=== PATIENT | male | born 1940 | race Caucasian/White ===

== ENCOUNTER → 2023-07-14 09:54 | Outpatient (REF) | payer MEDICARE, SELFPAY | LOC: REG 09:54 | PROVIDERS: ATTENDING PHYSICIAN Internal Medicine | DX: Z04.3 Encounter for examination and observation following other accident (principal); W19.XXXA Unspecified fall, initial encounter; J90 Pleural effusion, not elsewhere classified; J98.11 Atelectasis | CPT/HCPCS: 71046; 71110 ==

== ENCOUNTER → 2023-09-15 13:52 | Outpatient (REF) | payer MEDICARE, SELFPAY ==
[2023-09-15 14:35] LABS: % Basophils 0.6 % (0-2); % Eosinophils 2.9 % (0-6); % Immature Granulocytes 0.2 % (0-0.5); % Lymphocytes 12.2 % (20.5-51.1); % Monocytes 10.5 % (1.7-9.3); % Neutrophils 73.6 % (42.2-75.2); Absolute Eosinophils 0.2 10^3/uL (0-0.7); Absolute Lymphocytes 0.6 10^3/uL (1.2-3.4); Absolute Monocytes 0.6 10^3/uL (0.1-0.6); Absolute Neutrophils 3.9 10^3/uL (1.4-6.5); Hematocrit 24.4 % (39.0-52.0); Hemoglobin 7.9 g/dL (13.0-18.0); Mean Corp Hgb Conc. 32.4 g/dL (33.0-37.0); Mean Corpuscular Volume 89.7 fL (80.0-94.0); Mean Platelet Volume 11.6 fL (7.4-10.4); Nucleated Red Blood Cells % 0 % (-); Platelet Count 223 10^3/uL (130-400); Red Blood Cell Count 2.72 10^6/uL (4.70-6.10); Red Cell Dist. Width 16.2 % (11.5-14.5); White Blood Cell Count 5.2 10^3/uL (4.8-10.8)
[2023-09-15 15:06] LABS: Albumin 3.9 g/dl (3.5-5.0); Blood Urea Nitrogen 44 mg/dl (9-20); Calcium 8.9 mg/dl (8.4-10.2); Carbon Dioxide 23 mmol/L (22-30); Chloride 111 mmol/L (98-107); Glucose 100 mg/dl (70-99); Iron 65 ug/dl (49-181); Phosphorus 4.5 mg/dl (2.5-4.5); Potassium 4.9 mmol/L (3.5-5.1); Sodium 141 mmol/L (135-145); eGFR 37.35
[2023-09-15 15:10] LABS: Urine Protein 8 mg/dl (0-12)
[2023-09-15 15:15] LABS: Percent Saturation 16 % (20-50); Total Iron Binding Capacity 391 ug/dl (261-462)
[2023-09-15 15:48] LABS: Ferritin 10.6 ng/ml (17.9-464.0)
[2023-09-15 16:20] LABS: Folate 10.8 ng/ml (2.76-20); Vitamin B12 352 pg/ml (239-931)
[2023-09-18 11:11] LABS: Intact PTH 61.7 pg/ml (13.6-85.8)
[2023-09-19 20:55] LABS: Albumin 3.58 g/dL (3.75-5.01); Alpha 1 Globulin 0.33 g/dL (0.19-0.46); Alpha 2 Globulin 0.81 g/dL (0.48-1.05); SPEP IFE Reflex Not Done; Total Protein-Electrophoresis 6.5 g/dL (6.3-8.2)
== END ==
LOC: REG 13:52
PROVIDERS: ATTENDING PHYSICIAN Internal Medicine; FAMILY PHYSICIAN Internal Medicine
DX: N18.32 Chronic kidney disease, stage 3b (principal); D64.9 Anemia, unspecified
CPT/HCPCS: 36415; 80069; 82570; 82607; 82728; 82746; 83540; 83550; 83970; 84155; 84156; 84165; 85025

== ENCOUNTER → 2023-09-20 12:57 | Outpatient (REF) | payer MEDICARE, SELFPAY ==
[2023-09-23 16:41] LABS: 24 Hour Urine Total Volume 1600 mL; Ur Free Lambda Excretion/day 1.34 mg/d; Urine Collection Length 24 hr; Urine Free Kappa Excretion/Day 9.38 mg/d; Urine Free Kappa Light Chains 5.86 mg/L (0.00-32.90); Urine Free Lambda Light Chains 0.84 mg/L (0.00-3.79)
== END ==
LOC: REG 12:57
PROVIDERS: ATTENDING PHYSICIAN Internal Medicine; FAMILY PHYSICIAN Internal Medicine
DX: N18.32 Chronic kidney disease, stage 3b (principal)
CPT/HCPCS: 83521; 84156; 86335

== ENCOUNTER 2023-09-27 14:26 | Inpatient (IN) | payer MEDICARE, SELFPAY ==
[2023-09-27] VITALS (14 sets, daily range): BP systolic 110–130; BP diastolic 46–55
--- NOTE | 2023-09-27 11:53 | ED.GENMED ---
History of Present Illness
General
Chief Complaint: Abnormal Lab Value
Source: patient
Exam Limitations: none
Time Seen by Provider: 09/27/23 11:41
Travel History
Have you had any contact with someone who has COVID-19?: No
Do you have any symptoms of coronavirus? Fever > 100 degrees, chills, cough, shortness of breath, sore throat, loss of taste or smell, muscle aches, or headache?: No
History of Present Illness
History of Present Illness:
83-year-old male on Xarelto presents after seeing the mobile service rv technician today for low hemoglobin. He had blood work drawn last week and was told he had a hemoglobin of 7.9. He is short of breath with exertion. He denies chest or abdominal pain. He
denies any dark or tarry stools. He denies any new leg swelling. No weight gain. No other complaints
Past History
Past History
ED Past Medical History: HTN, Hypercholesterolemia, Valvular disease (Aortic stenosis, aortic insufficiency) and Other (Pulmonary embolism, prostate cancer)
ED Past Surgical History: Cardiac (Ablation) and Urological (Prostatectomy, cardiac ablations)
Social History
Tobacco: Former smoker
Alcohol: Occasional
Personal: (Atrial fibrillation, prostatectomy for prostate cancer and )
Living: with family
Employment: Retired
Family History
Family History: Negative Diabetes, Hypertension or CAD
Phy Exam
Physical Exam
Physical Exam:
General: Well-appearing male no acute respiratory distress
. HEENT: Normocephalic atraumatic
Heart: Regular rate and rhythm no murmurs
Course
Orders/Labs/Results
Orders:
Orders
09/27/23 11:56
Type+Screen Urgent
Complete Blood Count/With Diff Urgent
Comprehensive Metabolic Panel Urgent
NT-proBNP Urgent
09/27/23 12:45
CR Chest - 2 Views Urgent
Comment:
Reason For Exam: anemia, elevated bnp
09/27/23 13:12
Blood Bank Products [* Blood Bank Products] Urgent
Blood Bank Products: *Packed RBC Leuko(PRBC's)
Quantity: 2
Transfuse Today: Yes
Reason: Anemia
Abnormal Lab Results
09/27/23
11:56
RBC 2.27 L 10^6/uL
(4.70-6.10)
Hgb 6.6 L* g/dL
(13.0-18.0)
Hct 20.8 L* %
(39.0-52.0)
MCHC 31.7 L g/dL
(33.0-37.0)
RDW 16.2 H %
(11.5-14.5)
MPV 11.5 H fL
(7.4-10.4)
Absolute Lymphs (auto) 0.5 L 10^3/uL
(1.2-3.4)
Neutrophils % 80.8 H %
(42.2-75.2)
Lymphocytes % 8.6 L %
(20.5-51.1)
Chloride 109 H mmol/L
(98-107)
BUN 52 H mg/dl
(9-20)
Creatinine 2.1 H mg/dL
(0.7-1.3)
Crossmatch IS Only See Detail
09/27/23 11:56
09/27/23 11:56
Vital Signs
Initial and Last Documented VS:
Initial Vital Signs
Temp Pulse Resp BP Pulse Ox
98.2 F 82 16 110/50 98
09/27/23 11:21 09/27/23 11:21 09/27/23 11:21 09/27/23 11:21 09/27/23 11:21
Last Documented Vital Signs
Temp Pulse Resp BP Pulse Ox
98.2 F 82 16 110/50 98
09/27/23 11:21 09/27/23 11:21 09/27/23 11:21 09/27/23 11:21 09/27/23 11:21
*Critical Care Note
Total Time (30-74mins, 75-104mins- exclusive of procedures): Not Applicable
Update Note
Update Note:
Rectal exam shows brown color quickly heme positive stool. Hemoglobin 6.6 hematocrit 20.8. Vital signs are stable. Ordered 2 units of packed red blood cells will admit to hospital for symptomatic anemia and anticoagulated patient in the setting
of aortic stenosis
ED Attending Note
-
Portions of this chart may have been created with voice recognition software.� Occasional wrong word or��sound alike� substitutions may have occurred due to the inherent limitations of voice recognition software.
Discharge Plan
Departure
Patient Disposition: Admit
Date of Disposition: 09/27/23
Time of Disposition: 13:30
Admit to: Telemetry
Presentation/result/management discussed w/ accepting MD/DO: Hospitalist
Discharge Problem:
Symptomatic anemia
Prescriptions:
No Action
simvastatin 20 MG tablet
20 mg PO HS
Citrucel 500 MG tablet
500 mg PO DAILY
furosemide 80 MG tablet
80 mg PO DAILY
Sleep Aid (doxylamine) 25 MG tablet
25 mg PO HS
amlodipine 10 MG tablet
10 mg PO DAILY Qty: 30 3RF
irbesartan 150 MG tablet
150 mg PO DAILY Qty: 30 3RF
carvedilol 3.125 MG tablet
6.25 mg PO BID
ascorbic acid (vitamin C) [Vitamin C] 1,000 mg Tablet
1,000 mg PO DAILY
calcium carbonate-vitamin D3 [Calcium 600 + D(3)] 600 mg-10 mcg (400 unit) Tablet
1 tab PO DAILY
Xarelto 15 mg Tablet
15 mg PO QPM
Motrin
2 tab PO DAILYPRN PRN (Reason: mild pain)
Referrals:
Daniel Forrest MD [Family Provider] -
Interventions
Interventions:
*Risk Screen - Suicide Last Done: 09/27/23 12:05
*General Assessment Last Done: 09/27/23 12:05
*Neglect/Abuse Screening Last Done: 09/27/23 12:05
*ED COVID-19 Vaccine History Last Done: 09/27/23 11:21
[2023-09-27 12:23] LABS: % Basophils 0.5 % (0-2); % Eosinophils 1.2 % (0-6); % Immature Granulocytes 0.3 % (0-0.5); % Lymphocytes 8.6 % (20.5-51.1); % Monocytes 8.6 % (1.7-9.3); % Neutrophils 80.8 % (42.2-75.2); Absolute Eosinophils 0.1 10^3/uL (0-0.7); Absolute Lymphocytes 0.5 10^3/uL (1.2-3.4); Absolute Monocytes 0.5 10^3/uL (0.1-0.6); Absolute Neutrophils 4.8 10^3/uL (1.4-6.5); Mean Corp Hgb Conc. 31.7 g/dL (33.0-37.0); Mean Corpuscular Hgb 29.1 pg (27.0-31.0); Mean Corpuscular Volume 91.6 fL (80.0-94.0); Mean Platelet Volume 11.5 fL (7.4-10.4); Nucleated Red Blood Cells % 0 % (-); Platelet Count 247 10^3/uL (130-400); Red Blood Cell Count 2.27 10^6/uL (4.70-6.10); Red Cell Dist. Width 16.2 % (11.5-14.5); White Blood Cell Count 5.9 10^3/uL (4.8-10.8)
[2023-09-27 12:24] LABS: ALT (SGPT) 19 U/L (0-50); AST (SGOT) 23 U/L (17-59); Alkaline Phosphatase 79 U/L (38-126); Blood Urea Nitrogen 52 mg/dl (9-20); Calcium 8.9 mg/dl (8.4-10.2); Carbon Dioxide 24 mmol/L (22-30); Chloride 109 mmol/L (98-107); Glucose 90 mg/dl (70-99); Potassium 4.7 mmol/L (3.5-5.1); Sodium 141 mmol/L (135-145); Total Bilirubin 0.6 mg/dl (0.2-1.3); Total Protein 6.4 g/dl (6.3-8.2); eGFR 31.04
[2023-09-27 12:32] LABS: Hematocrit 20.8 % (39.0-52.0); Hemoglobin 6.6 g/dL (13.0-18.0)
[2023-09-27 12:33] LABS: NT-proBNP 3320 pg/ml
--- NOTE | 2023-09-27 13:34 | CON.GI ---
Addendum entered and electronically signed by Kimmy Wild MD 09/27/23 16:20:
I saw and examined the patient.
The FORKLIFT TECHNICIAN or PA's note was reviewed and I agree with the note.
Comment: 83-year-old male with history of atrial fibrillation on Xarelto, history of aortic stenosis, PE, prostrate cancer, presenting with shortness of breath and outpatient labs showing hemoglobin of 6.6. He reports that he was noted to have
anemia in the last few years but more so recently, was on oral iron previously but it was giving him black stool and had to stop, he was supposed to get IV iron infusion in the next couple of days but was sent to the ER with a most recent
hemoglobin. Denies any abdominal pain, nausea, vomiting, heartburn, trouble swallowing, constipation, diarrhea, blood in the stool or black stool. No unintentional weight loss. He does take Motrin as needed but not on a regular daily basis. Last
colonoscopy [address] 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
Rectal exam in the ER with heme positive stool.
-Iron deficiency anemia with heme positive stool
Rule out esophagitis, ulcer disease, gastritis versus other
Xarelto is on hold at this time
Will do upper endoscopy tomorrow to evaluate followed by colonoscopy the day after
Received 2 units of packed red blood cells in the hospital
Monitor H&H and transfuse as needed
Will follow
Original Note:
Consultation
-
Date/Time Consultation Requested: 09/27/23 1330
Date/Time Consultation Performed: 09/27/23 1345
Requesting Provider: Cas Roberts PA-C
Performing Provider: ERNIE Khoury, Kimmy Wild MD
Reason for Consultation: anemia
Medical History
Chief Complaint / HPI
Chief Complaint: shortness of breath
History of Present Illness:
Pt is an 83yo with afib on Xarelto, prior ablation, pacer, first degree AV block, , bicuspid AV, PE, prostate CA, colon polyps with resection of adenoma at IC valve by Dr. Page 2004, fall in June 2023 presents today with shortness of
breath after seen by plant operations worker and noted hbg 6.6. last hbg 7.9 on 09/15/23 and 9.3 on 01/20/23. Rectal in ER brown heme + stool. Pt admits to discussing need for iron infusion but no prior transfusion in past. Pt also recalls difficulty with vagal
episode with procedure in past.
Pt admits to fatigue and shortness of breath but denies dysphagia, GERD, nausea, vomiting, abdominal pain, diarrhea, constipation, visible blood or black in stools.
last scopes:
05/2015 EGD-min[facility]ale duodenal polyps, gastric polyps, nodularity in greater curvature, HH, irreg zline bx neg
09/2013- colonoscopy minissale- 3 mm polyp IC valve, diverticulosis, non bleeding hemorrhoid, absent prostate bx bx neg
Past Medical History
Past Medical History: Arrhythmias (afib on xarelto, AV block), Cancer (prostate CA), HTN, Hypercholesterolemia, Valvular Disease (, aortic insufficiency, bicuspid AV) and Other (PE, fall in June 2023)
Past Surgical History: Cardiac (pacer, ablation) and Orthopedic (knee surgery)
Social History
Tobacco: Former Smoker (quit 1983)
Alcohol: Other (prior social ETOH quit in June)
Drug: None
Personal:
Living: With Family
Employment: Retired
Family History
Family History: Other (no family hx colon CA or polyps)
Allergies / Home Medications
Allergy/AdvReac Type Severity Reaction Status Date / Time
lisinopril [Lisinopril] Allergy Intermediate cough Verified 09/27/23 11:22
sotalol [Sotalol] Allergy Intermediate bradycardia Verified 09/27/23 11:22
candesartan [Candesartan] Allergy Unknown PT UNAWARE Verified 09/27/23 11:22
of allergy
Medication Instructions Recorded
simvastatin 20 mg tablet 20 mg PO HS 09/27/09
methylcellulose (laxative) 500 mg 500 mg PO DAILY 08/30/15
tablet (Citrucel)
doxylamine succinate 25 mg tablet 25 mg PO HS 06/08/17
(Sleep Aid (doxylamine))
furosemide 80 mg tablet 80 mg PO DAILY 06/08/17
amlodipine 10 mg tablet 10 mg PO DAILY ##30 06/11/17
irbesartan 150 mg tablet 150 mg PO DAILY ##30 06/11/17
carvedilol 3.125 mg tablet 6.25 mg PO BID 09/22/17
Motrin 2 tab PO DAILYPRN PRN mild pain 09/27/23
ascorbic acid (vitamin C) 1,000 mg 1,000 mg PO DAILY 09/27/23
tablet (Vitamin C)
calcium carbonate 600 mg-vitamin 1 tab PO DAILY 09/27/23
D3 10 mcg (400 unit) tablet
(Calcium 600 + D(3))
rivaroxaban 15 mg tablet (Xarelto) 15 mg PO QPM 09/27/23
Review of Systems
-
History Source: Patient
Constitutional: Reports Weight Loss (10 lbs after fall now improving)
EENT: Reports No Symptoms
Respiratory: Reports Trouble Breathing (with exertion)
Cardiac: Reports No Symptoms
Abdomen/GI: Reports No Symptoms
: Reports No Symptoms
Musculoskeletal: Reports No Symptoms
Skin: Reports No Symptoms
Neurological: Reports Weakness
Endocrine: Reports No Symptoms
Hematologic/Lymphatic: Reports No Symptoms
Vital Signs
Temp Pulse Resp BP Pulse Ox
98.2 F 82 16 110/50 98
09/27/23 11:21 09/27/23 11:21 09/27/23 11:21 09/27/23 11:21 09/27/23 11:21
Physical Exam
Exam
General: Well Developed, Well Nourished, No Apparent Distress and Other (pale appearing)
HEENT: Normocephalic and Anicteric
Respiratory: Clear
Cardiac: Regular Rhythm (with pacer)
GI: Soft, Non Tender and Non Distended
Musculoskeletal: No Clubbing and No Cyanosis
Skin: Warm and Dry
Neuro: Awake, Alert and AO x 3
Psych: Calm
Results
WBC 5.9 10^3/uL (4.8-10.8) 09/27/23 11:56
Hgb 6.6 g/dL (13.0-18.0) L* 09/27/23 11:56
Hct 20.8 % (39.0-52.0) L* 09/27/23 11:56
MCV 91.6 fL (80.0-94.0) 09/27/23 11:56
Plt Count 247 10^3/uL (130-400) 09/27/23 11:56
Absolute Neuts (auto) 4.8 10^3/uL (1.4-6.5) 09/27/23 11:56
Sodium 141 mmol/L (135-145) 09/27/23 11:56
Potassium 4.7 mmol/L (3.5-5.1) 09/27/23 11:56
Chloride 109 mmol/L (98-107) H 09/27/23 11:56
Carbon Dioxide 24 mmol/L (22-30) 09/27/23 11:56
BUN 52 mg/dl (9-20) H 09/27/23 11:56
Creatinine 2.1 mg/dL (0.7-1.3) H 09/27/23 11:56
Calcium 8.9 mg/dl (8.4-10.2) 09/27/23 11:56
Total Bilirubin 0.6 mg/dl (0.2-1.3) 09/27/23 11:56
AST 23 U/L (17-59) 09/27/23 11:56
ALT 19 U/L (0-50) 09/27/23 11:56
Alkaline Phosphatase 79 U/L (38-126) 09/27/23 11:56
Diagnostic Image Results:
08/2023 renal US
IMPRESSION: No focal abnormality of the bladder with no postvoid bladder residual.
Simple cyst arising from the lower pole the right kidney. No evidence of pelvicalyceal dilation bilaterally.
Suggestion of mild bilateral diffuse renal parenchymal thinning.
�
05/2015 EGD-minissale duodenal polyps, gastric polyps, nodularity in greater curvature, HH, irreg zline bx neg
09/2013- colonoscopy minissale- 3 mm polyp IC valve, diverticulosis, non bleeding hemorrhoid, absent prostate bx bx neg
Assessment / Plan
-
Pt is an 83yo with afib on Xarelto, prior ablation, pacer, first degree AV block, , bicuspid AV, PE, prostate CA, colon polyps with resection of adenoma at IC valve by Dr. Page 2004, fall in June 2023 presents today with shortness of
breath after seen by plant operations worker and noted hbg 6.6. last hbg 7.9 on 09/15/23 and 9.3 on 01/20/23. Rectal in ER brown heme + stool. Pt admits to discussing need for iron infusion but no prior transfusion in past. Occasional NSAID use. 05/2015
EGD-minissale duodenal polyps, gastric polyps, nodularity in greater curvature, HH, irreg zline bx neg 09/2013- colonoscopy minissale- 3 mm polyp IC valve, diverticulosis, non bleeding hemorrhoid, absent prostate bx bx neg
-heme + anemia with recent low iron levels
-afib on Xarelto with prior ablation
-fall 06/2023
-hx vagal episode with piror colonoscopy in past.
other medical problems:
-pacer
-first degree AV block
-
-PE
-prostate CA
-colon polyps with hx resection of adenoma IC valve 2004
PLAN:
etiology of anemia related to PUD with occasional NSAID use, ectasia anywhere in GI tract with hx , colon polyp, mass vs other
agree with transfusion
last Xarelto 2/11 PM
ok for clear diet
reviewed option with transfusion and monitor hbg, less invasive testing with UGI/virtual colon with limitation with AVM's etc, vs EGD/colon(IP vs OP testing)
pt considering options
pt review hx vagal episode in past with procedure
will review with Dr. Wild for testing
will follow
-
-
Thank you for consultation and allowing me to participate in the patient's care. Please call the hog confinement system manager GI physician during the after hours with any questions or concerns.
--- NOTE | 2023-09-27 13:38 | HPS.HSE ---
Addendum entered and electronically signed by Ochoa Duran MD 09/27/23 15:30:
I saw and examined the patient.
The TELETYPE MECHANIC or PA's note was reviewed and I agree with the note.
Comment: 83 y/o M hx of HTN, HLD, on Xarelto, hx of PE, prostate Cancer presents to ER with symptomatic anemia with SOB and Hb of 6.6. He was sent in by Nephrology. Last Hb 7.9 late 10 days prior and 9.3 in January. in ER, heme+ stools. No prior hx
of GI bleed and was planned for IV Iron infusions but no prior hx of blood transfusions. No other complaints.
Physical Exam
General:�Well Developed, Well Nourished and No Apparent Distress
HEENT:�NormoCephalic, Moist mucous membranes and Atraumatic
Respiratory:�Clear
Cardiac:�S1/S2 and Regular Rhythm; No Murmur or Rub
GI:�Soft, Non Tender, Non Distended and Normal Bowel Sounds; No Organomegaly
Rectal:�Deferred by Provider
Musculoskeletal:�No Clubbing, No Cyanosis and Other (Bilateral lower extremities pitting edema)
Skin:�No Rash
Neuro:�AO x 3 and Nonfocal/grossly intact
Psych:�Calm
Assessment:
acute symptomatic blood loss anemia
- check anemia indices
- type/screen - 2 units today; IV Lasix in between units
- hold Xarelto
- clears (no reds)
- PPI drip
- GI consulted
hx of
- follow BP closely
Essential HTN
- hold ARB/CCB
HLD - statin
hx of parox Afib
- hold Xarelto
hx of PE
hx of prostate Cancer
DVT ppx: SCDs
Code: Full
Original Note:
Family Physician
-
Family Physician: Cas Frorest
Chief Complaint
-
low hemoglbin
History of Present Illness
83-year-old male with past medical history of hypertension, hyperlipidemia, aortic stenosis, pulmonary embolism, prostate cancer, A-fib on Xarelto presents after seeing the rn endocrinology today for low hemoglobin.� He had blood work drawn last week
and was told he had a hemoglobin of 7.9.� Patient is scheduled for iron infusion on Wednesday. He was asked to follow-up with [facility]. He had blood work done last week again and was noted to have low hemoglobin.He was asked by nephrology to
come to the ER. Patient denied any black, dark or bloody stools. Denied any hematemesis, denied any abdominal pain. Patient denied any headache, dizziness, syncopal episode. Patient denied fever, chills, chest pain. Patient stated short of
breath with exertion for 1 week. Patient has chronic bilateral lower extremity edema. noted worsening of edema for past 1 week. Denied dysuria hematuria.
heme positive in ER. hgb 6.6. 2 units ordered in ER. admitting for further management.
Medical History
Past Medical History
Past Medical History: Reports Other
Additional Past Medical History:
Hypertension
Hyperlipidemia
Aortic insufficiency
Pulmonary embolism
Prostate cancer
A-fib
Past Surgical History: Reports Other
Additional Past Surgical History:
Multiple cardiac ablation
Prostatectomy
Social History
Tobacco: Former Smoker
Alcohol: Former
Drug: None
Family History
Family History: Not pertinent
Allergies / Home Medications
Allergies reflects when Allergies were last updated in [facility].
Home Medications with original date entered in [facility]
Allergy/Medication List:
Allergies
Allergy/AdvReac Type Severity Reaction Status Date / Time
lisinopril [Lisinopril] Allergy Intermediate cough Verified 09/27/23 11:22
sotalol [Sotalol] Allergy Intermediate bradycardia Verified 09/27/23 11:22
candesartan [Candesartan] Allergy Unknown PT UNAWARE Verified 09/27/23 11:22
of allergy
Home Medications
simvastatin 20 mg tablet 20 mg PO HS 09/27/09
methylcellulose (laxative) 500 mg tablet (Citrucel) 500 mg PO DAILY 08/30/15
doxylamine succinate 25 mg tablet (Sleep Aid (doxylamine)) 25 mg PO HS 06/08/17
furosemide 80 mg tablet 80 mg PO DAILY 06/08/17
carvedilol 3.125 mg tablet 6.25 mg PO BID 09/22/17
Motrin 2 tab PO DAILYPRN PRN mild pain 09/27/23
amlodipine 10 mg tablet 10 mg PO DAILY Blood Pressure 09/27/23
ascorbic acid (vitamin C) 1,000 mg tablet (Vitamin C) 1,000 mg PO DAILY 09/27/23
calcium carbonate 600 mg-vitamin D3 10 mcg (400 unit) tablet (Calcium 600 + D(3)) 1 tab PO DAILY 09/27/23
irbesartan 150 mg tablet 150 mg PO DAILY Blood Pressure 09/27/23
rivaroxaban 15 mg tablet (Xarelto) 15 mg PO QPM 09/27/23
Review of Systems
-
Constitutional: Reports No Symptoms
EENT: Reports No Symptoms
Respiratory: Reports Trouble Breathing
Cardiac: Reports No Symptoms
Abdomen/GI: Reports No Symptoms
: Reports No Symptoms
Musculoskeletal: Reports Edema (Bilateral lower extremity edema)
Skin: Reports No Symptoms
Neurological: Reports No Symptoms
Endocrine: Reports No Symptoms
Hematologic/Lymphatic: Reports No Symptoms
Psych: Reports No Symptoms
Physical Exam
Vital Signs
Vital Signs
Temp Pulse Resp BP Pulse Ox
98.2 F 82 16 110/50 98
09/27/23 11:21 09/27/23 11:21 09/27/23 11:21 09/27/23 11:21 09/27/23 11:21
Physical Exam
General: Well Developed, Well Nourished and No Apparent Distress
HEENT: NormoCephalic, Moist mucous membranes and Atraumatic
Respiratory: Clear
Cardiac: S1/S2 and Regular Rhythm; No Murmur or Rub
GI: Soft, Non Tender, Non Distended and Normal Bowel Sounds; No Organomegaly
Rectal: Deferred by Provider
Musculoskeletal: No Clubbing, No Cyanosis and Other (Bilateral lower extremities pitting edema)
Skin: No Rash
Neuro: AO x 3 and Nonfocal/grossly intact
Psych: Calm
Laboratory Results
-
09/27/23 11:56
09/27/23 11:56
Laboratory Results
Total Bilirubin 0.6 mg/dl (0.2-1.3) 09/27/23 11:56
AST 23 U/L (17-59) 09/27/23 11:56
ALT 19 U/L (0-50) 09/27/23 11:56
Alkaline Phosphatase 79 U/L (38-126) 09/27/23 11:56
Data Reviewed
-
Lab Data: Labs Reviewed by me
Impression/Plan
-
#acute blood loss anemia
-hgb 6.6
-brown heme positive stool
-Protonix
-2 units or PRBC in ER
-NPO after MN
-clear liquid diet
-trend hgb
=GI consult
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
-cr 2.1
-trend bmp
#hxt of Nonobstructive coronary artery disease mitral regurg/Mild to moderate mitral regurgitation and mild mitral stenosis
#hxt of Moderate aortic insufficiency and moderate aortic stenosis
-BNP 3320, CHEST X RAY with Mild pulmonary vascular congestion. Mild cardiac enlargement.Tiny bilateral pleural effusions.
-hold oral Lasix due to BENITO
-Lasix iv in between transfusion
#History of bilateral PE in 2012.
-hold Xarelto
#Chronic bilateral lower extremity edema.
# Persistent atrial fibrillation
-obtain EKG
-multiple cardiac ablation in the past
-CTm
-Coreg continued with hold parameter
#essential htn
-BP stable
-hold Norvasc and irbesartan due ot soft BP
#HLD
-statin continued
#DVT prophylaxis
-scd
#CODE Status
-full code
[2023-09-27] MEDS: PROTONIX IV 80 MG IV (13:47)
[2023-09-27] MEDS: PROTONIX 100 IV (13:47)
[2023-09-27 14:52] LABS: Iron 47 ug/dl (49-181)
[2023-09-27 15:01] LABS: Percent Saturation 11 % (20-50); Total Iron Binding Capacity 421 ug/dl (261-462)
[2023-09-27 15:28] LABS: Ferritin 7.9 ng/ml (17.9-464.0)
[2023-09-27 16:00] LABS: Vitamin B12 348 pg/ml (239-931)
[2023-09-27] MEDS: LASIX 40 MG IV (16:12)
--- NOTE | 2023-09-27 16:54 | PTCARENOTE ---
patient admitted from ED for anemia. 1st unit of PRBC is infusing. the order to give 2 PRBC units with IV Lasix 40 mg in between. H&H scheduled for 6pm. patient is asymptomatic. denies dizziness, lightheadedness, VSS. denies pain. NPO with exception
of sips of clera up until 4 hrs prior EGD tomorrow. assessment as documented. cont to monitor
[2023-09-27 20:42] LABS: Hematocrit 23.8 % (39.0-52.0); Hemoglobin 7.9 g/dL (13.0-18.0)
[2023-09-27] MEDS: COREG PO (21:02)
[2023-09-27] MEDS: LIPITOR 10 MG PO (21:03)
[2023-09-28] VITALS (7 sets, daily range): BP systolic 16–150; BP diastolic 45–57
[2023-09-28] MEDS: PROTONIX 100 IV ×2 (00:08→09:03)
[2023-09-28 00:45] LABS: Hematocrit 23.3 % (39.0-52.0); Hemoglobin 7.8 g/dL (13.0-18.0)
[2023-09-28 06:21] LABS: INR 1.44; PT 17.4 Sec (11.4-14.6)
[2023-09-28 06:22] LABS: Hemoglobin 7.8 g/dL (13.0-18.0); Mean Corp Hgb Conc. 32.5 g/dL (33.0-37.0); Mean Corpuscular Hgb 29.3 pg (27.0-31.0); Mean Corpuscular Volume 90.2 fL (80.0-94.0); Mean Platelet Volume 11.5 fL (7.4-10.4); Platelet Count 208 10^3/uL (130-400); Red Blood Cell Count 2.66 10^6/uL (4.70-6.10); Red Cell Dist. Width 15.5 % (11.5-14.5); White Blood Cell Count 6.2 10^3/uL (4.8-10.8)
[2023-09-28 06:42] LABS: Blood Urea Nitrogen 43 mg/dl (9-20); Calcium 8.3 mg/dl (8.4-10.2); Carbon Dioxide 24 mmol/L (22-30); Chloride 110 mmol/L (98-107); Estimated Creatinine Clearance 32 ml/min; Glucose 79 mg/dl (70-99); Sodium 141 mmol/L (135-145)
[2023-09-28] MEDS: COREG PO ×2 (08:48→21:36)
[2023-09-28] MEDS: FERRLECIT 110 MG IV (13:45)
--- NOTE | 2023-09-28 15:29 | W.PN.HOSP.TC ---
Today's Communication/Plan
-
colonoscopy tomorrow
Assessment / Plan
Assessment / Plan
Assessment:
acute symptomatic blood loss anemia
- s/p 2 units and Hb is 7.8
- anemia workup shows iron deficiency; IV iron course started
- hold Xarelto
- clears (no reds)
- PPI BID
- GI following
- EGD 09/28 negative
- Colonoscopy: planned tomorrow
hx of
- follow BP closely
Essential HTN
- hold ARB/CCB
HLD - statin
hx of parox Afib
- hold Xarelto
hx of PE
hx of prostate Cancer
DVT ppx: SCDs
Code: Full
Anticipated Discharge: 24 - 48 hours
Subjective/Interval History
-
Date of Service: September 28, 2023
late entry seen prior to EGD and denied any new complaints
Objective Data
-
Labs:
Laboratory Results
09/28/23
05:15
WBC 6.2
Hgb 7.8 L
Hct 24.0 L
Plt Count 208
PT 17.4 H
INR 1.44
Sodium 141
Potassium 4.0
Chloride 110 H
Carbon Dioxide 24
BUN 43 H
Creatinine 1.9 H
Glucose 79
Calcium 8.3 L
Vital Signs:
Vital Signs
Temp Pulse Resp BP Pulse Ox
97.8 F 60 16 119/46 98
09/28/23 12:10 09/28/23 12:10 09/28/23 12:10 09/28/23 12:10 09/28/23 12:10
I&O
09/27/23 09/28/23 09/29/23
06:59 06:59 06:59
Intake Total 1340 / 1340
Output Total 1200 / 1200
Balance 140 / 140
Physical Exam
-
General: No Apparent Distress
HEENT: Normocephalic and Atraumatic
Respiratory: Negative Wheezes or Rales
Cardiac: Regular Rhythm and S1/S2
GI: Soft and Nontender
Genito-urinary: No Costovertebral Tender
Neuro: AO x 3
Psych: Calm
Data Reviewed
-
Total Time Spent with Patient (in minutes): 43
Labs: Labs Reviewed by me
--- NOTE | 2023-09-28 15:31 | CM ---
Alert awake oriented patient who lives with his Carmen who lives in a 2 story home with 4 step to enter and 13 steps to bed and bathroom. He is independent in driving and in all activities of daily living.He was offered Vn he declined need.For
colonoscopy tomorrow.
No VN hx / No SNF history
Ph[facility]
PCP DR Marco Churchill
PLAN Home Declined VN
[2023-09-28] MEDS: NULYTELY SOLUTION 4 LITERS PO (17:31)
[2023-09-28] MEDS: PROTONIX IV 40 MG IV (21:36)
[2023-09-28] MEDS: LIPITOR 10 MG PO (21:36)
[2023-09-28] MEDS: NSS (PRESERVATIVE FREE) 10 ML IV (21:36)
[2023-09-28] MEDS: TYLENOL 650 MG PO (22:29)
[2023-09-29 03:40] VITALS: BP 121/51
[2023-09-29 06:24] LABS: Hematocrit 25.4 % (39.0-52.0); Hemoglobin 8.2 g/dL (13.0-18.0); Mean Corp Hgb Conc. 32.3 g/dL (33.0-37.0); Mean Corpuscular Hgb 29.4 pg (27.0-31.0); Mean Platelet Volume 11.8 fL (7.4-10.4); Platelet Count 203 10^3/uL (130-400); Red Blood Cell Count 2.79 10^6/uL (4.70-6.10); Red Cell Dist. Width 15.3 % (11.5-14.5); White Blood Cell Count 7.5 10^3/uL (4.8-10.8)
--- NOTE | 2023-09-29 06:24 | PTCARENOTE ---
Pt finished 4L Polyethylene Glycol in preparation to colonoscopy this morning. Pt still having brown stool with flecks of formed pieces. Will pass on to dayshift RN.
[2023-09-29 06:44] LABS: Blood Urea Nitrogen 34 mg/dl (9-20); Calcium 8.4 mg/dl (8.4-10.2); Carbon Dioxide 24 mmol/L (22-30); Chloride 109 mmol/L (98-107); Estimated Creatinine Clearance 34 ml/min; Glucose 98 mg/dl (70-99); Potassium 4.1 mmol/L (3.5-5.1); Sodium 138 mmol/L (135-145); eGFR 37.35
[2023-09-29 07:00] VITALS: BP 124/50
[2023-09-29] MEDS: TYLENOL 650 MG PO (08:02)
[2023-09-29] MEDS: NSS (PRESERVATIVE FREE) 10 ML IV (08:03)
[2023-09-29] MEDS: PROTONIX IV 40 MG IV (08:03)
[2023-09-29] MEDS: COREG 6.25 MG PO (08:07)
[2023-09-29 11:00] VITALS: BP 145/71
--- NOTE | 2023-09-29 11:05 | W.PN.HOSP.TC ---
Addendum entered and electronically signed by Ochoa Duran MD 09/30/23 08:55:
Yes, heme positive stool/acute blood loss anemia is related to/associated with/due to/exacerbated by Xarelto.
Parox Afib
Addendum entered and electronically signed by Ochoa Duran MD 09/29/23 13:48:
per GI: 'colon - few diverticulosis, small polyps (resected), severe hemorrhoids, otherwise normal. Can resume xarelto tomorrow'
More than 30 minutes spent in discharge including
Final examination of the patient
Summarizing hospital stay
Instructions for continuing care to all relevant caregivers
Preparation of discharge records, prescriptions, and referral forms
Total time spent (in minutes): 40
Original Note:
Today's Communication/Plan
-
colonoscopy today
Assessment / Plan
Assessment / Plan
Assessment:
acute symptomatic blood loss anemia
- s/p 2 units and Hb is 8.2
- anemia workup shows iron deficiency; IV iron course started
- hold Xarelto
- clears (no reds)
- PPI BID
- GI following
- EGD 09/28 negative
- Colonoscopy: planned today
hx of
- follow BP closely
Essential HTN
- hold ARB/CCB
HLD - statin
hx of parox Afib
- hold Xarelto
hx of PE
hx of prostate Cancer
DVT ppx: SCDs
Code: Full
Anticipated Discharge: Within 24 hours
Subjective/Interval History
-
Date of Service: September 29, 2023
received enema this AM for poor prep, but is now clearing more
Objective Data
-
Labs:
Laboratory Results
09/29/23
05:00
WBC 7.5
Hgb 8.2 L
Hct 25.4 L
Plt Count 203
Sodium 138
Potassium 4.1
Chloride 109 H
Carbon Dioxide 24
BUN 34 H
Creatinine 1.8 H
Glucose 98
Calcium 8.4
Vital Signs:
Vital Signs
Temp Pulse Resp BP Pulse Ox
97.8 F 64 16 124/50 96
09/29/23 07:00 09/29/23 08:07 09/29/23 07:00 09/29/23 08:07 09/29/23 07:00
I&O
09/28/23 09/29/23 09/30/23
06:59 06:59 06:59
Intake Total 1340 / 1340 700 / 700
Output Total 1200 / 1200 400 / 400
Balance 140 / 140 300 / 300
Physical Exam
-
General: No Apparent Distress
HEENT: Normocephalic and Atraumatic
Respiratory: Negative Wheezes or Rales
Cardiac: Regular Rhythm and S1/S2
GI: Soft and Nontender
Genito-urinary: No Costovertebral Tender
Neuro: AO x 3
Hematologic / Lymphatic: No Lymphadenopathy
Psych: Calm
Data Reviewed
-
Total Time Spent with Patient (in minutes): 45
Labs: Labs Reviewed by me
[2023-09-29 13:30] VITALS: BP 134/53
--- NOTE | 2023-09-29 13:51 | W.DS.TRANS ---
DC Summary - Cost Manager
-
Discharge Instructions:
Sleep Apnea Risk Intermediate
Discharge Diagnosis/Procedures GI bleed with colonoscopy showing few
diverticulosis, small polyps (resected with
biopsy pending), severe hemorrhoids, otherwise
normal.
Diet Regular
Activity As tolerated
Bathing Restrictions None
Instructions:
Stand-Alone Forms:
Changes to Home Medications: No
Discharge Medications:
DC Medications w/original date entered in [employer]
simvastatin 20 mg tablet 20 mg PO HS High Cholesterol 09/27/09
methylcellulose (laxative) 500 mg tablet (Citrucel) 500 mg PO DAILY Constipation 08/30/15
doxylamine succinate 25 mg tablet (Sleep Aid (doxylamine)) 25 mg PO HS sleep 06/08/17
furosemide 80 mg tablet 80 mg PO DAILY Fluid Retention/Swelling 06/08/17
carvedilol 3.125 mg tablet 6.25 mg PO BID Blood Pressure 09/22/17
Motrin 2 tab PO DAILYPRN PRN mild pain 09/27/23
amlodipine 10 mg tablet 10 mg PO DAILY Blood Pressure 09/27/23
ascorbic acid (vitamin C) 1,000 mg tablet (Vitamin C) 1,000 mg PO DAILY Supplement 09/27/23
calcium carbonate 600 mg-vitamin D3 10 mcg (400 unit) tablet (Calcium 600 + D(3)) 1 tab PO DAILY Supplement 09/27/23
irbesartan 150 mg tablet 150 mg PO DAILY Blood Pressure 09/27/23
rivaroxaban 15 mg tablet (Xarelto) 15 mg PO QPM Blood Clot Prevention/Tx 09/27/23
Home Medication Changes
Pending Results: No
Total time spent discharging patient (in min): 40
[2023-09-29] MEDS: FERRLECIT 110 MG IV (14:43)
--- NOTE | 2023-09-29 14:46 | CM ---
MD entered order for discharge.
Pt completed testing.
Pt said his Carmen would drive [place] home.
Offered Vn he declined need.
PLAN Home no needs
--- NOTE | 2023-09-30 08:36 | PN.CDI ---
CDI
- -
CDI:
Physician Documentation Request
Admit Date: 09/27/23 14:26
Dear Doctor Renee,
Patient diagnosis includes acute symptomatic blood loss anemia. Patient was found to have heme positive stool in ED. Patient's Xarelto was held.
Colonoscopy revealed few diverticulosis, small polyps (resected with biopsy pending), severe hemorrhoids.
Please clarify if a relationship exist between these conditions:
Yes, heme positive stool/acute blood loss anemia is related to/associated with/due to/exacerbated by Xarelto.
No, heme positive stool/acute blood loss anemia is not related to/associated with/due to/exacerbated by Xarelto.
Unable to determine
Use of terms such as suspected, likely, concern for, or probable (associated with a specific diagnosis that is being evaluated, monitored, or treated as if it exists) are acceptable and can be coded in the inpatient setting, when documented at the
time of discharge.
Thank you,
Criselda Garcia RN, BSN
CDI Specialist
tiger text
Please use your independent medical judgment in providing your response.
--- NOTE | 2023-09-30 08:42 | PN.CDI ---
CDI
- -
CDI:
Physician Documentation Request
Admit Date: 09/27/23 14:26
Dear Doctor Renee,
Patient admitted with symptomatic anemia.
H&P states 'history of parox. Afib' further down in the same note the atrial fibrillation is referred to as 'persistent'
In an attempt to clarify potential conflicting documentation, please clarify the type of atrial fibrillation:
Paroxysmal atrial fibrillation - terminates spontaneously or with intervention within 7 days of onset
Persistent atrial fibrillation - episodes of continuous AF that last more than 7 days and do not self-terminate
Other - please specify
Use of terms such as suspected, likely, concern for, or probable (associated with a specific diagnosis that is being evaluated, monitored, or treated as if it exists) are acceptable and can be coded in the inpatient setting, when documented at the
time of discharge.
Thank you,
Criselda Garcia RN, BSN
CDI Specialist
tiger text
Please use your independent medical judgment in providing your response.
== END 2023-09-29 17:38 | disposition home or self-care (01) | DRG 378 ==
LOC: 3 WEST ACU 14:26
PROVIDERS: Internal Medicine Gastroenterology; Nurse Practitioner Adult Health; Physician Assistant; Registered Nurse; ADMITTING PHYSICIAN Internal Medicine; CONSULT PHYSICIAN Internal Medicine Gastroenterology; EMERGENCY PHYSICIAN Emergency Medicine; FAMILY PHYSICIAN Internal Medicine
PROC: 30233N1 Transfusion of Nonautologous Red Blood Cells into Peripheral Vein, Percutaneous Approach (ICD-10-PCS; 2023-09-27)
PROC: 0DJ08ZZ Inspection of Upper Intestinal Tract, Via Natural or Artificial Opening Endoscopic (ICD-10-PCS; 2023-09-28)
PROC: 0DBN8ZX Excision of Sigmoid Colon, Via Natural or Artificial Opening Endoscopic, Diagnostic (ICD-10-PCS; 2023-09-29)
PROC: 0DBK8ZX Excision of Ascending Colon, Via Natural or Artificial Opening Endoscopic, Diagnostic (ICD-10-PCS; 2023-09-29)
DX: K57.31 Diverticulosis of large intestine without perforation or abscess with bleeding (principal); D62 Acute posthemorrhagic anemia; D68.32 Hemorrhagic disorder due to extrinsic circulating anticoagulants; K64.1 Second degree hemorrhoids; D12.2 Benign neoplasm of ascending colon; D12.5 Benign neoplasm of sigmoid colon; I12.9 Hypertensive chronic kidney disease with stage 1 through stage 4 chronic kidney disease, or unspecified chronic kidney disease; N18.32 Chronic kidney disease, stage 3b; I48.0 Paroxysmal atrial fibrillation
CPT/HCPCS: 88305; 36430; 71046; 80048; 80053; 82607; 82728; 82746; 83540; 83550; 83880; 85014; 85018; 85025; 85027; 85610; 86850; 86900; 86901; 86920; 96365; 96366; 99285; J2916; P9016

== ENCOUNTER 2023-10-04 08:33 | Inpatient (IN) | payer MEDICARE, SELFPAY ==
[2023-10-04] VITALS (12 sets, daily range): BP systolic 108–150; BP diastolic 39–54; BMI 30.6; BMI 32.0
[2023-10-04 06:07] LABS: % Basophils 0.1 % (0-2); % Eosinophils 1.3 % (0-6); % Immature Granulocytes 0.4 % (0-0.5); % Lymphocytes 4.9 % (20.5-51.1); % Neutrophils 84.3 % (42.2-75.2); Absolute Eosinophils 0.1 10^3/uL (0-0.7); Absolute Lymphocytes 0.3 10^3/uL (1.2-3.4); Absolute Monocytes 0.6 10^3/uL (0.1-0.6); Absolute Neutrophils 5.6 10^3/uL (1.4-6.5); Hematocrit 23.9 % (39.0-52.0); Hemoglobin 7.9 g/dL (13.0-18.0); Mean Corp Hgb Conc. 33.1 g/dL (33.0-37.0); Mean Corpuscular Hgb 29.5 pg (27.0-31.0); Mean Corpuscular Volume 89.2 fL (80.0-94.0); Mean Platelet Volume 11.3 fL (7.4-10.4); Nucleated Red Blood Cells % 0 % (-); Platelet Count 209 10^3/uL (130-400); Red Blood Cell Count 2.68 10^6/uL (4.70-6.10); Red Cell Dist. Width 15.7 % (11.5-14.5); White Blood Cell Count 6.7 10^3/uL (4.8-10.8)
[2023-10-04 06:29] LABS: ALT (SGPT) 19 U/L (0-50); AST (SGOT) 26 U/L (17-59); Albumin 3.3 g/dl (3.5-5.0); Alkaline Phosphatase 78 U/L (38-126); Blood Urea Nitrogen 50 mg/dl (9-20); Calcium 8.8 mg/dl (8.4-10.2); Carbon Dioxide 24 mmol/L (22-30); Chloride 106 mmol/L (98-107); Estimated Creatinine Clearance 39 ml/min; Glucose 107 mg/dl (70-99); Potassium 4.6 mmol/L (3.5-5.1); Sodium 140 mmol/L (135-145); Total Bilirubin 0.8 mg/dl (0.2-1.3); Total Protein 5.9 g/dl (6.3-8.2); eGFR 37.35
[2023-10-04 06:33] LABS: NT-proBNP 6350 pg/ml; Troponin I < 0.012 ng/ml
[2023-10-04] MEDS: LASIX 80 MG IV (07:05)
--- NOTE | 2023-10-04 07:24 | ED.GENMED ---
History of Present Illness
General
Chief Complaint: Breathing Problem
Source: patient and spouse
Exam Limitations: none
Time Seen by Provider: 10/04/23 05:59
Travel History
Have you had any contact with someone who has COVID-19?: No
Do you have any symptoms of coronavirus? Fever > 100 degrees, chills, cough, shortness of breath, sore throat, loss of taste or smell, muscle aches, or headache?: No
History of Present Illness
History of Present Illness:
This is an 83-year-old male who presents with shortness of breath. Patient admits orthopnea and dyspnea on exertion. Symptoms began much more severe this morning but a little bit yesterday. Patient Johanna was recently here and was given a blood
transfusion due to GI bleeding. He had an endoscopy and colonoscopy. The patient is not anticoagulated but does have a history of pulmonary embolism. He does admit to bilateral lower extremity swelling. Patient reports a history of CHF and he
monitors echocardiogram
Past History
Past History
ED Past Medical History: Arrthythmia (Atrial fibrillation), CHF, HTN, Hypercholesterolemia, Valvular disease (Aortic stenosis, aortic insufficiency) and Other (Pulmonary embolism, prostate cancer)
ED Past Surgical History: Cardiac (Ablation) and Urological (Prostatectomy, cardiac ablations)
Social History
Tobacco: Former smoker
Alcohol: Occasional
Personal: (Atrial fibrillation, prostatectomy for prostate cancer and )
Living: with family
Employment: Retired
Family History
Family History: Negative Diabetes, Hypertension or CAD
Phy Exam
Physical Exam
Physical Exam:
CONSTITUTIONAL Patient alert and oriented to person, place and time. Well-appearing. Vital signs reviewed.
HEAD atraumatic, normocephalic.
EYES eyelids normal to inspection, Extraocular muscles intact, Conjunctiva normal, Sclera normal.
NECK normal range of motion, Trachea midline, no jugular venous distention.
RESPIRATORY CHEST No respiratory distress noted, Chest expansion equal, diminished bilateral bases.
CARDIOVASCULAR regular rate and rhythm, 4 out of 6 systolic ejection murmur
ABDOMEN abdomen nontender, Bowel sounds normal. No distention.
BACK normal inspection, no obvious deformities
UPPER EXTREMITY range of motion normal, Motor strength normal, no cyanosis, no edema.
LOWER EXTREMITY range of motion normal, Motor strength normal, no cyanosis, bilateral edema.
NEURO Speech normal, No focal motor deficits, Lizandro coma scale 15, Memory normal, Cranial Nerves intact to screening exam.
SKIN skin warm, dry, and normal in color.
PSYCHIATRIC patient oriented to person place and time, Normal affect.
Scores
Heart Failure Risk
Heart Failure Risk Score: Not Applicable
Course
Orders/Labs/Results
Orders:
Orders
10/04/23 05:23
Electrocardiogram (*1) Urgent
Reason for Study: Other
Other Reason for Exam: Respiratory Distress
Cardiac Monitoring- Treatment ONCE
EKG- Treatment ONCE
IV Insert/Care/Rem.- Treatment PRN
CR Chest - 2 Views Urgent
Comment:
Reason For Exam: respiratory distress
10/04/23 05:51
Complete Blood Count/With Diff Urgent
Comprehensive Metabolic Panel Urgent
NT-proBNP Urgent
Reticulocyte Count Urgent
Troponin I Urgent
10/04/23 07:01
Furosemide [Lasix] 80 mg IV NOW STA
10/04/23 08:23
Admit/Transfer Patient As Directed
Co-Sign Provider:
Level of Care: Inpatient admission
Assign to:: Telemetry
Physician / Group: Hospitalist
Diagnosis: shortness of breath
Reason for Telemetry: Medication for Arrhythmia
Date to Stop Telemetry: 10/06/23
Time to Stop Telemetry: 11:00
Reason for Hospitalization: .
Expected length of stay greater than two midnights?: Yes
ELOS- Estimated Length of Stay in days: 3
I certify the patient meets the requirements for IP care: Yes
10/04/23 18:00
Rivaroxaban [Xarelto] 15 mg PO QPM
Abnormal Lab Results
10/04/23
05:51
RBC 2.68 L 10^6/uL
(4.70-6.10)
Hgb 7.9 L g/dL
(13.0-18.0)
Hct 23.9 L %
(39.0-52.0)
RDW 15.7 H %
(11.5-14.5)
MPV 11.3 H fL
(7.4-10.4)
Absolute Lymphs (auto) 0.3 L 10^3/uL
(1.2-3.4)
Neutrophils % 84.3 H %
(42.2-75.2)
Lymphocytes % 4.9 L %
(20.5-51.1)
BUN 50 H mg/dl
(9-20)
Creatinine 1.8 H mg/dL
(0.7-1.3)
Glucose 107 H mg/dl
(70-99)
Total Protein 5.9 L g/dl
(6.3-8.2)
Albumin 3.3 L g/dl
(3.5-5.0)
10/04/23 05:51
10/04/23 05:51
Vital Signs
Initial and Last Documented VS:
Initial Vital Signs
Temp Pulse Resp BP Pulse Ox
98.9 F 66 22 150/54 98
10/04/23 04:54 10/04/23 04:54 10/04/23 04:54 10/04/23 04:54 10/04/23 04:54
Last Documented Vital Signs
Temp Pulse Resp BP Pulse Ox
99.3 F 62 17 131/50 91
10/06/23 15:53 10/06/23 15:53 10/06/23 15:53 10/06/23 15:53 10/06/23 15:53
MDM/Problems Addressed
MDM/Problems Addressed:
CHF, anemia, chronic renal insufficiency
*Radiology
Radiology exam reviewed: preliminary read by ED provider (CHF)
*Pulse Oximetry
Patient hypoxic: yes
*EKG
Interpreted by ED Provider?: Yes
Interpretation: normal
Rhythm: ventricular paced
Ischemia: non-specific ST changes
*Wallet Assembler Interpretation
Rate: normal
Rhythm: ventricular paced
*Critical Care Note
Total Time (30-74mins, 75-104mins- exclusive of procedures): Not Applicable
Data Reviewed
Review of Other/Old Records Reveals: Testing (Echocardiogram reviewed from May 2023 showing ejection fraction of about 50%)
Source: patient and spouse
Further Testing Considered But Not Given:
Consider CTA in light of his history of PE but patient already anticoagulated
Patient Management
Discussion with other providers: Hospitalist
Escalation/DeEscalation of care consider admission/obs:
83-year-old with lower extremity swelling, CHF by chest x-ray and recent blood transfusion. IV diuretics. Admit
ED Attending Note
-
Portions of this chart may have been created with voice recognition software.� Occasional wrong word or��sound alike� substitutions may have occurred due to the inherent limitations of voice recognition software.
Discharge Plan
Departure
Patient Disposition: Admit
Date of Disposition: 10/04/23
Time of Disposition: 07:27
Admit to: Telemetry
Presentation/result/management discussed w/ accepting MD/DO: Hospitalist
Discharge Problem:
CHF (congestive heart failure), Anemia, Chronic kidney insufficiency, Aortic stenosis
Interventions
Interventions:
*General Assessment Last Done: 10/04/23 05:15
*Neglect/Abuse Screening Last Done: 10/04/23 04:54
ED- Fall Risk Assessment Last Done: 10/04/23 05:15
*Nursing Disposition Last Done: 10/04/23 09:28
ED- Cardiac Assessment Last Done: 10/04/23 05:15
ED- Pulmonary Assessment Last Done: 10/04/23 05:15
ED-Skin Assessment Last Done: 10/04/23 05:38
Discharge Date and Time
Discharge Date/Time: 10/04/23 09:29
--- NOTE | 2023-10-04 08:23 | HPS.HSE ---
Family Physician
-
Family Physician: Cas Forrest
Chief Complaint
-
Shortness of breath for a few days during
History of Present Illness
83 years old male presented with shortness of breath. Patient described his shortness of breath as exertional and associated with weakness. He denied chest pain or abdominal pain. He takes 80 mg Lasix daily with no interruption. He was recently
admitted to the hospital received 2 units of blood transfusion for anemia. He had gastrointestinal bleeding and GI workup showed diverticulosis, severe hemorrhoids. Patient also received intravenous iron. He takes Xarelto at home. Hemoglobin on
admission 7.9. Baseline hemoglobin around 8. No rectal bleeding at home creatinine 1.8 which is. Around his baseline. Patient denied kidney problem or kidney disease , he is noted to have abnormal kidney function since 2020.
Medical History
Past Medical History
Past Medical History: Reports Other ( Diverticulosis, hemorrhoids, essential hypertension, aortic stenosis, paroxysmal atrial fibrillation, history of PE, history of prostate cancer)
Past Surgical History: Reports Other (No recent major surgery)
Social History
Tobacco: Former Smoker
Alcohol: None
Drug: None
Personal:
Living: With Family
Employment: Retired
Family History
Family History: Not pertinent
Allergies / Home Medications
Allergies reflects when Allergies were last updated in [employer].
Home Medications with original date entered in [employer]
Allergy/Medication List:
Allergies
Allergy/AdvReac Type Severity Reaction Status Date / Time
lisinopril [Lisinopril] Allergy Intermediate cough Verified 10/04/23 04:58
sotalol [Sotalol] Allergy Intermediate bradycardia Verified 10/04/23 04:58
candesartan [Candesartan] Allergy Unknown PT UNAWARE Verified 10/04/23 04:58
of allergy
Home Medications
simvastatin 20 mg tablet 20 mg PO HS High Cholesterol 09/27/09
doxylamine succinate 25 mg tablet (Sleep Aid (doxylamine)) 25 mg PO HS sleep 06/08/17
furosemide 80 mg tablet 80 mg PO DAILY Fluid Retention/Swelling 06/08/17
carvedilol 3.125 mg tablet 6.25 mg PO BID Blood Pressure 09/22/17
amlodipine 10 mg tablet 10 mg PO DAILY Blood Pressure 09/27/23
ascorbic acid (vitamin C) 1,000 mg tablet (Vitamin C) 1,000 mg PO DAILY Supplement 09/27/23
calcium carbonate 600 mg-vitamin D3 10 mcg (400 unit) tablet (Calcium 600 + D(3)) 1 tab PO DAILY Supplement 09/27/23
irbesartan 150 mg tablet 150 mg PO DAILY Blood Pressure 09/27/23
rivaroxaban 15 mg tablet (Xarelto) 15 mg PO QPM Blood Clot Prevention/Tx 09/27/23
Review of Systems
-
History Source: Patient
A 12 point ROS was completed and negative except as noted: Yes
Constitutional: Denies Fever
EENT: Denies Sore Throat
Respiratory: Reports Cough (Dry) and Trouble Breathing
Cardiac: Denies Chest Pain
Abdomen/GI: Denies Abdominal Pain
: Denies Dysuria or Difficulty Voiding
Musculoskeletal: Reports Edema; Denies Joint Pain
Neurological: Reports Weakness; Denies Dizzy
Endocrine: Denies Temp Intolerance
Hematologic/Lymphatic: Denies Bruising
Psych: Denies Panic Disorder
Physical Exam
Vital Signs
Vital Signs
Temp Pulse Resp BP Pulse Ox
98.9 F 60 20 124/50 94
10/04/23 04:54 10/04/23 07:15 10/04/23 07:15 10/04/23 07:05 10/04/23 07:25
Physical Exam
General: No Apparent Distress, Comfortable and Appears Chronically Ill
HEENT: Moist mucous membranes and Atraumatic
Respiratory: Rales
Cardiac: S1/S2 and Murmur
GI: Soft, Non Tender and Non Distended
Rectal: No Maroon Stools
Genito-urinary: No costovertebral tender
Musculoskeletal: Edema, Left Lower Extremity and Edema, Right Lower Extremity
Skin: Warm; No Jaundice
Neuro: AO x 3 and No Motor Deficits; No Nonfocal/grossly intact, Slurred Speech or Facial Droop
Psych: Calm and Intact Judgment/Insight
Laboratory Results
-
10/04/23 05:51
10/04/23 05:51
Laboratory Results
Total Bilirubin 0.8 mg/dl (0.2-1.3) 10/04/23 05:51
AST 26 U/L (17-59) 10/04/23 05:51
ALT 19 U/L (0-50) 10/04/23 05:51
Alkaline Phosphatase 78 U/L (38-126) 10/04/23 05:51
Troponin I < 0.012 ng/ml 10/04/23 05:51
Impression/Plan
-
83 years old male presented with shortness of breath and was found to have congestive heart.
#Acute on chronic heart failure with reduced ejection fraction around 50%. Known to have stage II diastolic dysfunction also
Status post intravenous furosemide 80 mg in the ER. Will change Lasix to 40 mg twice daily.
Negative troponin.
Monitor renal function, electrolyte, weight and input/output
Continue with carvedilol but add holding parameters
Hold amlodipine and irbesartan to allow use of aggressive diuretic therapy for now\\
He sees Dr Knight.
Appreciate cardiology input
# Valvular heart disease
History of mild mitral stenosis, moderate mitral regurgitation, moderate aortic regurgitation, moderate to severe aortic stenosis with LVOT of 2.0 cm/valve area is 0.9 cm2. Mild tricuspid regurgitation with trace pulmonic regurgitation
# Chronic blood loss anemia/ �heme positive stool/acute blood loss anemia is related to/associated with/due to/exacerbated by Xarelto
- s/p 2 units and Hb around 8
- anemia workup shows iron deficiency; IV iron was given, will finish the course in the hospital
-Already on Xarelto
-Status post upper and lower endoscopic evaluation that showed diverticulosis, severe hemorrhoids and small polyps
Patient reported an appointment with hematology for erythropoietin injection
Appreciate hematology input
# Chronic kidney disease stage IIIb
Creatinine stable at baseline
Monitor while on diuretic
Cruciate nephrology input
Essential HTN
- hold ARB/CCB
HLD - statin
hx of parox Afib
- c/w Xarelto
hx of PE
hx of prostate Cancer
Total time spent to see the patient, examine the patient on the floor, review data and lab results, discuss treatment plan with patient, nursing staff, ER doctor around 75 minutes
--- NOTE | 2023-10-04 09:50 | PTCARENOTE ---
Received pt from ER.Pt awake alert and oriented x3. Pt has no c/o pain at this time. Over the past couple of days patient has been experiencing pain with putting weight on Left foot and knee, no pain at rest, Due to this pt pulled over from
stretcher. Pt VSS 95% on 2L.Pt Vpaced on tele. Pt oriented to room call adkins within reach, plan of care ongoing
--- NOTE | 2023-10-04 10:27 | CON.CAR ---
Addendum entered and electronically signed by Adan Velasquez MD 10/04/23 13:04:
I saw and examined the patient.
The JUMPBASTING COLLAR BASTER or PA's note was reviewed and I agree with the note.
Comment: General: Well developed, well nourished in NAD.
Neck: Supple, no JVD, HJR, carotids +2 B/L, no bruits bilaterally.
Heart: Non displaced PMI, RRR, 2/6 basal systolic murmur, No S3, S4, no rubs.
Lungs: Scattered rhonchi
Extremities: No clubbing, cyanosis or edema bilaterally.
Neuro: Grossly nonfocal, awake, alert and oriented x3.
Baldomero has a history of A-fib status post PVI in 2008 and 2009 on chronic Xarelto, complete heart block status post Medtronic pacer in 2016, pulmonary embolus in 2012, hypertension, CKD 3b, moderate to severe aortic stenosis, moderate aortic
insufficiency, moderate MR. He presents with worsening shortness of breath, weight gain, lower extremity edema. He is admitted for acute diastolic CHF. He feels better since admission. He remains on 2 L of oxygen.
Will continue to diurese with IV Lasix. Will check echocardiogram. Discussed with patient and family at bedside. Nephrology will help with management of diuretics with creatinine of 1.8. Hematology evaluating anemia.
Original Note:
Consultation
Consultation Request
Date/Time Consultation Requested: 10/04/2023
Date/Time Consultation Performed: 10/04/2023 at 1030
Requesting Provider: Dr. Dockery
Performing Provider: Dr. Velasquez
Reason for Consultation: CHF
Medical History
-
History of Present Illness:
HPI: Romaine is an 83 year old male with PMH of paroxysmal atrial fibrillation, PPM, PE, , and nonobstructive CAD who presented to [facility] for evaluation of worsening SOB. He was recently admitted at with anemia and received 2 units PRBCs. He
states with this he noted gradual weight gain and increased LE edema. Then over the past few days he had worsening SOB and this AM his symptoms significantly worsened and he came to ER for evaluation. On arrival, he was noted to have evidence of
acute heart failure on exam with CXR noting pulmonary edema with proBNP 6350. He was also hypoxic and placed on 2L NC. He was started on IV lasix and has had good urine output. He takes lasix 80mg daily at home and reports he has been compliant. He
also notes his weight is up from his recent baseline. He reports he fell down the stairs in 06/2023 and afterwards had diminished appetite, with his weight dropping to approximately 205-206lbs. Since his last admission, his weight has been slowly
creeping back up. At this time, he reports he is feeling well overall and his SOB is improving. Still has significant LE edema.
PMH:
Paroxysmal atrial fibrillation
s/p PVI 07/18/2009
s/p redo PVI 06/26/2010
Chronic Xarelto anticoagulation
Complete heart block s/p Medtronic Micra PPM 06/09/2017
h/o B/L PE 12/2012
HTN
HLD
CKD 3b
Iron deficiency anemia
Mod-Severe
Mod AI
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
Past Medical History
Past Medical History: Other (In HPI)
Past Surgical History: Cardiac (s/p PVI 2008, 2009, s/p PPM 05/2017), Tonsilectomy and Other (prostatectomy, L knee surgery, R shoulder surgery)
Social History
Tobacco: Former Smoker
Alcohol: None
Drug: None
Personal:
Living: With Family
Employment: Retired
Family History
Family History: Reviewed & Not Pertinent
Allergies / Home Medications
Allergy/AdvReac Type Severity Reaction Status Date / Time
lisinopril [Lisinopril] Allergy Intermediate cough Verified 10/04/23 04:58
sotalol [Sotalol] Allergy Intermediate bradycardia Verified 10/04/23 04:58
candesartan [Candesartan] Allergy Unknown PT UNAWARE Verified 10/04/23 04:58
of allergy
Medication Instructions Recorded Confirmed Type
simvastatin 20 mg tablet 20 mg PO HS High Cholesterol 09/27/09 10/04/23 History
doxylamine succinate 25 mg tablet 25 mg PO HS sleep 06/08/17 10/04/23 History
(Sleep Aid (doxylamine))
furosemide 80 mg tablet 80 mg PO DAILY Fluid 06/08/17 10/04/23 History
Retention/Swelling
carvedilol 3.125 mg tablet 6.25 mg PO BID Blood Pressure 09/22/17 10/04/23 History
amlodipine 10 mg tablet 10 mg PO DAILY Blood Pressure 09/27/23 10/04/23 History
ascorbic acid (vitamin C) 1,000 mg 1,000 mg PO DAILY Supplement 09/27/23 10/04/23 History
tablet (Vitamin C)
calcium carbonate 600 mg-vitamin 1 tab PO DAILY Supplement 09/27/23 10/04/23 History
D3 10 mcg (400 unit) tablet
(Calcium 600 + D(3))
irbesartan 150 mg tablet 150 mg PO DAILY Blood Pressure 09/27/23 10/04/23 History
rivaroxaban 15 mg tablet (Xarelto) 15 mg PO QPM Blood Clot 09/27/23 10/04/23 History
Prevention/Tx
Review of Systems
-
History Source: Patient and Family ( at bedside)
All other systems: Negative unless noted
Physical Exam
Vital Signs
Temp Pulse Resp BP Pulse Ox
98 F 68 18 133/43 95
10/04/23 09:50 10/04/23 09:50 10/04/23 09:50 10/04/23 09:50 10/04/23 09:50
Lab Results
10/04/23 05:51
10/04/23 05:51
Troponin I < 0.012 ng/ml 10/04/23 05:51
Rhi-K-Zojdeckgdue Pept 6350 pg/ml 10/04/23 05:51
Physical Exam
General: Well Developed, Well Nourished and No Apparent Distress
HEENT: Normocephalic, Anicteric and Moist Mucous Membranes
Respiratory: Crackles and Non Labored Respirations
Cardiac: S1/S2, Regular Rhythm and Murmur
GI: Soft, Non Tender, Non Distended and Normal Bowel Sounds
Musculoskeletal: No Clubbing, No Cyanosis and Edema
Skin: Warm and Dry
Neuro: AO x 3 and Nonfocal/Grossly Intact
Psych: Calm
Impression / Plan
-
PCP: Dr. Forrest
Basket Filler: Dr. Knight
Impression:
Presented with SOB
Recent admission 09/27 - 09/29/2023 for anemia, GIB
Acute hypoxic respiratory insufficiency
Acute HFpEF
CKD 3b
Iron deficiency anemia
Paroxysmal atrial fibrillation
s/p PVI 07/18/2009
s/p redo PVI 06/26/2010
Chronic Xarelto anticoagulation
Complete heart block s/p Medtronic Micra PPM 06/09/2017
h/o B/L PE 12/2012
HTN
HLD
Mod-Severe
Mod AI
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
Echo 05/31/2023: EF 50-55%, mild cLVH, stage II diastolic dysfunction, mild MS with peak/mean gradients 17/6 mmHg, moderate MR, moderate-severe w/ peak/mean gradients 43-28 mmHg, SHELLEY 0.9 cm2, moderate AI, mild TR, estimated PAP 35 mmHg
Echo 10/04/2023: Study pending
Plan:
-Presented with weight gain, edema, and SOB. In acute heart failure on arrival with proBNP 6350.
-Continue IV lasix 40mg BID. As OP is on lasix 80mg daily.
-Creat 1.8, appears to be near recent baseline. Follow with diuresis. Nephrology consulted by primary service
-Weight up to 229 lbs. Follow daily weights, I&Os.
-CHF education
-Hgb 7.9, recently admitted with anemia and GIB. Hematology following.
-Xarelto 15mg daily restarted for history of afib and PE.
-HR and BP stable on coreg 6.25mg BID. As OP is also on irbesartan and amlodipine. On hold currently.
-Most recent echo 05/2023 with EF 50-55% adn moderate-severe . Repeat while admitted to reassess.
-On 2L NC. Wean as able.
HPI: Romaine is an 83 year old male with PMH of paroxysmal atrial fibrillation, PPM, PE, , and nonobstructive CAD who presented to [facility] for evaluation of worsening SOB. He was recently admitted at with anemia and received 2 units PRBCs. He
states with this he noted gradual weight gain and increased LE edema. Then over the past few days he had worsening SOB and this AM his symptoms significantly worsened and he came to ER for evaluation. On arrival, he was noted to have evidence of
acute heart failure on exam with CXR noting pulmonary edema with proBNP 6350. He was also hypoxic and placed on 2L NC. He was started on IV lasix and has had good urine output. He takes lasix 80mg daily at home and reports he has been compliant. He
also notes his weight is up from his recent baseline. He reports he fell down the stairs in 06/2023 and afterwards had diminished appetite, with his weight dropping to approximately 205-206lbs. Since his last admission, his weight has been slowly
creeping back up. At this time, he reports he is feeling well overall and his SOB is improving. Still has significant LE edema.
Data Reviewed
-
EKG: Tracing Personally Visualized and interpreted
Radiology: Report Reviewed by me
Labs: Labs Reviewed by me
Old Records: Reviewed
--- NOTE | 2023-10-04 11:04 | CON.ONC ---
Addendum entered and electronically signed by Lida Love DO 10/04/23 16:10:
I saw and examined the patient.
The BARREL STRAIGHTENER or PA's note was reviewed and I agree with the note.
Comment: Pt is a 83 yo M that recently underwent work-up for symptomatic FRANDY with heme positive stools. GI eval for EGD, colonoscopy was unremarkable. He received IV iron on recent admission and was scheduled to see hematology on 10/06 for ongoing
anemia management. He was re-admitted with SOB, weakness w/ c/f CHF exacerbation. hgb on presentation 7.9 g/dl. Denies obvious melena, BRBPR.
Pertinent labs reviewed.
A/P:
# Symptomatic normocytic anemia: prior work-up consistent with FRANDY. normal B12, folate, TSH. SPEP negative for m-spike, ordered serum free light chains however UPEP, urine free light chains unremarkable. Element of CKD may be contributing to anemia.
repeat iron studies and administer additional IV iron if ferritin < 250 ng/ml, IS < 25%. WIll reassess hgb after adequate iron repletion and consider role for epo agonist if hgb remains < 10.0 g/dl.
- will need to weigh risks and benefits of Xarelto if ongoing anemia and concern for active occult GI losses. Continue for now.
Original Note:
Impression
Impression
Acute on chronic anemia
Recent GIB s/p 2units PRBCs
Chronic anticoagulation (Xarelto)
Iron deficiency
CKD3b
Hx prostate cancer
Hx PE
Plan
Plan
10/04 Hgb 7.9, Hct 23.9
Transfuse as needed to maintain Hgb >7
CBC w/ diff daily
Continue IV iron
B12 and folic acid supplement daily
Epo level and additional labs pending
Nephrology consult
Hematest stools
Patient was scheduled to follow up with [place] this Wednesday, 10/06, to discuss erythropoietin support and continue IV iron infusions. Office has been notified of patient's hospital admission. We will reschedule accordingly.
Patient History
History of Present Illness
Romaine Hernández is an 83 year old male who presented to the ER this morning with complaints of shortness of breath and weakness. He was recently admitted on 09/27 for symptomatic anemia with Hgb of 6.6 and heme-positive stools. He underwent EGD which was
normal and colonoscopy which was also unremarkable. Xarelto was held for procedures and resumed 09/30. He is managed on chronic Lasix which he is compliant with. He noticed worsening swelling in bilateral feet causing difficulty with ambulation. He
was scheduled to consult with [place] this Wednesday for further discussion of anemia and iron deficiency. He was noted to be hypoxic in the ER and admitted for further evaluation.
Past-Medical/Surgical History
Symptomatic anemia
Iron deficiency
Aortic stenosis
Atrial fibrillation
Hypertension
Hyperlipidemia
Hx PE on Xarelto (2012)
Hx Prostate cancer s/p prostatectomy
Complete heart block s/p PPM (2016)
Patient Medication
Medication Instructions Recorded Confirmed Last Taken Type
simvastatin 20 mg tablet 20 mg PO HS High Cholesterol 09/27/09 10/04/23 10/03/23 History
doxylamine succinate 25 mg tablet 25 mg PO HS sleep 06/08/17 10/04/23 10/03/23 History
(Sleep Aid (doxylamine))
furosemide 80 mg tablet 80 mg PO DAILY Fluid 06/08/17 10/04/23 10/03/23 History
Retention/Swelling
carvedilol 3.125 mg tablet 6.25 mg PO BID Blood Pressure 09/22/17 10/04/23 10/03/23 History
amlodipine 10 mg tablet 10 mg PO DAILY Blood Pressure 09/27/23 10/04/23 10/03/23 History
ascorbic acid (vitamin C) 1,000 mg 1,000 mg PO DAILY Supplement 09/27/23 10/04/23 10/03/23 History
tablet (Vitamin C)
calcium carbonate 600 mg-vitamin 1 tab PO DAILY Supplement 09/27/23 10/04/23 10/03/23 History
D3 10 mcg (400 unit) tablet
(Calcium 600 + D(3))
irbesartan 150 mg tablet 150 mg PO DAILY Blood Pressure 09/27/23 10/04/23 10/03/23 History
rivaroxaban 15 mg tablet (Xarelto) 15 mg PO QPM Blood Clot 09/27/23 10/04/23 10/03/23 History
Prevention/Tx
Active Medications
Generic Name Dose Route Start Last Admin
Trade Name Freq PRN Reason Stop Dose Admin
Carvedilol 6.25 mg 10/04/23 20:00
Carvedilol 6.25 Mg Tablet PO 11/01/23 19:59
BID YULI
Furosemide 40 mg 10/04/23 16:00
Furosemide 40 Mg (10 Mg/Ml) 4 Ml Vial IV 11/01/23 15:59
BID AT 0800,1600 YULI
Rivaroxaban 15 mg 10/04/23 18:00
Rivaroxaban 15 Mg Tablet PO 11/01/23 17:59
QPM YULI
Sodium Chloride 0 flush 10/04/23 10:00
Sodium Chloride 0.9% (Flush) Syringe IV 11/01/23 09:59
PER PROTOCOL YULI
Review of Systems
-
History Source: Patient, Family and Coordinated Provider
Constitutional: Reports Fatigue and Weakness; Denies Fever or Chills
EENT: Reports No Symptoms
Respiratory: Reports Trouble Breathing
Cardiac: Reports No Symptoms
GI: Reports No Symptoms
Breast: Reports N/A
: Reports No Symptoms
Musculoskeletal: Reports Muscle Pain, Muscle Stiffness and Edema
Skin: Reports No Symptoms
Neuro: Reports Weakness
Endocrine: Reports No Symptoms
Hematologic/Lymphatic: Reports No Symptoms
Allergy / Immunology: Reports No Symptoms
Psych: Reports No Symptoms
Physical Exam
-
Patient resting comfortably in bed. family at bedside. his biggest complaint is pedal edema and weakness.
General: Well Developed, Well Nourished, Comfortable and Conversant; Negative Pain, Fever or Chills
HEENT: Negative Jaundice
Cardiology: S1, S2 and Murmur
Pulmonary: Other (crackles)
GI: Normal Bowel Sounds
Genito-Urinary: Deferred by me
Musculoskeletal: Edema, Right Lower Extrem (+3 pedal edema) and Edema, Left Lower Extrem
Extremities: Pulses Present and Edema
Neurology: Non Focal
Skin: Warm, Dry and Other (pallor)
Psych: Calm
Labs
Lab Results
WBC 6.7 10^3/uL (4.8-10.8) 10/04/23 05:51
RBC 2.68 10^6/uL (4.70-6.10) L 10/04/23 05:51
Hgb 7.9 g/dL (13.0-18.0) L 10/04/23 05:51
Hct 23.9 % (39.0-52.0) L 10/04/23 05:51
MCV 89.2 fL (80.0-94.0) 10/04/23 05:51
MCH 29.5 pg (27.0-31.0) 10/04/23 05:51
MCHC 33.1 g/dL (33.0-37.0) 10/04/23 05:51
RDW 15.7 % (11.5-14.5) H 10/04/23 05:51
Plt Count 209 10^3/uL (130-400) 10/04/23 05:51
MPV 11.3 fL (7.4-10.4) H 10/04/23 05:51
Abs Immat Gran (auto) 0.0 10^3/uL (0-0.05) 10/04/23 05:51
Absolute Neuts (auto) 5.6 10^3/uL (1.4-6.5) 10/04/23 05:51
Absolute Lymphs (auto) 0.3 10^3/uL (1.2-3.4) L 10/04/23 05:51
Absolute Monos (auto) 0.6 10^3/uL (0.1-0.6) 10/04/23 05:51
Absolute Eos (auto) 0.1 10^3/uL (0-0.7) 10/04/23 05:51
Absolute Basos (auto) 0.0 10^3/uL (0-0.2) 10/04/23 05:51
Immature Gran % 0.4 % (0-0.5) 10/04/23 05:51
Neutrophils % 84.3 % (42.2-75.2) H 10/04/23 05:51
Lymphocytes % 4.9 % (20.5-51.1) L 10/04/23 05:51
Monocytes % 9.0 % (1.7-9.3) 10/04/23 05:51
Eosinophils % 1.3 % (0-6) 10/04/23 05:51
Basophils % 0.1 % (0-2) 10/04/23 05:51
Creatinine 1.8 mg/dL (0.7-1.3) H 10/04/23 05:51
Vital Signs
Vital Signs
Temp Pulse Resp BP Pulse Ox
98 F 68 18 133/43 95
10/04/23 09:50 10/04/23 09:50 10/04/23 09:50 10/04/23 09:50 10/04/23 09:50
[2023-10-04 11:21] LABS: Reticulocyte Count 1.3 % (0.4-2.8)
[2023-10-04 11:32] LABS: LDH 214 U/L (120-246)
[2023-10-04 12:39] LABS: Folate 7.1 ng/ml (2.76-20); Vitamin B12 400 pg/ml (239-931)
[2023-10-04] MEDS: FOLVITE 1 MG PO (13:06)
[2023-10-04] MEDS: VITAMIN B-12 1000 MCG PO (13:06)
[2023-10-04] MEDS: FERRLECIT 110 MG IV (14:11)
--- NOTE | 2023-10-04 14:35 | CON.MD ---
Consultation - Medical
-
IMP:
Acute on chronic heart failure p EF
Valvular heart disease
History of mild mitral stenosis, moderate mitral regurgitation, moderate aortic regurgitation, moderate to severe aortic stenosis with LVOT of 2.0 cm/valve area is 0.9 cm2.� Mild tricuspid regurgitation with trace pulmonic regurgitation
Chronic blood loss anemia-recent PRBC and neg EGD and C scope
Chronic kidney disease stage IIIb cr 1.5-1.7
Essential HTN
HLD
hx of parox Afib
hx of PE
hx of prostate Cancer
h/o PPM
PLan:
Recent admit with anemia from GIB s/p PRBC now returns with sob and CHF flare, pt was not following FR
CKD-cr 1.8 seem close to baseline 1.5-1.7
he felt to have cardiorenal etiology
cont IV lasix 40 BID, uptitrate as needed
maintain FR 48 ounces/day
anemia managed by heme on IV fe infusion
BP are stable, cont home meds holding ARB, CCB
echo pending today
fever-w/u per primary
d/w and daughter in detail
[id number]
[2023-10-04] MEDS: TYLENOL 1000 MG PO (16:06)
[2023-10-04] MEDS: LASIX 40 MG IV (16:07)
--- NOTE | 2023-10-04 16:15 | PTCARENOTE ---
Pt having increased SOB and fever of 101.2, pox 92% on 2L. Pt given IV lasix per orders, Tylenol initiated for fever, MD aware, blood cultures, flu and covid swab completed, Pts breathing improved when fever broke, now 99.5. HOB elevated, call adkins
within reach, family at bedside. Plan of care ongoing.
[2023-10-04 16:28] LABS: COVID-19 Antigen Negative (Negative)
[2023-10-04] MEDS: XARELTO 15 MG PO (18:23)
[2023-10-04 20:22] LABS: Urine Albumin Negative (Neg - Trace); Urine Bilirubin Negative (Negative); Urine Character Clear (Clear); Urine Color Yellow; Urine Glucose Negative (Negative); Urine Ketone Negative (Negative); Urine Leukocyte Negative (Negative); Urine Nitrite Negative (Negative); Urine Occult Blood Negative (Negative); Urine Specific Gravity 1.015 (<1.030); Urine Urobilinogen Negative (Neg - 1+)
[2023-10-04] MEDS: COREG PO (21:23)
[2023-10-05] VITALS (18 sets, daily range): BP systolic 105–155; BP diastolic 40–78; PULSE 2–65; BMI 31.3; BMI 30.3
[2023-10-05] MEDS: DUONEB 3 ML INH (03:36)
[2023-10-05] MEDS: LASIX 40 MG IV ×3 (03:41→15:28)
--- NOTE | 2023-10-05 04:17 | W.PN.UPDATE ---
Addendum entered and electronically signed by ERNIE Cervantes 10/05/23 07:04:
vicente updated on transfer and events.
Addendum entered and electronically signed by ERNIE Cervantes 10/05/23 04:44:
offered to call , vicente for update now. He said i can call in am.
on bipap he states he is feeing improved somewhat.
Original Note:
Update Note
Progress Note Update
344 called to bedside for resp distress.
PT admitted 10/04/23 for chF exacerbation. Receiving iv lasix.
Pt woke up and having increased WOB, tachypnea, crackles half way up, pulse ox mid/high 80s on 2L
Plan: duoneb, lasix 40, trial of bipap, repeat cxr
ABD noted to distended and mod firm. Pt does state he hasn't had BM for 5 days (jonas post colonoscopy last admit). Will add laxatives.
Pt voiding adequately post lasix. Bladder scan <50ml
Will transfer to imu for closer monitoring of resp status
[2023-10-05 04:22] LABS: % Basophils 0.2 % (0-2); % Eosinophils 0.2 % (0-6); % Immature Granulocytes 0.6 % (0-0.5); Absolute Immature Granulocytes 0.1 10^3/uL (0-0.05); Absolute Lymphocytes 0.6 10^3/uL (1.2-3.4); Absolute Neutrophils 6.6 10^3/uL (1.4-6.5); Hematocrit 24.9 % (39.0-52.0); Hemoglobin 8.1 g/dL (13.0-18.0); Mean Corp Hgb Conc. 32.5 g/dL (33.0-37.0); Mean Corpuscular Hgb 28.8 pg (27.0-31.0); Mean Corpuscular Volume 88.6 fL (80.0-94.0); Nucleated Red Blood Cells % 0 % (-); Platelet Count 205 10^3/uL (130-400); Red Blood Cell Count 2.81 10^6/uL (4.70-6.10); Red Cell Dist. Width 15.9 % (11.5-14.5); White Blood Cell Count 8.3 10^3/uL (4.8-10.8)
[2023-10-05 04:44] LABS: Magnesium 2.3 mg/dl (1.6-2.3)
[2023-10-05 04:45] LABS: Blood Urea Nitrogen 56 mg/dl (9-20); Calcium 8.8 mg/dl (8.4-10.2); Carbon Dioxide 20 mmol/L (22-30); Chloride 105 mmol/L (98-107); Estimated Creatinine Clearance 37 ml/min; Glucose 116 mg/dl (70-99); Potassium 4.6 mmol/L (3.5-5.1); Sodium 141 mmol/L (135-145)
--- NOTE | 2023-10-05 05:00 | PTCARENOTE ---
Around 0315 patient complaining of shortness of breath. His oxygen saturation on 2l was 84, turned up to 4l and it remained 84%, increased to 6l and his saturation was 86-88%. Breath sounds with crackles throughout and expiratory wheezes.
Respiratory rate 26-32. Respiratory therapist in to give a treatment. RECORD PRESS TENDER notified of patients respiratory status, she came to see and examine . Lasix IV was ordered. Bipap ordered 07/20 with 10 liters of oxygen. Patient saturating 95%. His
respiratory rate 22 after bipap applied. . Portable chest x-ray taken and bloods drawn as ordered. Patient to be transferred to IMU. Report called to Luc. Patient transferred to room 3372 at 0500.
--- NOTE | 2023-10-05 05:30 | PTCARENOTE ---
Received pt from [facility] RN via bed tsx. Pt on Bipap tolerating settings and satting at 94% pulse ox. On auscultation pt lungs sound diminished TO. Pt is A&Ox3, can move all 4 extremities, and can make needs known. Pt is V-paced on tele monitor, has
+ pedal pulses, and +2 pitting edema B/L lower extremities. Pt's abdomen is round w/ active BS. Skin is C/D/I. Pt denies pain.
--- NOTE | 2023-10-05 06:30 | W.PN.HOSP.TC ---
Today's Communication/Plan
-
.
Assessment / Plan
Assessment / Plan
Physical Exam
General: No Apparent Distress, Comfortable and Appears Chronically Ill
HEENT: Moist mucous membranes and Atraumatic
Respiratory: Rales
Cardiac: S1/S2 and Murmur
GI: Soft, Non Tender and Non Distended
Rectal: No Maroon Stools
Genito-urinary: No costovertebral tender
Musculoskeletal: Edema, Left Lower Extremity and Edema, Right Lower Extremity
Skin: Warm; No Jaundice
Neuro: AO x 3 and No Motor Deficits; No Nonfocal/grossly intact, Slurred Speech or Facial Droop
Psych: Calm and Intact Judgment/Insight
83 years old male presented with shortness of breath and was found to have congestive heart.
# Fever
possible PNA
Negative COVID and flu
Blood cultures on 10/04
Urine not c/w UTI
No abd pain
Hypoxia noted with sob
will treat as PNA. Chest x ray c/w CHF , can consider CT chest
Appreciate pulmonary and ID help
# Acute hypoxic respiratory failure requiring noninvasive ventilatory with BiPAP
Continue to wean BiPAP, transition to nasal cannula as tolerated.
Component of congestive heart failure/valvular heart disease with ongoing fever to rule out possible pneumonia. Empiric Rocephin.
Appreciate pulmonary input
#Acute on chronic heart failure with reduced ejection fraction around 50%.� Known to have stage II diastolic dysfunction also
c/w Lasix to 40 mg twice daily.
Negative troponin.
Monitor renal function, electrolyte, weight and input/output
Continue with carvedilol but added holding parameters
Hold amlodipine and irbesartan to allow use of aggressive diuretic therapy for now
He sees Dr Knight.
Echocardiogram 10/04/23 showed left ventricular ejection fraction 57%, mild to moderate MR, moderate to severe aortic stenosis with some progression. Estimated pulmonary artery pressure 56 mmHg.
Appreciate cardiology input
# Constipation
c/w bowel regimen. No abd pain. No abd tenderness on exam.
# Valvular heart disease
Some progression of aortic disease noted on echocardiogram 10/04/23.
History of mild mitral stenosis, moderate mitral regurgitation, moderate aortic regurgitation, moderate to severe aortic stenosis with LVOT of 2.0 cm/valve area is 0.9 cm2.� Mild tricuspid regurgitation with trace pulmonic regurgitation
# Chronic blood loss anemia/ �heme positive stool/acute blood loss anemia is related to/associated with/due to/exacerbated by Xarelto
- s/p 2 units and Hb around� 8
- anemia workup shows iron deficiency; IV iron was given, will finish the course in the hospital
-Already on Xarelto
-Status post upper and lower endoscopic evaluation that showed diverticulosis, severe hemorrhoids and small polyps
Patient reported an appointment with hematology for erythropoietin injection
Appreciate hematology input
# Chronic kidney disease stage IIIb
Creatinine stable at baseline
Monitor while on diuretic
Appeciate nephrology input
Essential HTN
- hold ARB/CCB
HLD - statin
hx of parox Afib
- c/w� Xarelto
hx of PE
hx of prostate Cancer
Total time spent to see the patient, examine the patient on the floor, review data and lab results, discuss treatment plan with patient, nursing staff around 55 minutes
Anticipated Discharge: > 48 hours
Subjective/Interval History
-
Date of Service: October 05, 2023
He feels better this morning
ON BiPAP last night
Objective Data
-
Labs:
Laboratory Results
10/05/23
04:14
WBC 8.3
Hgb 8.1 L
Hct 24.9 L
Plt Count 205
Sodium 141
Potassium 4.6
Chloride 105
Carbon Dioxide 20 L
BUN 56 H
Creatinine 1.9 H
Glucose 116 H
Calcium 8.8
Vital Signs:
Vital Signs
Temp Pulse Resp BP Pulse Ox
101.0 F H 60 20 110/43 95
10/05/23 05:23 10/05/23 06:15 10/05/23 06:15 10/05/23 06:15 10/05/23 06:15
I&O
10/03/23 10/04/23 10/05/23
06:59 06:59 06:59
Intake Total 840 / 840
Output Total 2150 / 2150
Balance -1310 / -1310
--- NOTE | 2023-10-05 08:41 | W.PN.CARDCBS ---
Today's Communication / Plan
-
Cont IV lasix diuresis. His wt continues to come down.
Nephrology to eval as pt has acute on chronic RF.
Echo reviewed with pt. Discussed further eval of given increase in AV gradients in setting of HF, inpt vs outpt pending clinically course.
Remains on Xarelto 15 mg for hx of Afib and PE.
Remains on Coreg.
Amlodipine and irbesartan on hold.
Hematology evaluating anemia
Reviewed with nursing.
Impression / Plan
-
.
PCP: Dr. Forrest
Food Production Supervisor: Dr. Knight
Impression:
Presented with SOB
Recent admission 09/27 - 09/29/2023 for anemia, GIB
Acute hypoxic respiratory insufficiency
Acute HFpEF
Acute on chronic RI, CKD 3b
Iron deficiency anemia
Paroxysmal atrial fibrillation
s/p PVI 07/18/2009
s/p redo PVI 06/26/2010
Chronic Xarelto anticoagulation
Complete heart block s/p Medtronic Micra PPM 06/09/2017
h/o B/L PE 12/2012
HTN
HLD
Mod-Severe
Mod AI
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
Echo 05/31/2023: EF 50-55%, mild cLVH, stage II diastolic dysfunction, mild MS with peak/mean gradients 17/6 mmHg, moderate MR, moderate-severe w/ peak/mean gradients 43-28 mmHg, SHELLEY 0.9 cm2, moderate AI, mild TR, estimated PAP 35 mmHg
Echo 10/04/2023: EF 57%, mild to mod MR, mod to severe with peak/mean AV grad 79/45 mmHg, the SHELLEY 1.1 cm2.� Mild to mod AR, mild to mod TR, PASP 56 mmHg, pleural effusion, dilated IVC
�Mild to moderate tricuspid regurgitation. Estimated pulmonary artery pressure
�
Plan:
Cont IV lasix diuresis. His wt continues to come down.
Nephrology to eval as pt has acute on chronic RF.
Echo reviewed with pt. Discussed further eval of given increase in AV gradients in setting of HF, inpt vs outpt pending clinically course.
Remains on Xarelto 15 mg for hx of Afib and PE.
Remains on Coreg.
Amlodipine and irbesartan on hold.
Hematology evaluating anemia
Reviewed with nursing.
Additional hx: Baldomero has a history of A-fib status post PVI in 2008 and 2009 on chronic Xarelto, complete heart block status post Medtronic pacer in 2016, pulmonary embolus in 2012, hypertension, CKD 3b, moderate to severe aortic stenosis, moderate
aortic insufficiency, moderate MR.� He presents with worsening shortness of breath, weight gain, lower extremity edema.� He is admitted for acute diastolic CHF.� He feels better since admission.� He remains on 2 L of oxygen.
HPI: Romaine is an 83 year old male with PMH of paroxysmal atrial fibrillation, PPM, PE, , and nonobstructive CAD who presented to [facility] for evaluation of worsening SOB. He was recently admitted at with anemia and received 2 units PRBCs. He
states with this he noted gradual weight gain and increased LE edema. Then over the past few days he had worsening SOB and this AM his symptoms significantly worsened and he came to ER for evaluation. On arrival, he was noted to have evidence of
acute heart failure on exam with CXR noting pulmonary edema with proBNP 6350. He was also hypoxic and placed on 2L NC. He was started on IV lasix and has had good urine output. He takes lasix 80mg daily at home and reports he has been compliant. He
also notes his weight is up from his recent baseline. He reports he fell down the stairs in 06/2023 and afterwards had diminished appetite, with his weight dropping to approximately 205-206lbs. Since his last admission, his weight has been slowly
creeping back up. At this time, he reports he is feeling well overall and his SOB is improving. Still has significant LE edema.
Progress Note - Food Production Supervisor
Subjective
Date of Service: October 05, 2023
Pt seen and examined. No complaints. No chest pain or shortness of breath.
Objective
Labs:
10/05/23 04:14
10/05/23 04:14
Labs
Hgb 8.1 g/dL (13.0-18.0) L 10/05/23 04:14
Hct 24.9 % (39.0-52.0) L 10/05/23 04:14
Plt Count 205 10^3/uL (130-400) 10/05/23 04:14
Sodium 141 mmol/L (135-145) 10/05/23 04:14
Potassium 4.6 mmol/L (3.5-5.1) 10/05/23 04:14
BUN 56 mg/dl (9-20) H 10/05/23 04:14
Creatinine 1.9 mg/dL (0.7-1.3) H 10/05/23 04:14
Glucose 116 mg/dl (70-99) H 10/05/23 04:14
Troponins
10/04/23
05:51
Troponin I < 0.012
Vital Signs and I&O:
Vital Signs
Temp Pulse Resp BP Pulse Ox
101.0 F H 60 20 110/43 95
10/05/23 05:23 10/05/23 06:15 10/05/23 06:15 10/05/23 06:15 10/05/23 06:15
Vital Signs
Temp Pulse Resp BP Pulse Ox
101.0 F H 60 20 110/43 95
10/05/23 05:23 10/05/23 06:15 10/05/23 06:15 10/05/23 06:15 10/05/23 06:15
Intake & Output
10/03/23 10/04/23 10/05/23 10/06/23
06:59 06:59 06:59 06:59
Intake Total 840 / 840
Output Total 2149 / 2149
Balance -1310 / -1310
Physical Exam
Physical Exam
General: No acute distress, AAOX3
Neck: Negative JVD
Heart: Regular, Negative S3 positive S1/S2, Negative S4, OSIEL
Lungs: CTA b/l, negative wheezes/rales/rhonchi
Abd: Positive BS, NT/ND, neg rebound/rigidity/guarding
Ext: Negative cyanosis/clubbing/edema
Neuro: nonfocal
[2023-10-05] MEDS: STERILE WATER FOR INJECTION 10 ML IV (08:58)
[2023-10-05] MEDS: ROCEPHIN 1000 MG IV (08:58)
[2023-10-05] MEDS: VITAMIN B-12 1000 MCG PO (08:59)
[2023-10-05] MEDS: COREG 6.25 MG PO ×2 (08:59→19:38)
[2023-10-05] MEDS: FOLVITE 1 MG PO (08:59)
[2023-10-05] MEDS: MIRALAX 17 GRAMS PO (09:00)
--- NOTE | 2023-10-05 09:44 | PN.CDI ---
Addendum entered and electronically signed by Josep Dockery MD 10/05/23 09:57:
'Acute on chronic heart failure with reduced ejection fraction
Original Note:
CDI
- -
CDI:
Physician Documentation Request
Admit Date: 10/04/23 08:33
Dear Doctor Sarkis,
Patient admitted for acute heart failure.
10/04 Echo Report: 'Left ventricular ejection fraction is 57%.'
10/04 Cardiology consult: 'Acute HFpEF'
10/05 Hospitalist PN: 'Acute on chronic heart failure with reduced ejection fraction around 50%.'
Due to conflicting documentation, please provide further specificity regarding the most likely type of CHF you are evaluating, treating or monitoring.
Heart Failure with preserved EF
Heart Failure with reduced EF
Other
Use of terms such as suspected, likely, concern for, or probable (associated with a specific diagnosis that is being evaluated, monitored, or treated as if it exists) are acceptable and can be coded in the inpatient setting, when documented at the
time of discharge.
Thank you,
Carolyn Sams RN, BSN
CDI Specialist
Available via [place] text
Please use your independent medical judgment in providing your response.
--- NOTE | 2023-10-05 10:36 | CON.INTV ---
Consultation
Consultation Request
Date/Time Consultation Requested: 10/05
Date/Time Consultation Performed: 10/05
Reason for Consultation: Hypoxia
Medical History
-
History of Present Illness:
History obtained from the chart, patient, family members and reviewing outpatient records. 83-year-old pleasant male with history of valvular disease, chronic atrial fibrillation on anticoagulation, with recent hospital stay early September,
discharged 09/29/2023. At that time he underwent endoscopy, colonoscopy due to anemia, hemoglobin 6.6. He required 2 units of blood, workup revealed diverticulosis, resected polyps and hemorrhoids. He also received IV iron. He was discharged,
feeling better but then returned 10/04/2023 because of worsening shortness of breath. He had woken up in the middle the night acutely short of breath. He denied chest pain, lightheadedness, dizziness, cough, hemoptysis. He did admit to worsening
lower extremity swelling on further evaluation appears to have gained about 10 pounds. Upon arrival to [facility], was afebrile, pulse 66, breathing at 22, blood pressure 150/54, 98%. Patient was admitted for suspected heart failure and
renal insufficiency, creatinine noted to be 1.8. Hemoglobin was 7.9. Hospital course reviewed. Patient developed worsening hypoxia requiring noninvasive ventilation, transferred to higher level of care. We are asked to help from pulmonary
standpoint 10/05/2023
With diuresis, patient feels breathing has improved about 40%. He did tolerate BiPAP
Family admits to history of snoring. Patient had a fall back in June where he tripped, and hit his head.
.
PMH: History of symptomatic anemia secondary to GI bleed requiring transfusion, history of pulm hypertension, chronic kidney disease, heart failure, aortic stenosis, mitral regurgitation, hypertension, atrial fibrillation on anticoagulation with
multiple ablation/PVI in the past , hyperlipidemia, prostate cancer with prostatectomy 2004, history of PE 2012. History of right shoulder surgery 1979, left knee surgery 1972
Past Medical History
Past Medical History: None (See above)
Past Surgical History: None (See above)
Social History
Tobacco: Former Smoker ([id number], quit )
Alcohol: None
Drug: None
Personal:
Living: With Family
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
Family History
Family History: Other (1 sibling from motor vehicle accident, another sibling from HIV/AIDS in the third decade. Son with testicular cancer. Family history negative for blood clots)
Allergies / Home Medications
Allergies
Allergy/AdvReac Type Severity Reaction Status Date / Time
lisinopril [Lisinopril] Allergy Intermediate cough Verified 10/04/23 04:58
sotalol [Sotalol] Allergy Intermediate bradycardia Verified 10/04/23 04:58
candesartan [Candesartan] Allergy Unknown PT UNAWARE Verified 10/04/23 04:58
of allergy
Home Medications
Medication Instructions Recorded Confirmed Last Taken Type
simvastatin 20 mg tablet 20 mg PO HS High Cholesterol 09/27/09 10/04/23 10/03/23 History
doxylamine succinate 25 mg tablet 25 mg PO HS sleep 06/08/17 10/04/23 10/03/23 History
(Sleep Aid (doxylamine))
furosemide 80 mg tablet 80 mg PO DAILY Fluid 06/08/17 10/04/23 10/03/23 History
Retention/Swelling
carvedilol 3.125 mg tablet 6.25 mg PO BID Blood Pressure 09/22/17 10/04/23 10/03/23 History
amlodipine 10 mg tablet 10 mg PO DAILY Blood Pressure 09/27/23 10/04/23 10/03/23 History
ascorbic acid (vitamin C) 1,000 mg 1,000 mg PO DAILY Supplement 09/27/23 10/04/23 10/03/23 History
tablet (Vitamin C)
calcium carbonate 600 mg-vitamin 1 tab PO DAILY Supplement 09/27/23 10/04/23 10/03/23 History
D3 10 mcg (400 unit) tablet
(Calcium 600 + D(3))
irbesartan 150 mg tablet 150 mg PO DAILY Blood Pressure 09/27/23 10/04/23 10/03/23 History
rivaroxaban 15 mg tablet (Xarelto) 15 mg PO QPM Blood Clot 09/27/23 10/04/23 10/03/23 History
Prevention/Tx
Review of Systems
-
All other systems: Negative unless noted
Vitals / Labs / Diagnostic Testing
Vital Signs
Temp Pulse Resp BP Pulse Ox
101.0 F H 69 20 130/54 95
10/05/23 05:23 10/05/23 08:59 10/05/23 06:15 10/05/23 08:59 10/05/23 06:15
Lab Data
10/05/23 04:14
10/05/23 04:14
Microbiology
10/04/23 16:02 Nasal Swab Influenza Types A & B (ANNA) - Final
Negative for Influenza A & B, NAAT
Negative results must be combined with clinical observations
and patient history.
Nucleic Acid Amplification test (NAAT)performed on the
[employer] platform.
Diagnostic Testing:
Physical Exam
-
HEENT: Normocephalic, Anicteric and Moist Mucous Membranes
Cardiovascular: S1/S2, Regular Rhythm, Murmur (2/6 both at sternal border and apex), Peripheral Edema (2+) and Calf Tenderness (n)
Respiratory: Wheeze (n), Rales (Bibasilar crackles, left greater than right), Rhonchi (n) and Non-Labored Respirations
GI: Soft, Distended and Non Tender
Neurology: Awake, Alert and Oriented
Skin: Other (Pallorous, pulses 2+)
General: Comfortable
Assessment
-
83-year-old male with complex medical history including PE 2012, atrial fibrillation on chronic anticoagulation, prostate cancer, pulmonary hypertension, recent admission for anemia requiring transfusion with endoscopy with polyps, hemorrhoids, now
presents with paroxysmal nocturnal dyspnea/orthopnea, admitted 10/04/2023. Transferred to higher level of care due to progressive shortness of breath, PND, requiring NIV. We are asked to help from a pulmonary standpoint 10/05/2023
Acute hypoxic respiratory insufficiency
Saturation in the 80s on 2 L, requiring NIV
Bilateral interstitial changes
Suspected acute congestive heart failure
Elevated proBNP
Cannot rule out interstitial pneumonitis
Questionable left pleuroparenchymal process
Small left pleural effusion
Fever
Anemia
Required transfusion
Endoscopy with polyps, hemorrhoids
Valvular disease
Moderate MR, severe , 1.1 cm�
Pulm hypertension, PA pressure 56 (was 35 06/2023)
Normal RV function
Chronic kidney disease, creatinine 1.9
Conditions present prior to admission
Hypertension/hyperlipidemia
Atrial fibrillation on chronic anticoagulation
History of pacemaker
Prostate cancer 2004
History of PE 2012
[id number] history of smoking quit
Suspected sleep apnea
Records suggest witnessed apnea in the past
Plan/recommendations
Patient with complex medical history
Salient features include crackles on exam, abnormal chest imaging, fevers, weight gain, PND
Cultures negative to date, pending
Clinical course suggests congestive heart failure
Patient describes 2 episodes now of paroxysmal nocturnal dyspnea
Moving forward
There does appear to be patchy bibasilar infiltrate, left pleuroparenchymal process with posterior consolidation on the lateral
Agree with empiric antibiotics for now
Cultures pending, negative to date
Nocturnal symptoms raise the possibility of significant nocturnal hypoxemia, apnea which may be predisposing to symptom complex
Will check nocturnal oximetry overnight on room air
Valvular disease noted
Cardiology following
Patient admits to dietary indiscretion (cheese, deli meats, tomato sauce), with no concern regarding salt intake
Would benefit from dietary modification
Abdominal distention noted. Patient states this is chronic
Check abd ultrasound to assess liver given pulm hypertension
Given history of thromboembolic disease, may require eventual VQ scan if shortness of breath, hypoxia persists
For now lets see how he responds to cardiac management
He would benefit from eventual outpatient sleep apnea evaluation and treatment given multiple comorbidities
Reviewed at length with patient, family at bedside
We will follow
--- NOTE | 2023-10-05 11:33 | PTCARENOTE ---
pt awake and alert, pleasant , on Bipap this am with sats of 96% , lungs diminished at bases , he was placed on 4L NC at 0900 and his sats are 96% , he was oob to bathroom and tolerated well , V paced on monitor , BP 116/42, day lower extremity
edema , pt stated he drinks alot of liquid during the day at home , he was given a CHF teaching packet and his and daughter in room and instructed to view the hospital videos on CHF , he is currently on a 480z fluid restriction and he and the
family were instructed on the amt of fluids he should be consuming daily , pt states he feels much better than yesterday , pt is currently IMU level of care
--- NOTE | 2023-10-05 11:56 | CON.ID ---
Consultation
-
Date/Time Consultation Requested: 10/05/2023 06:31
Date/Time Consultation Performed: 10/05/2023 1133
Requesting Provider: Dr. Dockery
Performing Provider: Dr. Rodríguez
Reason for Consultation: Fever
Chief Complaint / Past History
History of Present Illness
Romaine Whittaker is an 83-year-old man with a significant past medical history of atrial fibrillation, CHF and aortic stenosis being evaluated at the request of Dr. Dockery regarding fevers. History is obtained from chart review, along with patient
interview, and history obtained from the patient's family who was at the bedside.
The patient recently was an inpatient last week secondary to hypotension and elevated creatinine. During his hospital stay he received a transfusion. He ultimately was discharged late last week, but presents back to the ER on 10/04 secondary to
increasing shortness of breath. There was no history of fevers prior to admission, but since admission he has developed several episodes of fever to 101.2 degrees.
At present he denies any cough or congestion. He denies any chest pain. He notes some shortness of breath. He denies any abdominal pain
Past History
Additional Past Medical History:
A-fib
CHF
HTN
Dyslipidemia
Aortic stenosis
Hx PE
Hx prostate cancer
Additional Past Surgical History:
Cardiac ablation
Prostatectomy
Allergy History:
lisinopril [Lisinopril] Allergy (Intermediate, Verified 10/04/23 04:58)
cough
sotalol [Sotalol] Allergy (Intermediate, Verified 10/04/23 04:58)
bradycardia
candesartan [Candesartan] Allergy (Unknown, Verified 10/04/23 04:58)
PT UNAWARE of allergy
Medications Reviewed: Yes
Current Antibiotics:
Ceftriaxone (day #1)
Social History
Tobacco: Former Smoker
Alcohol: None
Drug: None
Personal:
Living: With Family
Employment: Retired
Family History
Family History: Not Pertinent
Review of Systems
Vital Signs
Temp Pulse Resp BP Pulse Ox
98.1 F 61 18 110/48 96
10/05/23 08:00 10/05/23 11:30 10/05/23 11:30 10/05/23 10:00 10/05/23 11:32
Physical Exam
Physical Exam
Constitutional: No Acute Distress, Comfortable and Non-toxic
Head: Normocephalic
Eyes: No Conjunctival Hemorrhage and Sclera Anicteric
Oral: No Thrush and No Ulcers
Cardiovascular: S1/S2 and Murmur; Negative S3/S4
Pulmonary: Coarse and Non Labored; Negative Rales or Rhonchi
Gastrointestinal: Soft, Non Tender, Non Distended and Normal Bowel Sounds
Genito-Urinary: Negative López or CVA Tenderness
Neurological: Awake, Alert and Oriented
Psychological: Calm
Lab / Diagnostic Study Results
10/05/23 04:14
10/05/23 04:14
Abs Immat Gran (auto) 0.1 10^3/uL (0-0.05) H 10/05/23 04:14
Absolute Neuts (auto) 6.6 10^3/uL (1.4-6.5) H 10/05/23 04:14
Absolute Lymphs (auto) 0.6 10^3/uL (1.2-3.4) L 10/05/23 04:14
Absolute Monos (auto) 1.0 10^3/uL (0.1-0.6) H 10/05/23 04:14
Absolute Basos (auto) 0.0 10^3/uL (0-0.2) 10/05/23 04:14
Immature Gran % 0.6 % (0-0.5) H 10/05/23 04:14
Neutrophils % 80.0 % (42.2-75.2) H 02/20/24 04:14
Lymphocytes % 7.0 % (20.5-51.1) L 10/05/23 04:14
Monocytes % 12.0 % (1.7-9.3) H 10/05/23 04:14
Eosinophils % 0.2 % (0-6) 10/05/23 04:14
Basophils % 0.2 % (0-2) 10/05/23 04:14
Microbiology Results
Micro:
10/04/23 16:51 Blood Culture - Pending
Blood/Venous
10/04/23 16:02 Influenza Types A & B (ANNA) - Final
Nasal Swab Negative for Influenza A & B, NAAT
Negative results must be combined with clinical observations
and patient history.
Nucleic Acid Amplification test (NAAT)performed on the
[employer] platform.
10/04/23 16:01 Blood Culture - Pending
Blood/Venous
Imaging:
10/05/2023 CXR (portable): No convincing focal infiltrates. Stable trace bilateral pleural effusions. No visualized pneumothorax. Mild to moderate CHF slightly progressed from prior exam.
Assessment / Plan
Fever
Normal white count with left shift
BENITO
Exacerbation of CHF
A-fib
CHF
HTN
Dyslipidemia
Aortic stenosis
Hx PE
Hx prostate cancer
Recommendations:
Influenza and COVID testing negative
At present, no convincing evidence of pneumonia. Source of intermittent fevers not immediately clear.
Given fever, though, continue with empiric ceftriaxone for the present.
Monitor blood cultures and urine culture.
Monitor white count and temperature curve.
Further antibiotic recommendations as additional data is returned.
--- NOTE | 2023-10-05 12:09 | CM ---
CM following re: discharge planning.
reviewed pt's chart, met with pt. pt's spouse and pt's daughter Shreya at bedside.
Pt is an 83 year old male, admitted with primary dx of SOB. Pt currently requires 4L NC of O2, uses Bi-pap.
Pt lives with spouse in a 2SH, 4 steps to enter, has 2 supportive children. Pt's spouse stated she provides all necessary support to pt at home and she stated that pt had difficulties with waling and pt's spouse stated that pt should have after care
VN services at discharge. A list of VN providers given to the pt's spouse and she preferred [facility]. A referral to [facility] made. No DME, VN or SNF history.
PT and OT will evaluate the pt to determine a level of care at discharge
PCP: Cas morrell
Pharmacy: [facility].
D/C plan: home with [facility] and family support.
CM will follow with discharge plan updates as hospitalization progresses
--- NOTE | 2023-10-05 12:28 | W.PN.ONC ---
Addendum entered and electronically signed by Shreya Hess MD 10/05/23 16:08:
Agree w/ A&P as below
Continue IV iron
Monitor for re- bleeding on Xarelto
Will need outpatient heme f/u, and consideration for NICHOLAS if anemia persists once iron stores are replete
Original Note:
Today's Communication / Plan
-
10/04 Hgb 8.1, Hct 24.9
Transfuse as needed to maintain Hgb >7
CBC w/ diff daily
Continue IV iron
B12 and folic acid daily
Epo level and additional labs remain pending
Fluid restriction of 48oz daily reinforced
Hematest stools
Monitor fevers, ID following
[facility] will reschedule patient's office follow up.
Await additional labs,.
Impression
Impression
Acute on chronic anemia
Recent GIB s/p 2units PRBCs
Chronic anticoagulation (Xarelto)
Iron deficiency
CKD3b
Intermittent fevers
CHF exacerbation
Hx prostate cancer
Hx PE
Subjective/Objective
Subjective/Objective
patient is resting in bed. family at bedside. he denies pain.
Vital Signs:
Vital Signs
Temp Pulse Resp BP Pulse Ox
98.1 F 61 18 110/48 96
10/05/23 08:00 10/05/23 11:30 10/05/23 11:30 10/05/23 10:00 10/05/23 11:32
physical exam:
aaox3, pallor, calm/pleasant
murmur, V-paced on monitor
lungs diminished, poor effort, 4L nasal cannula
hypoactive bowel sounds
+2/+3 pedal edema bilaterally
Lab Results:
Laboratory Data
WBC 8.3 10^3/uL (4.8-10.8) 10/05/23 04:14
Hgb 8.1 g/dL (13.0-18.0) L 10/05/23 04:14
Plt Count 205 10^3/uL (130-400) 10/05/23 04:14
eGFR 35.00 10/05/23 04:14
10/05/23 CXR Mild to moderate CHF, slightly progressed.
Orders
Orders
Orders From Last 24 Hours
10/04/23 13:00
Cyanocobalamin [Vitamin B-12] 1,000 mcg PO DAILY
FOLic ACID [Folvite] 1 mg PO DAILY
10/04/23 13:13
Erythropoietin (EPO) [S] Urgent
10/04/23 13:25
Hemetest Stools As Directed
10/04/23 14:00
Ferric Gluconate [Ferrlecit] 125 mg 0.9% Sodium Chloride 100 ml [Nss] 100 ml IV DAILY@1400
10/04/23 16:01
Serum Free Light Chains [[place]/Lambda FLC Quant] [S] Routine
--- NOTE | 2023-10-05 13:35 | W.PN.NEPH.PH ---
Today's Communication / Plan
-
cont lasix, follow labs
Assessment/Plan
-
IMP:
Acute on chronic heart failure p EF
Valvular heart disease
History of mild mitral stenosis, moderate mitral regurgitation, moderate aortic regurgitation, moderate to severe aortic stenosis with LVOT of 2.0 cm/valve area is 0.9 cm2.� Mild tricuspid regurgitation with trace pulmonic regurgitation
Chronic blood loss anemia-recent PRBC and neg EGD and C scope
Chronic kidney disease stage IIIb cr 1.5-1.7
Essential HTN
HLD
hx of parox Afib
hx of PE
hx of prostate Cancer
h/o PPM
PLan:
Recent admit with anemia from GIB s/p PRBC now returns with sob and CHF flare, pt was not following FR
CKD-cr 1.9 seem close to baseline 1.5-1.7
he felt to have cardiorenal etiology, bland UA
cont IV lasix 40 BID, wt improving
noted events overnight with PND, acute resp failure brief NIV, now on 4lit NC
maintain FR 48 ounces/day
anemia managed by heme on IV fe infusion
BP are stable, cont home meds holding ARB, CCB
echo results noted and eval of based on the clinical course
fever-w/u per primary on empiric abx , await cx
d/w and daughter in detail
-
-
Date of Service: October 05, 2023
CC / HPI / ROS
-
Chief Complaint:
CKD
History of Present Illness:
cr slightly up at 1.9, bicarb 20
wt decreasing, moved to IMU overnight for acute resp failure briefly on BIPAP, currently on 4lit O2 NC
febrile this am
hb at 8.1 stable
Review of Systems:
no cp
sob improving , edema better
Labs
-
Labs:
WBC 8.3 10^3/uL (4.8-10.8) 10/05/23 04:14
RBC 2.81 10^6/uL (4.70-6.10) L 10/05/23 04:14
Hgb 8.1 g/dL (13.0-18.0) L 10/05/23 04:14
Hct 24.9 % (39.0-52.0) L 10/05/23 04:14
Plt Count 205 10^3/uL (130-400) 10/05/23 04:14
Sodium 141 mmol/L (135-145) 10/05/23 04:14
Potassium 4.6 mmol/L (3.5-5.1) 10/05/23 04:14
Chloride 105 mmol/L (98-107) 10/05/23 04:14
Carbon Dioxide 20 mmol/L (22-30) L 10/05/23 04:14
BUN 56 mg/dl (9-20) H 10/05/23 04:14
Creatinine 1.9 mg/dL (0.7-1.3) H 10/05/23 04:14
eGFR 35.00 10/05/23 04:14
Glucose 116 mg/dl (70-99) H 10/05/23 04:14
Calcium 8.8 mg/dl (8.4-10.2) 10/05/23 04:14
Pxc-H-Mvxmheirfjr Pept 6350 pg/ml 10/04/23 05:51
Albumin 3.3 g/dl (3.5-5.0) L 10/04/23 05:51
Physical Exam
-
Vital Signs:
Vital Signs
Temp Pulse Resp BP Pulse Ox
98.1 F 61 18 110/48 96
10/05/23 08:00 10/05/23 11:30 10/05/23 11:30 10/05/23 10:00 10/05/23 11:32
Cardiovascular:: Regular rate and rhythm
Respiratory:: Bilateral: Rales (at bases)
Lung Excursion:: Normal
Abdomen:: Nontender and Soft
Extremity Edema:: +1: Bilateral:
López Catheter: No
[2023-10-05] MEDS: FERRLECIT 110 MG IV (16:10)
[2023-10-05] MEDS: XARELTO 15 MG PO (17:17)
[2023-10-05 21:44] LABS: Haptoglobin 300 mg/dL (30-200)
[2023-10-06] VITALS (11 sets, daily range): BP systolic 114–147; BP diastolic 45–67; PULSE 60; O2SAT 94; BMI 30.1
--- NOTE | 2023-10-06 06:20 | W.PN.HOSP.TC ---
Today's Communication/Plan
-
.
Assessment / Plan
Assessment / Plan
Physical Exam
General: No Apparent Distress, Comfortable and Appears Chronically Ill
HEENT: Moist mucous membranes and Atraumatic
Respiratory: Rales
Cardiac: S1/S2 and Murmur
GI: Soft, Non Tender and normal contour per patient.
Rectal: No Maroon Stools
Genito-urinary: No costovertebral tender
Musculoskeletal: Edema, Left Lower Extremity and Edema, Right Lower Extremity
Skin: Warm; No Jaundice
Neuro: AO x 3 and No Motor Deficits; No Nonfocal/grossly intact, Slurred Speech or Facial Droop
Psych: Calm and Intact Judgment/Insight
83 years old male presented with shortness of breath and was found to have congestive heart.
# Fever, no recurrence
Two times fevers
Treating as PNA
Negative COVID and flu
Blood cultures on 10/04
Urine not c/w UTI
No abd pain
Hypoxia noted with sob
Chest x ray c/w CHF.
Appreciate pulmonary and ID help
# Acute hypoxic respiratory failure requiring noninvasive ventilatory with BiPAP
Off BiPAP, transition to nasal cannula as tolerated. now on 2 liters.
Component of congestive heart failure/valvular heart disease with possible PNA. Empiric Rocephin.
Appreciate pulmonary input
#Acute on chronic heart failure with reduced ejection fraction around 50%.� Known to have stage II diastolic dysfunction also
c/w Lasix to 40 mg twice daily.
Negative troponin.
Monitor renal function, electrolyte, weight and input/output
Continue with carvedilol but added holding parameters
Hold amlodipine and irbesartan to allow use of aggressive diuretic therapy for now
He sees Dr Knight.
Echocardiogram 10/04/23 showed left ventricular ejection fraction 57%, mild to moderate MR, moderate to severe aortic stenosis with some progression. Estimated pulmonary artery pressure 56 mmHg.
Appreciate cardiology input
# Constipation
c/w bowel regimen. Had BM.
Obese abdomen. US no acute findings
No abd pain. No abd tenderness on exam.
# Valvular heart disease
Some progression of aortic disease noted on echocardiogram 10/04/23.
History of mild mitral stenosis, moderate mitral regurgitation, moderate aortic regurgitation, moderate to severe aortic stenosis with LVOT of 2.0 cm/valve area is 0.9 cm2.� Mild tricuspid regurgitation with trace pulmonic regurgitation
# Chronic blood loss anemia/ �heme positive stool/acute blood loss anemia is related to/associated with/due to/exacerbated by Xarelto
- s/p 2 units ( last admission) and Hb around� 8
- anemia workup shows iron deficiency; IV iron was given, will finish the course in the hospital
-Already on Xarelto
-Status post upper and lower endoscopic evaluation that showed diverticulosis, severe hemorrhoids and small polyps
Patient reported an appointment with hematology for erythropoietin injection
Appreciate hematology input
# Chronic kidney disease stage IIIb
Creatinine stable at baseline
Monitor while on diuretic
BMP in AM
Appreciate nephrology input
# Essential HTN
- hold ARB/CCB, c/w Coreg & Lasix.
HLD - statin
#hx of parox Afib
- c/w� Xarelto
hx of PE
hx of prostate Cancer
Total time spent to see the patient, examine the patient on the floor, review data and lab results, discuss treatment plan with patient, nursing staff around 55 minutes
Anticipated Discharge: > 48 hours
Subjective/Interval History
-
Date of Service: October 06, 2023
He is feeling better
no sob
no chest pain
no abd pain
Objective Data
-
Vital Signs:
Vital Signs
Temp Pulse Resp BP Pulse Ox
99.4 F 60 20 126/51 92
10/06/23 04:00 10/06/23 05:45 10/06/23 05:45 10/06/23 04:00 10/06/23 05:45
I&O
10/04/23 10/05/23 10/06/23
06:59 06:59 06:59
Intake Total 840 / 840 750 / 750
Output Total 2150 / 2150 450 / 450
Balance -1310 / -1310 300 / 300
--- NOTE | 2023-10-06 07:50 | W.PN.INTV ---
Today's Communication / Plan
Recommendations
Continue ceftriaxone
Eventual follow-up chest x-ray, can be done as outpatient
Nocturnal oximetry noted
Out of bed to chair, ambulate
Ideally, would be discharged on nocturnal oxygen
For transfer out of ICU. Pulmonary will continue to follow
Assessment
-
83-year-old male with complex medical history including PE 2012, atrial fibrillation on chronic anticoagulation, prostate cancer, pulmonary hypertension, recent admission for anemia requiring transfusion with endoscopy with polyps, hemorrhoids, now
presents with paroxysmal nocturnal dyspnea/orthopnea, admitted 10/04/2023. Transferred to higher level of care due to progressive shortness of breath, PND, requiring NIV. We are asked to help from a pulmonary standpoint 10/05/2023
Acute hypoxic respiratory insufficiency
Saturation in the 80s on 2 L, requiring NIV
Bilateral interstitial changes
Suspected acute congestive heart failure
Elevated proBNP
Cannot rule out interstitial pneumonitis
Questionable left pleuroparenchymal process
Small left pleural effusion
Fever
Anemia
Required transfusion
Endoscopy with polyps, hemorrhoids
Valvular disease
Moderate MR, severe , 1.1 cm�
Pulm hypertension, PA pressure 56 (was 35 06/2023)
Normal RV function
Chronic kidney disease, creatinine 1.9
Conditions present prior to admission
Hypertension/hyperlipidemia
Atrial fibrillation on chronic anticoagulation
History of pacemaker
Prostate cancer 2004
History of PE 2012
[id number] history of smoking quit
Suspected sleep apnea
Records suggest witnessed apnea in the past
Plan/recommendations
At this time, patient appears to be objectively and subjectively improved.
95% on 2 L
Chest exam with minimal crackles at left base
Abdominal ultrasound with suspected fatty liver, patent portal and hepatic vessels
Cultures negative to date, pending
Clinical course suggests congestive heart failure
Patient describes 2 episodes now of paroxysmal nocturnal dyspnea
Moving forward
There does appear to be patchy bibasilar infiltrate, left pleuroparenchymal process with posterior consolidation on the lateral
Agree with empiric antibiotics for now, ID following
Cultures pending, negative to date
Remains on ceftriaxone
Nocturnal oximetry significantly abnormal, 83% on room air required 2 L. Despite being on 2 L, persistent hypoxia noted
Will plan for home oxygen at night if patient agreeable. Will repeat as needed
Valvular disease noted
Cardiology following
Patient admits to dietary indiscretion (cheese, deli meats, tomato sauce), with no concern regarding salt intake
Dietary discretion reviewed
Abdominal distention noted. Patient states this is chronic
Abdominal ultrasound with fatty liver, otherwise patent hepatic and portal vessels
Given history of thromboembolic disease, may require eventual VQ scan if shortness of breath, hypoxia persists
This can be done as an outpatient. Patient would benefit from pulmonary follow-up
For now lets see how he responds to cardiac management
He would benefit from eventual outpatient sleep apnea evaluation and treatment given multiple comorbidities
Patient downgraded to telemetry. Pulmonary will continue to follow
Subjective Dataa
Subjective Data
Date of Service:
Date of Service: October 06, 2023
Subjective:
Patient continues to improve. Denies chest pain, cough, nausea, abdominal pain. Did not use BiPAP overnight. Has not yet to be up ambulating. Remains on nasal cannula, 92%
Objective Data
Data Reviewed
Vital Signs / I&O / Oxygen:
Vital Signs
Temp Pulse Resp BP Pulse Ox
98.3 F 60 20 126/51 92
10/06/23 07:00 10/06/23 05:45 10/06/23 05:45 10/06/23 04:00 10/06/23 05:45
Intake and Output
10/05/23 10/06/23 10/07/23
06:59 06:59 06:59
Intake Total 840 / 840 750 / 750
Output Total 2150 / 2150 450 / 450
Balance -1310 / -1310 300 / 300
SaO2 92
Nasal Cannula flow liters per 2
minute
Physical Exam
General: Comfortable
HEENT: Normocephalic and Anicteric
Cardiovascular: S1-S2, Regular Rhythm, Murmur (2/6, sternal border and apex) and Peripheral Edema (1+)
Respiratory: Wheeze (n), Crackles (Few at base), Rhonchi (n) and Non-Labored Respirations
GI: Soft, Distended (Slight distended) and Non Tender
Neurology: Awake, Alert and No Motor Deficits
Skin: Cyanosis (n), Jaundice (n) and Rash (n)
Labs/Micro/Reports
Lab Data
10/05/23 04:14
10/05/23 04:14
Microbiology
10/04/23 16:51 Blood/Venous Blood Culture - Preliminary
No Growth in 24 hours- Final report to follow
10/04/23 16:01 Blood/Venous Blood Culture - Preliminary
No Growth in 24 hours- Final report to follow
10/04/23 16:02 Nasal Swab Influenza Types A & B (ANNA) - Final
Negative for Influenza A & B, NAAT
Negative results must be combined with clinical observations
and patient history.
Nucleic Acid Amplification test (NAAT)performed on the
[employer] platform.
[2023-10-06] MEDS: FOLVITE 1 MG PO (08:06)
[2023-10-06] MEDS: LASIX 40 MG IV ×2 (08:06→17:44)
[2023-10-06] MEDS: VITAMIN B-12 1000 MCG PO (08:06)
[2023-10-06] MEDS: COREG 6.25 MG PO ×2 (08:06→19:59)
[2023-10-06] MEDS: ROCEPHIN 1000 MG IV (08:07)
[2023-10-06] MEDS: STERILE WATER FOR INJECTION 10 ML IV (08:07)
[2023-10-06] MEDS: MIRALAX 17 GRAMS PO (08:07)
--- NOTE | 2023-10-06 09:23 | W.PN.CARDCBS ---
Today's Communication / Plan
-
Agree with further IV diuresis, appreciate nephrology input
Workup of possible TAVR can be done as an outpatient
Impression / Plan
-
.
PCP: Dr. Forrest
Rolled Ham Lacer: Dr. Knight
Impression:
Presented with SOB
Recent admission 09/27 - 09/29/2023 for anemia, GIB
Acute hypoxic respiratory insufficiency
Acute HFpEF
Acute on chronic RI, CKD 3b
Iron deficiency anemia
Paroxysmal atrial fibrillation
s/p PVI 07/18/2009
s/p redo PVI 06/26/2010
Chronic Xarelto anticoagulation
Complete heart block s/p Medtronic Micra PPM 06/09/2017
h/o B/L PE 12/2012
HTN
HLD
Mod-Severe
Mod AI
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
Echo 05/31/2023: EF 50-55%, mild cLVH, stage II diastolic dysfunction, mild MS with peak/mean gradients 17/6 mmHg, moderate MR, moderate-severe w/ peak/mean gradients 43-28 mmHg, SHELLEY 0.9 cm2, moderate AI, mild TR, estimated PAP 35 mmHg
Echo 10/04/2023: EF 57%, mild to mod MR, mod to severe with peak/mean AV grad 79/45 mmHg, the SHELLEY 1.1 cm2.� Mild to mod AR, mild to mod TR, PASP 56 mmHg, pleural effusion, dilated IVC
�Mild to moderate tricuspid regurgitation. Estimated pulmonary artery pressure
�
Plan:
Remains volume overloaded on exam, agree with IV lasix for further diuresis, appreciate nephrology input
Wean O2 as able
Follow daliy weights and renal function
Recent echo and finding of severe discussed with patient
Plan for outpatient work up regarding possible TAVR
Remains on Xarelto 15 mg for hx of Afib and PE.
Remains on Coreg.
Amlodipine and irbesartan on hold - BP is reasonable, could consider adding back stepwise as an outpatient
Additional hx: Baldomero has a history of A-fib status post PVI in 2008 and 2009 on chronic Xarelto, complete heart block status post Medtronic pacer in 2016, pulmonary embolus in 2012, hypertension, CKD 3b, moderate to severe aortic stenosis, moderate
aortic insufficiency, moderate MR.� He presents with worsening shortness of breath, weight gain, lower extremity edema.� He is admitted for acute diastolic CHF.� He feels better since admission.� He remains on 2 L of oxygen.
HPI: Romaine is an 83 year old male with PMH of paroxysmal atrial fibrillation, PPM, PE, , and nonobstructive CAD who presented to [facility] for evaluation of worsening SOB. He was recently admitted at with anemia and received 2 units PRBCs. He
states with this he noted gradual weight gain and increased LE edema. Then over the past few days he had worsening SOB and this AM his symptoms significantly worsened and he came to ER for evaluation. On arrival, he was noted to have evidence of
acute heart failure on exam with CXR noting pulmonary edema with proBNP 6350. He was also hypoxic and placed on 2L NC. He was started on IV lasix and has had good urine output. He takes lasix 80mg daily at home and reports he has been compliant. He
also notes his weight is up from his recent baseline. He reports he fell down the stairs in 06/2023 and afterwards had diminished appetite, with his weight dropping to approximately 205-206lbs. Since his last admission, his weight has been slowly
creeping back up. At this time, he reports he is feeling well overall and his SOB is improving. Still has significant LE edema.
Progress Note - Rolled Ham Lacer
Subjective
Date of Service: October 06, 2023
NAOE. Feels that his edema and breathing are improving. Remains in ICU on supplemental O2.
Objective
Labs:
10/05/23 04:14
10/05/23 04:14
Labs
Hgb 8.1 g/dL (13.0-18.0) L 10/05/23 04:14
Hct 24.9 % (39.0-52.0) L 10/05/23 04:14
Plt Count 205 10^3/uL (130-400) 10/05/23 04:14
Sodium 141 mmol/L (135-145) 10/05/23 04:14
Potassium 4.6 mmol/L (3.5-5.1) 10/05/23 04:14
BUN 56 mg/dl (9-20) H 10/05/23 04:14
Creatinine 1.9 mg/dL (0.7-1.3) H 10/05/23 04:14
Glucose 116 mg/dl (70-99) H 10/05/23 04:14
Troponins
10/04/23
05:51
Troponin I < 0.012
Vital Signs and I&O:
Vital Signs
Temp Pulse Resp BP Pulse Ox
98.3 F 60 20 126/51 92
10/06/23 07:00 10/06/23 05:45 10/06/23 05:45 10/06/23 04:00 10/06/23 05:45
Vital Signs
Temp Pulse Resp BP Pulse Ox
98.3 F 60 20 126/51 92
10/06/23 07:00 10/06/23 05:45 10/06/23 05:45 10/06/23 04:00 10/06/23 05:45
Intake & Output
10/04/23 10/05/23 10/06/23 10/07/23
06:59 06:59 06:59 06:59
Intake Total 840 / 840 750 / 750
Output Total 2150 / 2150 450 / 450 600 / 600
Balance -1310 / -1310 300 / 300 -600 / -600
Physical Exam
Physical Exam
Gen: NAD, AAOx3
HEENT: NC/AT, sclera anicteric
Neck: No JVD
CV: RRR, 3/6 late peaking OSIEL radiating across the precordium
Lungs: CTAB on 2L NC
Abd: S/ND
Ext: 2+ pitting b/l LE edema
Skin: Warm, dry
Neuro: Non-focal
--- NOTE | 2023-10-06 10:50 | W.PN.ID1 ---
Date of Service
Date of Service: October 06, 2023
Today's Communication
Continue ceftriaxone for today.
Assessment / Plan
Fever
- Improved
Normal white count with left shift
BENITO
Exacerbation of CHF
A-fib
CHF
HTN
Dyslipidemia
Aortic stenosis
Hx PE
Hx prostate cancer
Recommendations:
Influenza and COVID testing negative
At present, no convincing evidence of pneumonia. Source of intermittent fevers not immediately clear.
Given prior fever, though, continue with empiric ceftriaxone for today, but if patient remains afebrile over the next 24 hours will discontinue antibiotics.
Monitor blood cultures and urine culture.
Monitor white count and temperature curve.
����������������������������������������������������������
Chief Complaint
-: Pneumonia
Subjective / Review of Systems
Review of Systems: No Fever, No Chills, Cough, No Sputum Production and Other (No shortness of breath.)
Vital Signs / Physical Exam
Vital Signs
Vital Signs
Temp Pulse Resp BP Pulse Ox
98.3 F 67 20 126/56 94
10/06/23 07:00 10/06/23 09:15 10/06/23 09:15 10/06/23 08:00 10/06/23 08:30
Physical Exam
Constitutional: No Acute Distress, Comfortable and Non-toxic
Eyes: No Conjunctival Hemorrhage and Sclera Anicteric
Cardiovascular: S1/S2; Negative S3/S4
Pulmonary: Non Labored; Negative Wheezes or Rales
Gastrointestinal: Soft and Non Tender
Neurological: Awake and Alert
Psychological: Calm
Objective Data
Lab Data
Lab Results
10/05/23 04:14
Estimated Creat Clear 37 ml/min 10/05/23 04:14
Total Bilirubin 0.8 mg/dl (0.2-1.3) 10/04/23 05:51
AST 26 U/L (17-59) 10/04/23 05:51
ALT 19 U/L (0-50) 10/04/23 05:51
Alkaline Phosphatase 78 U/L (38-126) 10/04/23 05:51
Most recent labs reviewed.
Micro Results:
10/04/23 16:51 Blood Culture - Preliminary
Blood/Venous No Growth in 24 hours- Final report to follow
10/04/23 16:01 Blood Culture - Preliminary
Blood/Venous No Growth in 24 hours- Final report to follow
10/04/23 16:02 Influenza Types A & B (ANNA) - Final
Nasal Swab Negative for Influenza A & B, NAAT
Negative results must be combined with clinical observations
and patient history.
Nucleic Acid Amplification test (NAAT)performed on the
[employer] platform.
Imaging:
10/05/2023 CXR (portable): No convincing focal infiltrates. Stable trace bilateral pleural effusions. No visualized pneumothorax. Mild to moderate CHF slightly progressed from prior exam.
[2023-10-06 11:00] LABS: Blood Urea Nitrogen 53 mg/dl (9-20); Calcium 8.1 mg/dl (8.4-10.2); Carbon Dioxide 24 mmol/L (22-30); Chloride 107 mmol/L (98-107); Estimated Creatinine Clearance 38 ml/min; Glucose 149 mg/dl (70-99); Potassium 4.1 mmol/L (3.5-5.1); Sodium 138 mmol/L (135-145); eGFR 37.35
--- NOTE | 2023-10-06 11:41 | PN.CDI ---
Addendum entered and electronically signed by Josep Dockery MD 10/07/23 06:24:
Diagnosis BENITO has been ruled out
Original Note:
CDI
- -
CDI:
Physician Documentation Request
Admit Date: 10/04/23 08:33
Dear Doctor Marcos,
Patient admitted for CHF exacerbation.
10/06 Utility Forester PN: 'BENITO'
Laboratory Tests
10/04/23 10/05/23 10/06/23
05:51 04:14 10:31
Creatinine 1.8 H 1.9 H 1.8 H
The purpose of this query is not to question medical judgement, but to ensure the accuracy of the conditions reported for your patient.
There is either a lack of clinical support for this condition in the current medical record, or there is a lack of recognized standard criteria to support the condition.
Criteria for BENITO*
1 Increase in serum creatinine by > or = to 0.3 mg/dL (> or = to 26.5 micromol/L) within 48 hours, OR
2 Increase in serum creatinine to > or = to 1.5 times baseline, which is known or presumed to have occurred within 7 days, OR
3 Urine volume < 0.5 nL/kg/hour for six hours
The request is for one of the following:
- Additional documentation to support the condition. Indicate if this is in lieu of what may be considered standard criteria, and/or support why the standard criteria may not be present for this patient.
- A more appropriate diagnosis, reflecting the patient's condition
- Diagnosis BEINTO remains a known or suspected condition for this patient and is further supported by (include additional documentation in the medical record)
- Diagnosis BENITO has been ruled out and a more appropriate diagnosis for this patient's condition is .
- Other (please specify)
Use of terms such as suspected, likely, concern for, or probable (associated with a specific diagnosis that is being evaluated, monitored, or treated as if it exists) are acceptable and can be coded in the inpatient setting, when documented at the
time of discharge.
Thank you,
Carolyn Sams RN, BSN
CDI Specialist
Available via [place] text
Please use your independent medical judgment in providing your response.
--- NOTE | 2023-10-06 13:27 | W.PN.NEPH.PH ---
Today's Communication / Plan
-
- cr downtrending
- continue diuresis
Assessment/Plan
-
IMP:
Acute on chronic heart failure p EF
Valvular heart disease
History of mild mitral stenosis, moderate mitral regurgitation, moderate aortic regurgitation, moderate to severe aortic stenosis with LVOT of 2.0 cm/valve area is 0.9 cm2.� Mild tricuspid regurgitation with trace pulmonic regurgitation
Chronic blood loss anemia-recent PRBC and neg EGD and C scope
Chronic kidney disease stage IIIb cr 1.5-1.7
Essential HTN
HLD
hx of parox Afib
hx of PE
hx of prostate Cancer
h/o PPM
PLan:
Recent admit with anemia from GIB s/p PRBC now returns with sob and CHF flare, pt was not following FR
CKD-cr 1.8 seem close to baseline 1.5-1.7
he felt to have cardiorenal etiology, bland UA
cont IV lasix 40 BID, wt improving
noted events overnight with PND, acute resp failure brief NIV, now on 4lit NC
maintain FR 48 ounces/day
anemia managed by heme on IV fe infusion
BP are stable, cont home meds holding ARB, CCB
echo results noted and eval of based on the clinical course
fever-w/u per primary on empiric abx , await cx
d/w and daughter in detail
-
-
Date of Service: October 06, 2023
CC / HPI / ROS
-
Chief Complaint:
CKD
History of Present Illness:
cr slightly up at 1.8, bicarb 24
back to regular floor
hb at 8.1 stable
Review of Systems:
no cp
sob improving , edema better
Labs
-
Labs:
WBC 8.3 10^3/uL (4.8-10.8) 10/05/23 04:14
RBC 2.81 10^6/uL (4.70-6.10) L 10/05/23 04:14
Hgb 8.1 g/dL (13.0-18.0) L 10/05/23 04:14
Hct 24.9 % (39.0-52.0) L 10/05/23 04:14
Plt Count 205 10^3/uL (130-400) 10/05/23 04:14
Sodium 138 mmol/L (135-145) 10/06/23 10:31
Potassium 4.1 mmol/L (3.5-5.1) 10/06/23 10:31
Chloride 107 mmol/L (98-107) 10/06/23 10:31
Carbon Dioxide 24 mmol/L (22-30) 10/06/23 10:31
BUN 53 mg/dl (9-20) H 10/06/23 10:31
Creatinine 1.8 mg/dL (0.7-1.3) H 10/06/23 10:31
eGFR 37.35 10/06/23 10:31
Glucose 149 mg/dl (70-99) H 10/06/23 10:31
Calcium 8.1 mg/dl (8.4-10.2) L 10/06/23 10:31
Frl-N-Oyjxroiuhcj Pept 6350 pg/ml 10/04/23 05:51
Albumin 3.3 g/dl (3.5-5.0) L 10/04/23 05:51
Physical Exam
-
Vital Signs:
Vital Signs
Temp Pulse Resp BP Pulse Ox
98.4 F 61 17 134/55 95
10/06/23 11:27 10/06/23 11:27 10/06/23 11:27 10/06/23 11:27 10/06/23 11:27
Cardiovascular:: Regular rate and rhythm
Respiratory:: Bilateral: Coarse
Lung Excursion:: Normal
Abdomen:: Nontender and Soft
Bowel Sounds:: Normal
Extremity Edema:: None: Bilateral:
López Catheter: No
[2023-10-06] MEDS: FERRLECIT 110 MG IV (15:24)
[2023-10-06] MEDS: DUONEB 3 ML INH ×2 (16:42→22:50)
[2023-10-06] MEDS: XARELTO 15 MG PO (17:44)
[2023-10-06] MEDS: TYLENOL 1000 MG PO (20:38)
[2023-10-06 22:03] LABS: Erythropoietin (EPO) 31 mU/mL (4-27)
[2023-10-07] VITALS (9 sets, daily range): BP systolic 116–134; BP diastolic 47–55; PULSE 63; O2SAT 94; BMI 29.9
[2023-10-07 01:33] LABS: Free Kappa Light Chains,Quant 40.19 mg/L (3.30-19.40); Free Lambda Light Chains,Quant 24.09 mg/L (5.71-26.30); Kappa/Lambda Fr Light Ratio 1.67 (0.26-1.65)
[2023-10-07 05:33] LABS: Hematocrit 21.8 % (39.0-52.0); Mean Corp Hgb Conc. 32.1 g/dL (33.0-37.0); Mean Corpuscular Hgb 29.3 pg (27.0-31.0); Mean Corpuscular Volume 91.2 fL (80.0-94.0); Mean Platelet Volume 11.8 fL (7.4-10.4); Platelet Count 163 10^3/uL (130-400); Red Blood Cell Count 2.39 10^6/uL (4.70-6.10)
[2023-10-07 06:01] LABS: Blood Urea Nitrogen 58 mg/dl (9-20); Calcium 8.2 mg/dl (8.4-10.2); Carbon Dioxide 25 mmol/L (22-30); Chloride 104 mmol/L (98-107); Estimated Creatinine Clearance 38 ml/min; Glucose 102 mg/dl (70-99); Potassium 3.8 mmol/L (3.5-5.1); Sodium 139 mmol/L (135-145); eGFR 37.35
--- NOTE | 2023-10-07 06:20 | W.PN.UPDATE ---
Update Note
Progress Note Update
Hgb level dropped down from 8.1 to 7.0 this morning, no signs of bleeding and vital signs with normal limit. Blood consent obtained, type and screen and 1 unit of blood was ordered as recommended per hematology to transfuse as needed to maintain Hgb
>7.
[2023-10-07] MEDS: MIRALAX 17 GRAMS PO (08:14)
[2023-10-07] MEDS: STERILE WATER FOR INJECTION 10 ML IV (08:15)
[2023-10-07] MEDS: COREG 3.125 MG PO ×2 (08:15→19:59)
[2023-10-07] MEDS: FOLVITE 1 MG PO (08:18)
[2023-10-07] MEDS: VITAMIN B-12 1000 MCG PO (08:18)
[2023-10-07] MEDS: LASIX 40 MG IV ×2 (08:18→15:38)
[2023-10-07] MEDS: ROCEPHIN 1000 MG IV (08:18)
--- NOTE | 2023-10-07 09:00 | W.PN.HOSP.TC ---
Today's Communication/Plan
-
.
Assessment / Plan
Assessment / Plan
Physical Exam
General: No Apparent Distress, Comfortable and Appears Chronically Ill
HEENT: Moist mucous membranes and Atraumatic
Respiratory: Rales mostly left lower
Cardiac: S1/S2 and Murmur
GI: Soft, Non Tender and normal contour per patient.
Rectal: No Maroon Stools
Genito-urinary: No costovertebral tender
Musculoskeletal: Edema, Left Lower Extremity and Edema, Right Lower Extremity
Skin: Warm; No Jaundice
Neuro: AO x 3 and No Motor Deficits; No Nonfocal/grossly intact, Slurred Speech or Facial Droop
Psych: Calm and Intact Judgment/Insight
83 years old male presented with shortness of breath and was found to have congestive heart.
#Likely acute bronchitis,
Chest x ray did not show definitive infiltrate/ opacity
He seems to do well after IV Abx
still coughing, come rales in left lower lung and on oxygen
Will try to wean off O2, encourage to use incentive spirometry
Negative COVID and flu
Blood cultures on 10/04 no growth
Urine not c/w UTI
No abd pain
Appreciate pulmonary and ID help
# Acute hypoxic respiratory failure requiring noninvasive ventilatory with BiPAP
Off BiPAP, transition to nasal cannula as tolerated. now on 2 liters. Try to wean off
Component of congestive heart failure/valvular heart disease with possible PNA. Empiric Rocephin.
Appreciate pulmonary input
#Acute on chronic heart failure with reduced ejection fraction around 50%.� Known to have stage II diastolic dysfunction also
c/w Lasix to 40 mg twice daily.
Negative troponin.
Low BP with low HR, cut back on Coreg to continue with Lasix.
Monitor renal function, electrolyte, weight and input/output
Continue with carvedilol but added holding parameters
Held amlodipine and irbesartan to allow use of aggressive diuretic therapy for now
He sees Dr Knight.
Echocardiogram 10/04/23 showed left ventricular ejection fraction 57%, mild to moderate MR, moderate to severe aortic stenosis with some progression. Estimated pulmonary artery pressure 56 mmHg.
Appreciate cardiology input
# Constipation
c/w bowel regimen. Had BM.
Obese abdomen. US no acute findings
No abd pain. No abd tenderness on exam.
# Valvular heart disease
Some progression of aortic disease noted on echocardiogram 10/04/23.
History of mild mitral stenosis, moderate mitral regurgitation, moderate aortic regurgitation, moderate to severe aortic stenosis with LVOT of 2.0 cm/valve area is 0.9 cm2.� Mild tricuspid regurgitation with trace pulmonic regurgitation
# Chronic blood loss anemia/ �heme positive stool/acute blood loss anemia is related to/associated with/due to/exacerbated by Xarelto
- s/p 2 units ( last admission) and Hb around� 7 today, will give another one unit of blood.
- anemia workup shows iron deficiency; IV iron was given, finish the course in the hospital
-Already on Xarelto
-Status post upper and lower endoscopic evaluation that showed diverticulosis, severe hemorrhoids and small polyps. Might not tolerate systemic AC if continuous GI blood loss.
Patient reported an appointment with hematology for erythropoietin injection
Appreciate hematology input
# Chronic kidney disease stage IIIb
Creatinine stable at baseline
Monitor while on diuretic
Appreciate nephrology input
# Essential HTN
- hold ARB/CCB, c/w Coreg but lower the dose & Lasix.
HLD - statin
#hx of parox Afib
- c/w� Xarelto
hx of PE
hx of prostate Cancer
Total time spent to see the patient, examine the patient on the floor, review data and lab results, discuss treatment plan with patient, nursing staff around 55 minutes
Anticipated Discharge: 24 - 48 hours
Subjective/Interval History
-
Date of Service: October 07, 2023
No sob
No fevers
He still has cough
Objective Data
-
Labs:
Laboratory Results
10/07/23
05:17
WBC 4.0 L
Hgb 7.0 L
Hct 21.8 L
Plt Count 163 D
Sodium 139
Potassium 3.8
Chloride 104
Carbon Dioxide 25
BUN 58 H
Creatinine 1.8 H
Glucose 102 H
Calcium 8.2 L
Vital Signs:
Vital Signs
Temp Pulse Resp BP Pulse Ox
97.7 F 62 18 122/55 94
10/07/23 07:36 10/07/23 08:15 10/07/23 07:36 10/07/23 08:15 10/07/23 07:36
I&O
10/06/23 10/07/23 10/08/23
06:59 06:59 06:59
Intake Total 750 / 750 480 / 480
Output Total 450 / 450 600 / 600
Balance 300 / 300 -120 / -120
--- NOTE | 2023-10-07 09:57 | W.PN.ONC ---
Addendum entered and electronically signed by Nate De Leon, 10/07/23 12:26:
Agree with the impression and plan as outlined by ERNIE . Patient examined and chart reviewed independently. Has symptoms of PND and significant ejection murmur. Just completed an additional unit of packed red blood cell monitor H&H response.
Anticipate outpatient erythropoietin support. Patient has had parenteral iron.
Original Note:
Today's Communication / Plan
-
10/07 Hgb 7.0, Hct 21.8
Transfuse as needed to maintain Hgb >7
1 unit of blood this AM
CBC w/ diff daily
Continue IV iron, B12, folate
Supportive care
Wait to initiate erythropoietin�as an outpatient per Dr. De Leon
Follow up with [facility] is arranged 10/[address] Montiel in [place] at 15:00.
Impression
Impression
Acute on chronic anemia
Recent GIB
Chronic anticoagulation (Xarelto)
Iron deficiency
CKD3b
CHF exacerbation
Hx prostate cancer
Hx PE
Subjective/Objective
Subjective/Objective
Patient is laying in bed with blood transfusing. He denies pain or evidence of bleeding at this time.
Vital Signs:
Vital Signs
Temp Pulse Resp BP Pulse Ox
98.6 F 61 18 134/54 94
10/07/23 09:42 10/07/23 09:42 10/07/23 09:42 10/07/23 09:42 10/07/23 07:36
physical exam:
aaox3, pallor
HRR, lungs diminished, 2L nasal cannula
abdomen distended, hypoactive bowel sounds
+2 bilateral LE edema
Lab Results:
Laboratory Data
WBC 4.0 10^3/uL (4.8-10.8) L 10/07/23 05:17
Hgb 7.0 g/dL (13.0-18.0) L 10/07/23 05:17
Plt Count 163 10^3/uL (130-400) D 10/07/23 05:17
eGFR 37.35 10/07/23 05:17
--- NOTE | 2023-10-07 11:04 | VNURNOTE ---
Home health liaison met with patient and son Mason to discuss [facility] services, visit scheduling/frequency, homebound status and pet policy. Patient understands home visits will be 1-2 times to assess and teach medical managment. Patient aware visiting
nurse will contact him for start of care within 1-2 days after discharge from . Brochure given with contact information. [facility] Referral completed in care port
--- NOTE | 2023-10-07 13:10 | W.PN.NEPH.PH ---
Today's Communication / Plan
-
Cr likely at new baseline
CTM
Assessment/Plan
-
IMP:
Acute on chronic heart failure p EF
Valvular heart disease
History of mild mitral stenosis, moderate mitral regurgitation, moderate aortic regurgitation, moderate to severe aortic stenosis with LVOT of 2.0 cm/valve area is 0.9 cm2.� Mild tricuspid regurgitation with trace pulmonic regurgitation
Chronic blood loss anemia-recent PRBC and neg EGD and C scope
Chronic kidney disease stage IIIb cr 1.5-1.7
Essential HTN
HLD
hx of parox Afib
hx of PE
hx of prostate Cancer
h/o PPM
PLan:
Recent admit with anemia from GIB s/p PRBC now returns with sob and CHF flare, pt was not following FR
CKD-cr 1.8 seem close to baseline 1.5-1.7
he felt to have cardiorenal etiology, bland UA
cont IV lasix 40 BID, wt improving
O2 requirement decreasing, now on 2L
maintain FR 48 ounces/day
anemia managed by heme on IV fe infusion
BP are stable, cont home meds holding ARB, CCB
echo results noted and eval of based on the clinical course
cx with no growth thus far
-
-
Date of Service: October 07, 2023
CC / HPI / ROS
-
Chief Complaint:
CKD
History of Present Illness:
cr slightly up at 1.8, bicarb 25
back to regular floor
hb at 7
Review of Systems:
no cp
sob improving , edema better
Labs
-
Labs:
WBC 4.0 10^3/uL (4.8-10.8) L 10/07/23 05:17
RBC 2.39 10^6/uL (4.70-6.10) L 10/07/23 05:17
Hgb 7.0 g/dL (13.0-18.0) L 10/07/23 05:17
Hct 21.8 % (39.0-52.0) L 10/07/23 05:17
Plt Count 163 10^3/uL (130-400) D 10/07/23 05:17
Sodium 139 mmol/L (135-145) 10/07/23 05:17
Potassium 3.8 mmol/L (3.5-5.1) 10/07/23 05:17
Chloride 104 mmol/L (98-107) 10/07/23 05:17
Carbon Dioxide 25 mmol/L (22-30) 10/07/23 05:17
BUN 58 mg/dl (9-20) H 10/07/23 05:17
Creatinine 1.8 mg/dL (0.7-1.3) H 10/07/23 05:17
eGFR 37.35 10/07/23 05:17
Glucose 102 mg/dl (70-99) H 10/07/23 05:17
Calcium 8.2 mg/dl (8.4-10.2) L 10/07/23 05:17
Ybc-N-Aiuwetgkszi Pept 6350 pg/ml 10/04/23 05:51
Albumin 3.3 g/dl (3.5-5.0) L 10/04/23 05:51
Physical Exam
-
Vital Signs:
Vital Signs
Temp Pulse Resp BP Pulse Ox
98.6 F 62 16 127/51 94
10/07/23 11:56 10/07/23 11:56 10/07/23 11:56 10/07/23 11:56 10/07/23 07:36
Cardiovascular:: Regular rate and rhythm
Respiratory:: Bilateral: Coarse
Lung Excursion:: Normal
Abdomen:: Nontender and Soft
Bowel Sounds:: Normal
Extremity Edema:: +1: Bilateral:
López Catheter: No
[2023-10-07] MEDS: FERRLECIT 110 MG IV (13:27)
--- NOTE | 2023-10-07 14:43 | W.PN.PUL3 ---
Today's Communication / Plan
-
O2 protocol
D/c BPAP
Reconsult prn
Assessment
-
Assessment
83-year-old male with complex medical history including PE 2012, atrial fibrillation on chronic anticoagulation, prostate cancer, pulmonary hypertension, recent admission for anemia requiring transfusion with endoscopy with polyps, hemorrhoids, now
presents with paroxysmal nocturnal dyspnea/orthopnea, admitted 10/04/2023. Transferred to higher level of care due to progressive shortness of breath, PND, requiring NIV. We are asked to help from a pulmonary standpoint 10/05/2023
Acute hypoxic respiratory insufficiency
Saturation in the 80s on 2 L, requiring NIV
Bilateral interstitial changes
Suspected acute congestive heart failure
Elevated proBNP
Cannot rule out interstitial pneumonitis
Questionable left pleuroparenchymal process
Small left pleural effusion
Fever
Anemia
Required transfusion
Endoscopy with polyps, hemorrhoids
Valvular disease
Moderate MR, severe , 1.1 cm�
Pulm hypertension, PA pressure 56 (was 35 06/2023)
Normal RV function
Chronic kidney disease, creatinine 1.9
Conditions present prior to admission
Hypertension/hyperlipidemia
Atrial fibrillation on chronic anticoagulation
History of pacemaker
Prostate cancer 2004
History of PE 2012
[id number] history of smoking quit
Suspected sleep apnea
Records suggest witnessed apnea in the past
Plan/recommendations
O2 protocol
Currently on O2 2L, comfortable at rest
Did not require BPAP last night, scanty use this adm, will d/c
PT session: 150 ft on 2L, POx 94% down to 88% but recovered quickly with diaphragmatic breathing
Blood cultures negative to date from 10-04
COVID/flu negative
Clinical course suggests congestive heart failure rather than pneumonia or AECOPD, he has responded well to cardiac regimen
Patient describes 2 episodes now of paroxysmal nocturnal dyspnea
Suspected patchy bibasilar infiltrate, left pleuroparenchymal process but no clear clinical evidence of pneumonia
On empiric ceftriaxone, now discontinued 10-07, ID following
Nocturnal oximetry 10-05, significantly abnormal, 83% on room air required 2 L. Despite being on 2 L, persistent hypoxia noted though improved
Will plan for home oxygen at night at 2L, will benefit from eventual outpatient sleep apnea evaluation and treatment given multiple comorbidities
Past h/o heavy smoking, no formal pulm eval or dx of COPD, not on home O2 or BDs
Continue prn DNs
On chronic rivaroxaban for h/o AFib and PE, continue
Valvular disease noted: mild to mod MR, mod to severe , mild to mod AI
LVEF 57%. Normal RV size and function
Cardiology following, diuresing, IV furosemide 40 mg IV bid
Patient admits to dietary indiscretion (cheese, deli meats, tomato sauce), with no concern regarding salt intake
Dietary discretion reviewed
Noted asymptomatic drop in Hgb down to 7, received 1U PRBCs early 10-07
Abdominal distention noted. Patient states this is chronic
Abdominal ultrasound with fatty liver, otherwise patent hepatic and portal vessels
Given history of thromboembolic disease, may require eventual VQ scan if shortness of breath, hypoxia persists
This can be done as an outpatient. Patient would benefit from pulmonary follow-up
Disposition efforts
Reconsult prn
Subjective Data
-
Date of Service:
Date of Service: October 07, 2023
Chief Complaint: Pulmonary Follow Up
Subjective:
No major events reported
Transferred from ICU
Did not require BPAP last night
PT session: 150 ft on 2L, POx 94% down to 88% but recovered quickly with diaphragmatic breathing
Review of Systems
General: Fever (n), Sweats (n), Chills (n) and Satisfactory Appetite
HEENT: Epistaxis (n) and Dysphagia (n)
Cardiopulmonary: Dyspnea on Exertion, Cough (trace), Sputum Production (n), Wheezing (n), Chest Pain, Edema (KAUSHIK chronic) and Hemoptysis (n)
GI: Abdominal Pain (n), Nausea (n) and Vomiting (n)
Neuro: Weakness
Objective Data
Data Reviewed
Vital Signs / I&O / Oxygen:
Vital Signs
Temp Pulse Resp BP Pulse Ox
98.6 F 62 16 127/51 94
10/07/23 11:56 10/07/23 11:56 10/07/23 11:56 10/07/23 11:56 10/07/23 07:36
Intake and Output
10/06/23 10/07/23 10/08/23
06:59 06:59 06:59
Intake Total 750 / 750 480 / 480 250 / 250
Output Total 450 / 450 600 / 600
Balance 300 / 300 -120 / -120 250 / 250
SaO2 94
Nasal Cannula flow liters per 2
minute
Physical Exam
General: Respiratory Distress (n at rest on O2)
HEENT: Normocephalic and Moist Mucous Membranes
Cardiovascular: Regular Rhythm, Murmur (n) and Peripheral Edema (mild KAUSHIK)
Respiratory: Wheeze (n), Crackles (subtle basilar), Rhonchi (n), Non-Labored Respirations and Stridor (n)
GI: Soft, Non Distended and Non Tender
Neurology: Awake, AO x 3 and No Motor Deficits
Skin: Dry
Labs/Micro/Reports
Lab Data
10/07/23 05:17
10/07/23 05:17
Microbiology
10/04/23 16:51 Blood/Venous Blood Culture - Preliminary
No Growth in 48 hours- Final report to follow
10/04/23 16:01 Blood/Venous Blood Culture - Preliminary
No Growth in 48 hours- Final report to follow
10/04/23 16:02 Nasal Swab Influenza Types A & B (ANNA) - Final
Negative for Influenza A & B, NAAT
Negative results must be combined with clinical observations
and patient history.
Nucleic Acid Amplification test (NAAT)performed on the
[employer] platform.
[2023-10-07] MEDS: CLARITIN 10 MG PO (14:55)
--- NOTE | 2023-10-07 15:50 | W.PN.ID1 ---
Date of Service
Date of Service: October 07, 2023
Today's Communication
D/C abx and observe.
Assessment / Plan
Fever
- resolved
Normal white count
BENITO
Exacerbation of CHF
A-fib
CHF
HTN
Dyslipidemia
Aortic stenosis
Hx PE
Hx prostate cancer
Recommendations:
Influenza and COVID testing negative
At present, no convincing evidence of pneumonia. Source of prior fevers not immediately clear.
Patient remains afebrile.
D/C further abx and observe.
����������������������������������������������������������
Chief Complaint
-: Fever and Pneumonia
Subjective / Review of Systems
Review of Systems: No Fever, No Chills, Cough (minimal) and No Sputum Production
Vital Signs / Physical Exam
Vital Signs
Vital Signs
Temp Pulse Resp BP Pulse Ox
98.6 F 64 16 127/53 94
10/07/23 11:56 10/07/23 15:38 10/07/23 11:56 10/07/23 15:38 10/07/23 07:36
Physical Exam
Constitutional: No Acute Distress, Comfortable and Non-toxic
Eyes: No Conjunctival Hemorrhage and Sclera Anicteric
Cardiovascular: S1/S2 and Murmur; Negative S3/S4
Pulmonary: Non Labored; Negative Wheezes or Rales
Gastrointestinal: Soft, Non Tender and Non Distended
Extremities: Edema; Negative Cyanosis or Erythema
Neurological: Awake and Alert
Psychological: Calm
Objective Data
Lab Data
Lab Results
10/07/23 05:17
10/07/23 05:17
Estimated Creat Clear 38 ml/min 10/07/23 05:17
Total Bilirubin 0.8 mg/dl (0.2-1.3) 10/04/23 05:51
AST 26 U/L (17-59) 10/04/23 05:51
ALT 19 U/L (0-50) 10/04/23 05:51
Alkaline Phosphatase 78 U/L (38-126) 10/04/23 05:51
Most recent labs reviewed.
Micro Results:
10/04/23 16:51 Blood Culture - Preliminary
Blood/Venous No Growth in 48 hours- Final report to follow
10/04/23 16:01 Blood Culture - Preliminary
Blood/Venous No Growth in 48 hours- Final report to follow
10/04/23 16:02 Influenza Types A & B (ANNA) - Final
Nasal Swab Negative for Influenza A & B, NAAT
Negative results must be combined with clinical observations
and patient history.
Nucleic Acid Amplification test (NAAT)performed on the
[employer] platform.
Imaging:
10/05/2023 CXR (portable): No convincing focal infiltrates. Stable trace bilateral pleural effusions. No visualized pneumothorax. Mild to moderate CHF slightly progressed from prior exam.
--- NOTE | 2023-10-07 16:39 | W.PN.CARDCBS ---
Today's Communication / Plan
-
IV diuresis
follow cre
follow Hgb s.p transfusion and outpt erythopoietin
wean o2
hoping home next 48-72hrs
outpt cath and TAVR eval-he should have outpt bmp next week and then could arrange for outpt [facility] with Dr. Cohen
Impression / Plan
-
.
PCP: Dr. Forrest
Application Spec: Dr. Knight
Impression:
Presented with SOB
Recent admission 09/27 - 09/29/2023 for anemia, GIB
Acute hypoxic respiratory insufficiency
Acute HFpEF
Acute on chronic RI, CKD 3b
Iron deficiency anemia
Paroxysmal atrial fibrillation
s/p PVI 07/18/2009
s/p redo PVI 06/26/2010
Chronic Xarelto anticoagulation
Complete heart block s/p Medtronic Micra PPM 06/09/2017
h/o B/L PE 12/2012
HTN
HLD
Mod-Severe
Mod AI
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
Echo 05/31/2023: EF 50-55%, mild cLVH, stage II diastolic dysfunction, mild MS with peak/mean gradients 17/6 mmHg, moderate MR, moderate-severe w/ peak/mean gradients 43-28 mmHg, SHELLEY 0.9 cm2, moderate AI, mild TR, estimated PAP 35 mmHg
Echo 10/04/2023: EF 57%, mild to mod MR, mod to severe with peak/mean AV grad 79/45 mmHg, the SHELLEY 1.1 cm2.� Mild to mod AR, mild to mod TR, PASP 56 mmHg, pleural effusion, dilated IVC
�Mild to moderate tricuspid regurgitation. Estimated pulmonary artery pressure
�
Plan:
Remains volume overloaded on exam, agree with IV lasix for further diuresis, appreciate nephrology input. i suspect home in next 48-72hrs. somewhat deconditioned
Wean O2 as able
Follow daliy weights and renal function
Recent echo and finding of severe discussed with patient
Plan for outpatient work up regarding TAVR. Ideally renal insufficiency can improve close to baseline as he will need a diagnostic cath and then CT scan with dye.
Remains on Xarelto 15 mg for hx of Afib and PE.
Remains on Coreg.
Amlodipine and irbesartan on hold - BP is reasonable, could consider adding back stepwise as an outpatient
I agree with erythropoietin injection as outpt to improve Hgb. Appreciate GI workup for anemia
Additional hx: Baldomero has a history of A-fib status post PVI in 2008 and 2009 on chronic Xarelto, complete heart block status post Medtronic pacer in 2016, pulmonary embolus in 2012, hypertension, CKD 3b, moderate to severe aortic stenosis, moderate
aortic insufficiency, moderate MR.� He presents with worsening shortness of breath, weight gain, lower extremity edema.� He is admitted for acute diastolic CHF.� He feels better since admission.� He remains on 2 L of oxygen.
HPI: Romaine is an 83 year old male with PMH of paroxysmal atrial fibrillation, PPM, PE, , and nonobstructive CAD who presented to [facility] for evaluation of worsening SOB. He was recently admitted at with anemia and received 2 units PRBCs. He
states with this he noted gradual weight gain and increased LE edema. Then over the past few days he had worsening SOB and this AM his symptoms significantly worsened and he came to ER for evaluation. On arrival, he was noted to have evidence of
acute heart failure on exam with CXR noting pulmonary edema with proBNP 6350. He was also hypoxic and placed on 2L NC. He was started on IV lasix and has had good urine output. He takes lasix 80mg daily at home and reports he has been compliant. He
also notes his weight is up from his recent baseline. He reports he fell down the stairs in 06/2023 and afterwards had diminished appetite, with his weight dropping to approximately 205-206lbs. Since his last admission, his weight has been slowly
creeping back up. At this time, he reports he is feeling well overall and his SOB is improving. Still has significant LE edema.
Progress Note - Application Spec
Subjective
Date of Service: October 07, 2023
feeling a little better today from a dyspnea standpoint
Objective
Labs:
10/07/23 05:17
10/07/23 05:17
Labs
Hgb 7.0 g/dL (13.0-18.0) L 10/07/23 05:17
Hct 21.8 % (39.0-52.0) L 10/07/23 05:17
Plt Count 163 10^3/uL (130-400) D 10/07/23 05:17
Sodium 139 mmol/L (135-145) 10/07/23 05:17
Potassium 3.8 mmol/L (3.5-5.1) 10/07/23 05:17
BUN 58 mg/dl (9-20) H 10/07/23 05:17
Creatinine 1.8 mg/dL (0.7-1.3) H 10/07/23 05:17
Glucose 102 mg/dl (70-99) H 10/07/23 05:17
Vital Signs and I&O:
Vital Signs
Temp Pulse Resp BP Pulse Ox
98.7 F 64 16 127/53 94
10/07/23 15:00 10/07/23 15:38 10/07/23 15:00 10/07/23 15:38 10/07/23 15:00
Vital Signs
Temp Pulse Resp BP Pulse Ox
98.7 F 64 16 127/53 94
10/07/23 15:00 10/07/23 15:38 10/07/23 15:00 10/07/23 15:38 10/07/23 15:00
Intake & Output
10/05/23 10/06/23 10/07/23 10/08/23
06:59 06:59 06:59 06:59
Intake Total 840 / 840 750 / 750 480 / 480 250 / 250
Output Total 2150 / 2150 450 / 450 600 / 600
Balance -1310 / -1310 300 / 300 -120 / -120 250 / 250
Physical Exam
Physical Exam
heent ncat
cor irreg irreg
2-3/6 OSIEL
mild cachexia
pallor
lungs clear to auscultation
abd soft nt nd
trace ext edema
aao x3
[2023-10-07] MEDS: XARELTO 15 MG PO (16:49)
--- NOTE | 2023-10-07 16:55 | CM ---
Continue IV diuresis.
PT OT recommended VN
[facility] accepted patient is care port.
Watch for home oxygen needs.
PLAN Home with [facility]
[2023-10-08 03:44] VITALS: BP 130/55
[2023-10-08 05:38] LABS: Hematocrit 24.5 % (39.0-52.0); Hemoglobin 8.1 g/dL (13.0-18.0); Mean Corp Hgb Conc. 33.1 g/dL (33.0-37.0); Mean Corpuscular Hgb 29.1 pg (27.0-31.0); Mean Corpuscular Volume 88.1 fL (80.0-94.0); Mean Platelet Volume 11.9 fL (7.4-10.4); Platelet Count 180 10^3/uL (130-400); Red Blood Cell Count 2.78 10^6/uL (4.70-6.10); Red Cell Dist. Width 15.9 % (11.5-14.5); White Blood Cell Count 5.1 10^3/uL (4.8-10.8)
[2023-10-08 05:52] LABS: Blood Urea Nitrogen 50 mg/dl (9-20); Calcium 8.3 mg/dl (8.4-10.2); Carbon Dioxide 25 mmol/L (22-30); Chloride 106 mmol/L (98-107); Estimated Creatinine Clearance 41 ml/min; Glucose 98 mg/dl (70-99); Potassium 4.2 mmol/L (3.5-5.1); Sodium 141 mmol/L (135-145); eGFR 46.48
[2023-10-08 06:00] VITALS: BMI 29.7
[2023-10-08 07:00] VITALS: BP 144/62
[2023-10-08] MEDS: MIRALAX 17 GRAMS PO (07:58)
[2023-10-08] MEDS: FOLVITE 1 MG PO (07:58)
[2023-10-08] MEDS: CLARITIN 10 MG PO (07:58)
[2023-10-08] MEDS: COREG 3.125 MG PO ×2 (07:59→20:51)
[2023-10-08] MEDS: VITAMIN B-12 1000 MCG PO (08:01)
[2023-10-08] MEDS: LASIX 40 MG IV ×2 (08:02→15:37)
--- NOTE | 2023-10-08 10:19 | CM ---
Patient states that he was uncertain about discharge and CM provided IMM for patient to review. Patient has been accepted for [facility] and may need home O2 pending testing. Patient indicated that he did not have a preference when CM reviewed options for
home O2 providers. CM will follow for discharge planning needs.
Plan; home with [facility]; watch for home O2 needs
--- NOTE | 2023-10-08 10:35 | W.PN.HOSP.TC ---
Today's Communication/Plan
-
likely dc in am
Assessment / Plan
Assessment / Plan
Physical Exam
General: No Apparent Distress, Comfortable and Appears Chronically Ill
HEENT: Moist mucous membranes and Atraumatic
Respiratory: Rales mostly left lower
Cardiac: S1/S2 and Murmur
GI: Soft, Non Tender and normal contour per patient.
Rectal: No Maroon Stools
Genito-urinary: No costovertebral tender
Musculoskeletal: Edema, Left Lower Extremity and Edema, Right Lower Extremity
Skin: Warm; No Jaundice
Neuro: AO x 3 and No Motor Deficits; No Nonfocal/grossly intact, Slurred Speech or Facial Droop
Psych: Calm and Intact Judgment/Insight
83 years old male presented with shortness of breath and was found to have congestive heart.
#Likely acute bronchitis,
Chest x ray did not show definitive infiltrate/ opacity as pneumonia.
He seems to do well after short course IV Abx
no coughing,
Will try to wean off O2, he seems to use incentive spirometry well.
SaO2 on RA this morning was 92 %, will ask respiratory to do home O2 evaluation.
Negative COVID and flu
Blood cultures on 10/04 no growth
Urine not UTI
No abd pain or diarrhea reported.
Appreciate pulmonary and ID help
# Acute hypoxic respiratory failure requiring noninvasive ventilatory with BiPAP
Off BiPAP, transitioned to nasal cannula as tolerated. now on 2 liters. Try to wean off
Component of congestive heart failure/valvular heart disease with possible PNA. Empiric Rocephin was given after hypoxia & fever.
Appreciate pulmonary & ID input
#Acute on chronic heart failure with reduced ejection fraction around 50%.� Known to have stage II diastolic dysfunction also
c/w Lasix to 40 mg twice daily.
Negative troponin.
Continues to loose weight in hospital.
Low BP with low HR, cut back on Coreg to continue with Lasix.
Monitored renal function, electrolyte, weight and input/output
Continue with carvedilol, added holding parameters
Held amlodipine and irbesartan to allow use of aggressive diuretic therapy for now
He sees Dr Knight.
Echocardiogram 10/04/23 showed left ventricular ejection fraction 57%, mild to moderate MR, moderate to severe aortic stenosis with some progression. Estimated pulmonary artery pressure 56 mmHg.
Appreciate cardiology input
# Constipation
c/w bowel regimen. Had BM.
Obese abdomen. US no acute findings
No abd pain. No abd tenderness on exam.
# Valvular heart disease
Some progression of aortic disease noted on echocardiogram 10/04/23.
History of mild mitral stenosis, moderate mitral regurgitation, moderate aortic regurgitation, moderate to severe aortic stenosis with LVOT of 2.0 cm/valve area is 0.9 cm2.� Mild tricuspid regurgitation with trace pulmonic regurgitation
# Chronic blood loss anemia/ �heme positive stool/acute blood loss anemia is related to/associated with/due to/exacerbated by Xarelto
- s/p 2 units ( last admission) and Hb around� 7 today, will give another one unit of blood.
- anemia workup shows iron deficiency; IV iron was given, finish the course in the hospital
-Already on Xarelto
-Status post upper and lower endoscopic evaluation that showed diverticulosis, severe hemorrhoids and small polyps. Might not tolerate systemic AC if continuous GI blood loss.
Patient reported an appointment with hematology for erythropoietin injection
Appreciate hematology input
# Chronic kidney disease stage IIIb
Creatinine stable at baseline and improved with better cardiac output
Monitor while on diuretic
Appreciate nephrology input
# Essential HTN
- hold ARB/CCB, c/w Coreg but lowered the dose to continue IV Lasix.
HLD - statin
#hx of parox Afib
No palpitations
- c/w� Xarelto
hx of PE
hx of prostate Cancer
Discussed with nurse if patient can get private room to provide better night sleep
Total time spent to see the patient, examine the patient on the floor, review data and lab results, discuss treatment plan with patient, nursing staff around 55 minutes
Anticipated Discharge: Within 24 hours
Subjective/Interval History
-
Date of Service: October 08, 2023
Doing well, no sob
did not sleep well, roommate was awake
Objective Data
-
Labs:
Laboratory Results
10/08/23
05:11
WBC 5.1
Hgb 8.1 L
Hct 24.5 L
Plt Count 180
Sodium 141
Potassium 4.2
Chloride 106
Carbon Dioxide 25
BUN 50 H
Creatinine 1.5 H
Glucose 98
Calcium 8.3 L
Vital Signs:
Vital Signs
Temp Pulse Resp BP Pulse Ox
98.2 F 75 18 144/62 97
10/08/23 07:00 10/08/23 07:59 10/08/23 07:00 10/08/23 07:59 10/08/23 07:00
I&O
10/07/23 10/08/23 10/09/23
06:59 06:59 06:59
Intake Total 480 / 480 1170 / 1170
Output Total 600 / 600 2275 / 2275
Balance -120 / -120 -1105 / -1105
[2023-10-08 11:00] VITALS: BP 130/52
--- NOTE | 2023-10-08 13:01 | W.PN.CARDCBS ---
Addendum entered and electronically signed by Robert Andres MD 10/08/23 19:18:
Was off oxygen today, but now back on, still with shortness of breath
Allergies: Lisinopril and sotalol
Outpatient medicines: Amlodipine 10 mg a day, carvedilol 6.25 twice daily, furosemide 80 mg daily, irbesartan 150 mg daily, simvastatin 20 mg at bedtime, Xarelto 15 mg a day
Current medications: Xarelto 15 mg daily, furosemide 40 mg IV twice daily, carvedilol 3.125 mg IV twice daily,
PMH/PSH/SH/FH: Reviewed
Review of systems: Negative except as described above
130/52, pulse 65, respiratory 17, afebrile, sats 82%, weight is 96.6 kg, down 0.4 kg, hospital 3.9 kg
Ultrasound of the abdomen, medical renal disease, chronic hepatocellular disease, likely fatty liver
Chest x-ray October 13, vascular congestion, cardiomegaly, question micro
Hemoglobin 8.1, had been 7, BUN/creatinine 50/1.5, potassium 4.2
Impression:
Recent admission 09/27 - 09/29/2023 for anemia, GIB
Acute hypoxic respiratory insufficiency
Acute HFpEF
Acute on chronic RI, CKD 3b
Iron deficiency anemia
atrial fibrillation -suspect permanent
s/p PVI 07/18/2009
s/p redo PVI 06/26/2010Chronic Xarelto anticoagulation
Complete heart block s/p Medtronic Micra PPM 06/09/2017
h/o B/L PE 12/2012
HTN
HLD
Mod-Severe
Mod AI
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
Echo 05/31/2023: EF 50-55%, mild cLVH, stage II diastolic dysfunction, mild MS with peak/mean gradients 17/6 mmHg, moderate MR, moderate-severe w/ peak/mean gradients 43-28 mmHg, SHELLEY 0.9 cm2, moderate AI, mild TR, estimated PAP 35 mmHg
Echo 10/04/2023: EF 57%, mild to mod MR, mod to severe with peak/mean AV grad 79/45 mmHg, the SHELLEY 1.1 cm2.� Mild to mod AR, mild to mod TR, PASP 56 mmHg, pleural effusion, dilated IVC
�Mild to moderate tricuspid regurgitation. Estimated pulmonary artery pressure
Plan:
He still seems volume overloaded. Creatinine is stable at 1.5. Furosemide was 80 mg a day prior to admission, current furosemide is 40 mg IV twice daily. Will increase furosemide to 80 mg IV twice daily and hopefully transition to oral on Wednesday,
follow renal function. Will probably need additional furosemide beyond 80 mg orally daily at discharge.
Would hold amlodipine and irbesartan, continue low-dose carvedilol.
Will eventually need outpatient catheterization when stable.
Will need follow-up BMP as outpatient as outpatient.
Original Note:
Today's Communication / Plan
-
Transition to oral Lasix 80 mg in the next 24 hours
Continue to hold amlodipine and irbesartan
BMP 1 week
Outpatient cardiology follow-up arranged
Impression / Plan
-
.
PCP: Dr. Forrest
Field Property Loss Specialist: Dr. Knight
Impression:
Presented with SOB
Recent admission 09/27 - 09/29/2023 for anemia, GIB
Acute hypoxic respiratory insufficiency
Acute HFpEF
Acute on chronic RI, CKD 3b
Iron deficiency anemia
Paroxysmal atrial fibrillation
s/p PVI 07/18/2009
s/p redo PVI 06/26/2010
Chronic Xarelto anticoagulation
Complete heart block s/p Medtronic Micra PPM 06/09/2017
h/o B/L PE 12/2012
HTN
HLD
Mod-Severe
Mod AI
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
Echo 05/31/2023: EF 50-55%, mild cLVH, stage II diastolic dysfunction, mild MS with peak/mean gradients 17/6 mmHg, moderate MR, moderate-severe w/ peak/mean gradients 43-28 mmHg, SHELLEY 0.9 cm2, moderate AI, mild TR, estimated PAP 35 mmHg
Echo 10/04/2023: EF 57%, mild to mod MR, mod to severe with peak/mean AV grad 79/45 mmHg, the SHELLEY 1.1 cm2.� Mild to mod AR, mild to mod TR, PASP 56 mmHg, pleural effusion, dilated IVC
�Mild to moderate tricuspid regurgitation. Estimated pulmonary artery pressure
�
Plan:
Acute on chronic heart failure with preserved EF
weight down at least 15 lbs with IV lasix for further diuresis, appreciate nephrology input. Consider transition to oral lasix in next 24 hours. Was on Lasix 80 mg as outpt
creat improving 1.8-1>.5
Wean O2 as abl, still on 2 lpm
.BMP in 1 week
Recent echo and finding of severe discussed with patient
Plan for outpatient work up regarding TAVR. Ideally renal insufficiency can improve close to baseline as he will need a diagnostic cath and then CT scan with dye.
Remains on Xarelto 15 mg for hx of Afib and PE.
Remains on Coreg.
Amlodipine and irbesartan on hold - BP is reasonable, could consider adding back reduced dose irbesartan as outpt if renal function allows or low dose of amlodipine as outpt
Empiric Rocephin was given after hypoxia & fever and possible bronchitis. Improved
Iron deficiency anemia. Hgb 8.1 Continue erythropoietin injection as outpt to improve Hgb. Appreciate GI workup for anemia
Patient's and daughter at bedside. Answered questions
Additional hx: Baldomero has a history of A-fib status post PVI in 2008 and 2009 on chronic Xarelto, complete heart block status post Medtronic pacer in 2016, pulmonary embolus in 2012, hypertension, CKD 3b, moderate to severe aortic stenosis, moderate
aortic insufficiency, moderate MR.� He presents with worsening shortness of breath, weight gain, lower extremity edema.� He is admitted for acute diastolic CHF.� He feels better since admission.� He remains on 2 L of oxygen.
HPI: Romaine is an 83 year old male with PMH of paroxysmal atrial fibrillation, PPM, PE, , and nonobstructive CAD who presented to [facility] for evaluation of worsening SOB. He was recently admitted at with anemia and received 2 units PRBCs. He
states with this he noted gradual weight gain and increased LE edema. Then over the past few days he had worsening SOB and this AM his symptoms significantly worsened and he came to ER for evaluation. On arrival, he was noted to have evidence of
acute heart failure on exam with CXR noting pulmonary edema with proBNP 6350. He was also hypoxic and placed on 2L NC. He was started on IV lasix and has had good urine output. He takes lasix 80mg daily at home and reports he has been compliant. He
also notes his weight is up from his recent baseline. He reports he fell down the stairs in 06/2023 and afterwards had diminished appetite, with his weight dropping to approximately 205-206lbs. Since his last admission, his weight has been slowly
creeping back up. At this time, he reports he is feeling well overall and his SOB is improving. Still has significant LE edema.
Progress Note - Field Property Loss Specialist
Subjective
Date of Service: October 08, 2023
Patient seen and examined. Patient's family ( and daughter) at bedside. Patient reports he is feeling better however still does not feel 100%. Still with occasional cough and shortness of breath still requiring low-dose oxygen. Reports edema
has improved.
Objective
Labs:
10/08/23 05:11
10/08/23 05:11
Labs
Hgb 8.1 g/dL (13.0-18.0) L 10/08/23 05:11
Hct 24.5 % (39.0-52.0) L 10/08/23 05:11
Plt Count 180 10^3/uL (130-400) 10/08/23 05:11
Sodium 141 mmol/L (135-145) 10/08/23 05:11
Potassium 4.2 mmol/L (3.5-5.1) 10/08/23 05:11
BUN 50 mg/dl (9-20) H 10/08/23 05:11
Creatinine 1.5 mg/dL (0.7-1.3) H 10/08/23 05:11
Glucose 98 mg/dl (70-99) 10/08/23 05:11
Vital Signs and I&O:
Vital Signs
Temp Pulse Resp BP Pulse Ox
97.8 F 64 18 130/52 97
10/08/23 11:00 10/08/23 11:00 10/08/23 11:00 10/08/23 11:00 10/08/23 11:00
Vital Signs
Temp Pulse Resp BP Pulse Ox
97.8 F 64 18 130/52 97
10/08/23 11:00 10/08/23 11:00 10/08/23 11:00 10/08/23 11:00 10/08/23 11:00
Intake & Output
10/06/23 10/07/23 10/08/23 10/09/23
06:59 06:59 06:59 06:59
Intake Total 750 / 750 480 / 480 1170 / 1170
Output Total 450 / 450 600 / 600 2275 / 2275
Balance 300 / 300 -120 / -120 -1105 / -1105
Physical Exam
Physical Exam
GEN: No distress, awake, Ox3
HEENT: supple, anicteric, mmm
LUNGS: CTA, no wheezes/rales
CV: Reg, S1/S2, 3/6 harsh radiating murmur
ABD: soft, BS+, NT/ND
EXT: No edema with Tubigrip's and tach
NEURO: Gross non-focal
SKIN: No rash, warm, dry, pink
[2023-10-08] MEDS: FERRLECIT 110 MG IV (13:58)
[2023-10-08 15:00] VITALS: BP 130/52
--- NOTE | 2023-10-08 15:05 | W.PN.ID1 ---
Date of Service
Date of Service: October 08, 2023
Today's Communication
Sign off.
Assessment / Plan
Fever
- resolved
Normal white count
BENITO
Exacerbation of CHF
A-fib
CHF
HTN
Dyslipidemia
Aortic stenosis
Hx PE
Hx prostate cancer
Recommendations:
Influenza and COVID testing negative
At present, no convincing evidence of pneumonia. Source of prior fevers not immediately clear.
Patient remains afebrile.
Doing well off of antibiotics.
Little more to offer from an Infectious Diseases standpoint.
Will see again at your request.
����������������������������������������������������������
Chief Complaint
-: Fever and Pneumonia
Subjective / Review of Systems
Review of Systems: No Fever and No Chills
Vital Signs / Physical Exam
Vital Signs
Vital Signs
Temp Pulse Resp BP Pulse Ox
97.8 F 64 18 130/52 97
10/08/23 11:00 10/08/23 11:00 10/08/23 11:00 10/08/23 11:00 10/08/23 11:00
Physical Exam
Constitutional: No Acute Distress, Comfortable and Non-toxic
Eyes: Sclera Anicteric
Pulmonary: Non Labored
Gastrointestinal: Non Distended
Neurological: Awake and Alert
Psychological: Calm
Objective Data
Lab Data
Lab Results
10/08/23 05:11
10/08/23 05:11
Estimated Creat Clear 41 ml/min 10/08/23 05:11
Total Bilirubin 0.8 mg/dl (0.2-1.3) 10/04/23 05:51
AST 26 U/L (17-59) 10/04/23 05:51
ALT 19 U/L (0-50) 10/04/23 05:51
Alkaline Phosphatase 78 U/L (38-126) 10/04/23 05:51
Most recent labs reviewed.
Micro Results:
10/04/23 16:51 Blood Culture - Preliminary
Blood/Venous No Growth in 72 hours- Final report to follow
10/04/23 16:01 Blood Culture - Preliminary
Blood/Venous No Growth in 72 hours- Final report to follow
10/04/23 16:02 Influenza Types A & B (ANNA) - Final
Nasal Swab Negative for Influenza A & B, NAAT
Negative results must be combined with clinical observations
and patient history.
Nucleic Acid Amplification test (NAAT)performed on the
[employer] platform.
Imaging:
10/05/2023 CXR (portable): No convincing focal infiltrates. Stable trace bilateral pleural effusions. No visualized pneumothorax. Mild to moderate CHF slightly progressed from prior exam.
--- NOTE | 2023-10-08 15:18 | W.PN.NEPH.PH ---
Today's Communication / Plan
-
diuresis per cards
Assessment/Plan
-
IMP:
Acute on chronic heart failure p EF
Valvular heart disease
History of mild mitral stenosis, moderate mitral regurgitation, moderate aortic regurgitation, moderate to severe aortic stenosis with LVOT of 2.0 cm/valve area is 0.9 cm2.� Mild tricuspid regurgitation with trace pulmonic regurgitation
Chronic blood loss anemia-recent PRBC and neg EGD and C scope
Chronic kidney disease stage IIIb cr 1.5-1.7
Essential HTN
HLD
hx of parox Afib
hx of PE
hx of prostate Cancer
h/o PPM
PLan:
Recent admit with anemia from GIB s/p PRBC now returns with sob and CHF flare, pt was not following FR
CKD-cr better at 1.5 (baseline 1.5-1.7)
he felt to have cardiorenal etiology, bland UA
cont IV lasix 40 BID today and plan to transition to po lasix per cards , wt improving
wean O2 as able
maintain FR 48 ounces/day
anemia managed by heme s/p IV fe infusion
BP are stable, cont home meds holding ARB, CCB
echo results noted and eval of to start outpt
monitor renal function carefully during this eval
d/c plan
d/w and daughter in detail
-
-
Date of Service: October 08, 2023
CC / HPI / ROS
-
Chief Complaint:
CKD
History of Present Illness:
cr slightly better at 1.5, bicarb 25
hb up at 8.1
wt decreasing
Review of Systems:
no cp
sob improving , edema better
sleeping reclined
Labs
-
Labs:
WBC 5.1 10^3/uL (4.8-10.8) 02/23/24 05:11
RBC 2.78 10^6/uL (4.70-6.10) L 10/08/23 05:11
Hgb 8.1 g/dL (13.0-18.0) L 10/08/23 05:11
Hct 24.5 % (39.0-52.0) L 10/08/23 05:11
Plt Count 180 10^3/uL (130-400) 10/08/23 05:11
Sodium 141 mmol/L (135-145) 10/08/23 05:11
Potassium 4.2 mmol/L (3.5-5.1) 10/08/23 05:11
Chloride 106 mmol/L (98-107) 10/08/23 05:11
Carbon Dioxide 25 mmol/L (22-30) 10/08/23 05:11
BUN 50 mg/dl (9-20) H 10/08/23 05:11
Creatinine 1.5 mg/dL (0.7-1.3) H 10/08/23 05:11
eGFR 46.48 10/08/23 05:11
Glucose 98 mg/dl (70-99) 10/08/23 05:11
Calcium 8.3 mg/dl (8.4-10.2) L 10/08/23 05:11
Cme-A-Zaqfjevsyie Pept 6350 pg/ml 10/04/23 05:51
Albumin 3.3 g/dl (3.5-5.0) L 10/04/23 05:51
Physical Exam
-
Vital Signs:
Vital Signs
Temp Pulse Resp BP Pulse Ox
97.8 F 64 18 130/52 97
10/08/23 11:00 10/08/23 11:00 10/08/23 11:00 10/08/23 11:00 10/08/23 11:00
Cardiovascular:: Regular rate and rhythm
Respiratory:: Bilateral: Rales (at bases)
Lung Excursion:: Normal
Abdomen:: Nontender and Soft
Extremity Edema:: +1: Bilateral:
López Catheter: No
[2023-10-08] MEDS: XARELTO 15 MG PO (17:53)
[2023-10-08 19:20] VITALS: BP 129/51
[2023-10-08 23:25] VITALS: BP 117/45
[2023-10-09 03:05] VITALS: BP 120/51
[2023-10-09 06:00] VITALS: BMI 29.3
[2023-10-09 06:38] LABS: Blood Urea Nitrogen 39 mg/dl (9-20); Calcium 8.2 mg/dl (8.4-10.2); Carbon Dioxide 26 mmol/L (22-30); Chloride 109 mmol/L (98-107); Estimated Creatinine Clearance 47 ml/min; Glucose 91 mg/dl (70-99); Sodium 140 mmol/L (135-145); eGFR 55.19
[2023-10-09 07:30] VITALS: BP 132/56
--- NOTE | 2023-10-09 08:30 | W.PN.CARDCBS ---
Today's Communication / Plan
-
Has diuresed well and creatinine down to 1.3.
Wean oxygen.
Would be okay with discharge today on Lasix 80 mg in the a.m. and 40 mg in the p.m.
Continue to hold irbesartan and amlodipine as outpatient
Will arrange follow-up and neck step would be cardiac catheterization.
Impression / Plan
-
.
PCP: Dr. Forrest
Wheel Inspector: Dr. Knight
Impression:
Presented with SOB
Recent admission 09/27 - 09/29/2023 for anemia, GIB
Acute hypoxic respiratory insufficiency
Acute HFpEF
Acute on chronic RI, CKD 3b
Iron deficiency anemia
Paroxysmal atrial fibrillation
s/p PVI 07/18/2009
s/p redo PVI 06/26/2010
Chronic Xarelto anticoagulation
Complete heart block s/p Medtronic Micra PPM 06/09/2017
h/o B/L PE 12/2012
HTN
HLD
Mod-Severe
Mod AI
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
Echo 05/31/2023: EF 50-55%, mild cLVH, stage II diastolic dysfunction, mild MS with peak/mean gradients 17/6 mmHg, moderate MR, moderate-severe w/ peak/mean gradients 43-28 mmHg, SHELLEY 0.9 cm2, moderate AI, mild TR, estimated PAP 35 mmHg
Echo 10/04/2023: EF 57%, mild to mod MR, mod to severe with peak/mean AV grad 79/45 mmHg, the SHELLEY 1.1 cm2.� Mild to mod AR, mild to mod TR, PASP 56 mmHg, pleural effusion, dilated IVC
�Mild to moderate tricuspid regurgitation. Estimated pulmonary artery pressure
�
Plan:
Acute on chronic heart failure with preserved EF
Has diuresed well. Wean oxygen. From cardiac standpoint okay to transition to oral Lasix and discharge. Would recommend Lasix 80 mg in the a.m. and 40 mg in the p.m. Creatinine is improved and down to 1.3.
Recent echo and finding of severe discussed with patient
Plan for outpatient work up regarding TAVR. Will establish follow-up and then schedule for cardiac cath.
Remains on Xarelto 15 mg for hx of Afib and PE.
Remains on Coreg.
Amlodipine and irbesartan on hold -will continue to hold as outpt. Blood pressure has been marginal.
Empiric Rocephin was given after hypoxia & fever and possible bronchitis. Improved
Iron deficiency anemia. Hgb 8.1 Continue erythropoietin injection as outpt to improve Hgb. Appreciate GI workup for anemia
Patient's and daughter at bedside. Answered questions
Additional hx: Baldomero has a history of A-fib status post PVI in 2008 and 2009 on chronic Xarelto, complete heart block status post Medtronic pacer in 2016, pulmonary embolus in 2012, hypertension, CKD 3b, moderate to severe aortic stenosis, moderate
aortic insufficiency, moderate MR.� He presents with worsening shortness of breath, weight gain, lower extremity edema.� He is admitted for acute diastolic CHF.� He feels better since admission.� He remains on 2 L of oxygen.
HPI: Romaine is an 83 year old male with PMH of paroxysmal atrial fibrillation, PPM, PE, , and nonobstructive CAD who presented to [facility] for evaluation of worsening SOB. He was recently admitted at with anemia and received 2 units PRBCs. He
states with this he noted gradual weight gain and increased LE edema. Then over the past few days he had worsening SOB and this AM his symptoms significantly worsened and he came to ER for evaluation. On arrival, he was noted to have evidence of
acute heart failure on exam with CXR noting pulmonary edema with proBNP 6350. He was also hypoxic and placed on 2L NC. He was started on IV lasix and has had good urine output. He takes lasix 80mg daily at home and reports he has been compliant. He
also notes his weight is up from his recent baseline. He reports he fell down the stairs in 06/2023 and afterwards had diminished appetite, with his weight dropping to approximately 205-206lbs. Since his last admission, his weight has been slowly
creeping back up. At this time, he reports he is feeling well overall and his SOB is improving. Still has significant LE edema.
Progress Note - Wheel Inspector
Subjective
Date of Service: October 09, 2023
Is diuresing well and weight is down. Still remains on oxygen. No chest pains
Objective
Labs:
10/08/23 05:11
10/09/23 05:17
Labs
Hgb 8.1 g/dL (13.0-18.0) L 10/08/23 05:11
Hct 24.5 % (39.0-52.0) L 10/08/23 05:11
Plt Count 180 10^3/uL (130-400) 10/08/23 05:11
Sodium 140 mmol/L (135-145) 10/09/23 05:17
Potassium 4.0 mmol/L (3.5-5.1) 10/09/23 05:17
BUN 39 mg/dl (9-20) H 10/09/23 05:17
Creatinine 1.3 mg/dL (0.7-1.3) 10/09/23 05:17
Glucose 91 mg/dl (70-99) 10/09/23 05:17
Vital Signs and I&O:
Vital Signs
Temp Pulse Resp BP Pulse Ox
98.3 F 63 16 132/56 96
10/09/23 07:30 10/09/23 07:30 10/09/23 07:30 10/09/23 07:30 10/09/23 07:30
Vital Signs
Temp Pulse Resp BP Pulse Ox
98.3 F 63 16 132/56 96
10/09/23 07:30 10/09/23 07:30 10/09/23 07:30 10/09/23 07:30 10/09/23 07:30
Intake & Output
02/10/08/23 10/09/23 10/10/23
06:59 06:59 06:59 06:59
Intake Total 480 / 480 1170 / 1170 930 / 930
Output Total 600 / 600 2275 / 2275 2550 / 2550
Balance -120 / -120 -1105 / -1105 -1620 / -1620
Physical Exam
Physical Exam
GEN: No distress, awake, Ox3
HEENT: supple, anicteric, mmm
LUNGS: CTA, no wheezes/rales
CV: Reg, S1/S2, 3/6 syst LSB,
ABD: soft, BS+, NT/ND
EXT: trace edema
NEURO: Gross non-focal
SKIN: No rash
[2023-10-09] MEDS: MIRALAX 17 GRAMS PO (08:59)
[2023-10-09] MEDS: CLARITIN 10 MG PO (08:59)
[2023-10-09] MEDS: COREG 3.125 MG PO (09:00)
[2023-10-09] MEDS: VITAMIN B-12 1000 MCG PO (09:00)
[2023-10-09] MEDS: LASIX 80 MG IV (09:01)
[2023-10-09] MEDS: FOLVITE 1 MG PO (09:01)
--- NOTE | 2023-10-09 10:18 | W.PN.HOSP.TC ---
Today's Communication/Plan
-
dc
Assessment / Plan
Assessment / Plan
Physical Exam
General: No Apparent Distress, Comfortable and Appears Chronically Ill
HEENT: Moist mucous membranes and Atraumatic
Respiratory: Rales mostly left lower
Cardiac: S1/S2 and Murmur
GI: Soft, Non Tender and normal contour per patient.
Rectal: No Maroon Stools
Genito-urinary: No costovertebral tender
Musculoskeletal: Edema, Left Lower Extremity and Edema, Right Lower Extremity
Skin: Warm; No Jaundice
Neuro: AO x 3 and No Motor Deficits; No Nonfocal/grossly intact, Slurred Speech or Facial Droop
Psych: Calm and Intact Judgment/Insight
83 years old male presented with shortness of breath and was found to have congestive heart.
#Likely acute bronchitis,
resolved.
Chest x ray did not show definitive infiltrate/ opacity as pneumonia.
He seemed to do well after short course IV Abx
no coughing,
Home O2 yesterday did not qualify him for O2, will repeat today
He uses incentive spirometry well.
Negative COVID and flu
Blood cultures on 10/04 no growth
Urine not UTI
No abd pain or diarrhea reported.
Appreciate pulmonary and ID help
# Acute hypoxic respiratory failure requiring noninvasive ventilatory with BiPAP
Off BiPAP, transitioned to nasal cannula as tolerated. now on 2 liters. Try to wean off
Component of congestive heart failure/valvular heart disease with possible PNA. Empiric Rocephin was given after hypoxia & fever.
Appreciate pulmonary & ID input
#Acute on chronic heart failure with reduced ejection fraction around 50%.� Known to have stage II diastolic dysfunction also
c/w Lasix to 40 mg twice daily.
Negative troponin.
Continues to loose weight in hospital.
Low BP with low HR, cut back on Coreg to continue with Lasix.
Monitored renal function, electrolyte, weight and input/output
Continue with carvedilol, added holding parameters
Held amlodipine and irbesartan to allow use of aggressive diuretic therapy for now
He sees Dr Knight.
Vice President Of Instruction recommended to c/w high dose Lasix at home (Lasix 80 mg in the a.m. and 40 mg in the p.m) and to continue holding other BP medications.
Echocardiogram 10/04/23 showed left ventricular ejection fraction 57%, mild to moderate MR, moderate to severe aortic stenosis with some progression. Estimated pulmonary artery pressure 56 mmHg.
Appreciate cardiology input
# Constipation
c/w bowel regimen. Had BM.
Obese abdomen. US no acute findings
No abd pain. No abd tenderness on exam.
# Valvular heart disease
Some progression of aortic disease noted on echocardiogram 10/04/23.
History of mild mitral stenosis, moderate mitral regurgitation, moderate aortic regurgitation, moderate to severe aortic stenosis with LVOT of 2.0 cm/valve area is 0.9 cm2.� Mild tricuspid regurgitation with trace pulmonic regurgitation
# Chronic blood loss anemia/ �heme positive stool/acute blood loss anemia is related to/associated with/due to/exacerbated by Xarelto
Stable HGB around 8
- s/p 2 units ( last admission) and one unit of blood this admission.
- anemia workup shows iron deficiency; IV iron was given, finished the course in the hospital
-Already on Xarelto
-Status post upper and lower endoscopic evaluation that showed diverticulosis, severe hemorrhoids and small polyps. Might not tolerate systemic AC if continuous GI blood loss.
Patient reported an appointment with hematology for erythropoietin injection
Appreciate hematology input
# Chronic kidney disease stage IIIb
Creatinine stable at baseline and improved with better cardiac output
Monitor while on diuretic
Appreciate nephrology input
# Essential HTN
- Stopped ARB/CCB, c/w Coreg but lowered the dose to continue high dose oral Lasix.
HLD - statin
#hx of parox Afib
No palpitations
- c/w� Xarelto
hx of PE
hx of prostate Cancer
Total discharge time spent to see the patient, examine the patient on the floor, review data and lab results, discuss discharge plan with patient, nursing staff around 67 minutes
Anticipated Discharge: Today
Subjective/Interval History
-
Date of Service: October 09, 2023
No chest pain
No sob
Would like to go home
Objective Data
-
Labs:
Laboratory Results
10/09/23
05:17
Sodium 140
Potassium 4.0
Chloride 109 H
Carbon Dioxide 26
BUN 39 H
Creatinine 1.3
Glucose 91
Calcium 8.2 L
Vital Signs:
Vital Signs
Temp Pulse Resp BP Pulse Ox
98.3 F 63 16 132/56 96
10/09/23 07:30 10/09/23 07:30 10/09/23 07:30 10/09/23 07:30 10/09/23 07:30
I&O
10/08/23 10/09/23 10/10/23
06:59 06:59 06:59
Intake Total 1170 / 1170 930 / 930
Output Total 2275 / 2275 2550 / 2550
Balance -1105 / -1105 -1620 / -1620
[2023-10-09 11:20] VITALS: BP 135/60
--- NOTE | 2023-10-09 11:59 | CM ---
CM following re: discharge planning.
Reviewed pt's chart, met with pt. Pt's spouse and pt's son at bedside.
According to pt is medically stable to be discharged and pt will need VN services and home Oxygen.
Respiratory ambulatory pulse ox test noted, pt desaturated to 88% during ambulation. CM placed an order for home Oxygen with [facility], spoke to joon Caputo, pt's clinical with a script faxed to [facility] at [phone]. Per joon Caputo, a
portable oxygen tank will be delivered to pt's room by 1:00 p.m. today and a concentrator will be delivered to pt's home when pt is home.
Referral to VN noted.
Discharge order noted. Both pt and his spouse are aware, expressed their agreement with discharge and expressed their appreciation for coordinating discharge plan. IMM reviewed, placed in chart, pt has a copy.
Please fax discharge instructions to [facility]N at [phone].
D/c plan: home with VN, home Oxygen that will be managed by [facility] and family support. Spouse to transport.
No other discharge needs identified.
--- NOTE | 2023-10-09 12:18 | W.DCSUMMARY ---
Discharge Summary
Discharge Data
Date of Admission: 10/04/23
Date of Discharge: 10/09/23
-
Pending Results: No
Hospital Course
83 years old male presented with shortness of breath and weight gain. Patient reported that he was struggling with shortness of breath, mostly exertional over the last few days. Upon admission, he was hypoxic. He was started on nasal oxygen.
Chest x-ray did not show definitive infiltrate or opacity as evidence of pneumonia. Creatinine on admission 1.8. He did not have leukocytosis. He was admitted to telemetry floor. He was started on intravenous Lasix to treat acute on chronic
heart failure with reduced ejection fraction. Patient had worsening hypoxia and developed fever. He was transferred to intensive care unit and was started on noninvasive bilevel positive airway pressure device ( BiPAP). He was also started on
empiric antibiotic for possible superimposed infection. Blood culture did not show any growth. His urine test was not consistent with infection. He did not have gastrointestinal symptoms. He had negative COVID and flu screening test. He was
able to come off BiPAP. He was kept on nasal oxygen. Nocturnal oxygen monitoring showed hypoxia during sleep. Patient was followed by pulmonary doctor who recommended outpatient follow-up. Patient had echocardiogram that showed left ventricular
ejection fraction 57%, mild to moderate mitral regurgitation, moderate to severe aortic stenosis with some progression. Patient was followed by arabic teacher. He was maintained on high-dose diuretic therapy. Amlodipine and irbesartan were held in
favor of higher dose of diuretic to avoid hypotension. Patient was maintained on carvedilol. Oxygen saturation remained stable. Home oxygen evaluation showed need for oxygen at home. Patient was seen by infectious disease doctor and he did not
need further antibiotics. Patient remained hemodynamically stable. Creatinine upon discharge 1.3. Patient was going to follow-up with cardiology for further management. He was discharged in a stable condition.
Discharge Plan
-
Patient Disposition: Home with Home Care
Discharge Diagnosis/Procedures: Acute bronchitis, finished short course of antibiotic
Acute hypoxic respiratory failure, resolving. Nocturnal hypoxia noted. He will need pulmonary follow-up for sleep study.
Acute heart failure with a preserved ejection fraction.
Moderate to severe aortic stenosis: You are seen by arabic teacher. We recommend to stop amlodipine and losartan continue on high-dose Lasix and follow with cardiology for further recommendations. Take 80 mg of Lasix in a.m. and 40 mg of Lasix in
p.m. around 4-5 PM. Do blood work in 1 week to check kidney function and potassium level.
Condition: Fair
Diet: Low Sodium
Blood Work: BMP 1 week prior to cardiology follow up (order on chart)
Referrals:
Thai Jose MD [Active] - in one month
(6 weeks (PFT/walk test)
CXR in 4 weeks)
Soco Calixto PA-C [Specified Professional Personl] - 10/22/23 1:40 pm (You have cardiology follow up with Soco Calixto PA-C on October 21 at 1:40 pm in [address] in the [place]. If you are unable to make this appointment please call [phone] to
reschedule)
Daniel Forrest MD [Family Provider] -
Prescriptions:
New
loratadine 10 mg Tablet
10 mg PO DAILY Qty: 30 0RF
furosemide [Lasix] 40 mg tablet
40 mg PO .dinner Qty: 30 0RF
cyanocobalamin (vitamin B-12) 1,000 mcg Tablet
1,000 mcg PO DAILY Qty: 30 0RF
folic acid 1 mg Tablet
1 mg PO DAILY Qty: 30 0RF
Continued
simvastatin 20 MG tablet
20 mg PO HS
furosemide 80 MG tablet
80 mg PO DAILY
Sleep Aid (doxylamine) 25 MG tablet
25 mg PO HS
carvedilol 3.125 MG tablet
6.25 mg PO BID
ascorbic acid (vitamin C) [Vitamin C] 1,000 mg Tablet
1,000 mg PO DAILY
calcium carbonate-vitamin D3 [Calcium 600 + D(3)] 600 mg-10 mcg (400 unit) Tablet
1 tab PO DAILY
Xarelto 15 mg Tablet
15 mg PO QPM
Hold Instructions: Resume on 09/30/23.
Discontinued
amlodipine 10 MG tablet
10 mg PO DAILY
irbesartan 150 MG tablet
150 mg PO DAILY
Discharge Orders:
Discharge Patient (As Directed); Ordered 10/09/23
Ordered By: Josep Dockery
Discharge Date and Time
Discharge Date/Time: 10/09/23 13:24
--- NOTE | 2023-10-09 15:59 | W.PN.NEPH.PH ---
Today's Communication / Plan
-
ok for d/c
Assessment/Plan
-
IMP:
Acute on chronic heart failure p EF
Valvular heart disease
History of mild mitral stenosis, moderate mitral regurgitation, moderate aortic regurgitation, moderate to severe aortic stenosis with LVOT of 2.0 cm/valve area is 0.9 cm2.� Mild tricuspid regurgitation with trace pulmonic regurgitation
Chronic blood loss anemia-recent PRBC and neg EGD and C scope
Chronic kidney disease stage IIIb cr 1.5-1.7
Essential HTN
HLD
hx of parox Afib
hx of PE
hx of prostate Cancer
h/o PPM
PLan:
Recent admit with anemia from GIB s/p PRBC now returns with sob and CHF flare, pt was not following FR
CKD-cr better at 1.3 (baseline 1.5-1.7)
he felt to have cardiorenal etiology, bland UA
plan po lasix per cards , wt improving
wean O2 as able
maintain FR 48 ounces/day
anemia managed by heme s/p IV fe infusion, f/u heme outpt
BP are stable, cont home meds holding ARB, CCB
echo results noted and eval of to start outpt
monitor renal function carefully during this eval, moving forward may benefit preventive IVF if vol status allows for contrast studies
d/c today
BMP next week ans f/u cards, nephro
d/w
-
-
Date of Service: October 09, 2023
CC / HPI / ROS
-
Chief Complaint:
CKD
History of Present Illness:
cr slightly better at 1.3, bicarb 26
hb up at 8.1, no cbc today
wt decreasing
Review of Systems:
no cp
sob improving , edema better
Labs
-
Labs:
WBC 5.1 10^3/uL (4.8-10.8) 10/08/23 05:11
RBC 2.78 10^6/uL (4.70-6.10) L 10/08/23 05:11
Hgb 8.1 g/dL (13.0-18.0) L 10/08/23 05:11
Hct 24.5 % (39.0-52.0) L 10/08/23 05:11
Plt Count 180 10^3/uL (130-400) 10/08/23 05:11
Sodium 140 mmol/L (135-145) 10/09/23 05:17
Potassium 4.0 mmol/L (3.5-5.1) 10/09/23 05:17
Chloride 109 mmol/L (98-107) H 10/09/23 05:17
Carbon Dioxide 26 mmol/L (22-30) 10/09/23 05:17
BUN 39 mg/dl (9-20) H 10/09/23 05:17
Creatinine 1.3 mg/dL (0.7-1.3) 10/09/23 05:17
eGFR 55.19 10/09/23 05:17
Glucose 91 mg/dl (70-99) 10/09/23 05:17
Calcium 8.2 mg/dl (8.4-10.2) L 10/09/23 05:17
Aud-W-Feirybrojfi Pept 6350 pg/ml 10/04/23 05:51
Albumin 3.3 g/dl (3.5-5.0) L 10/04/23 05:51
Physical Exam
-
Vital Signs:
Vital Signs
Temp Pulse Resp BP Pulse Ox
97.8 F 80 16 135/60 97
10/09/23 11:20 10/09/23 11:20 10/09/23 11:20 10/09/23 11:20 10/09/23 11:20
Cardiovascular:: Regular rate and rhythm
Respiratory:: Bilateral: CTA
Lung Excursion:: Normal
Abdomen:: Nontender and Soft
Extremity Edema:: +1: Bilateral:
López Catheter: No
== END 2023-10-09 13:24 | disposition home health service (06) | DRG 291 ==
LOC: 3 WEST ACU 08:33
PROVIDERS: Emergency Medicine; Nurse Practitioner Family; Student in an Organized Health Care Education/Training Program; ADMITTING PHYSICIAN Internal Medicine; CONSULT PHYSICIAN Internal Medicine; CONSULT PHYSICIAN Internal Medicine Hematology & Oncology; EMERGENCY PHYSICIAN Emergency Medicine; FAMILY PHYSICIAN Internal Medicine; OTHER PHYSICIAN Internal Medicine Cardiovascular Disease; OTHER PHYSICIAN Internal Medicine Critical Care Medicine; OTHER PHYSICIAN Internal Medicine Infectious Disease
DX: I13.0 Hypertensive heart and chronic kidney disease with heart failure and stage 1 through stage 4 chronic kidney disease, or unspecified chronic kidney disease (principal); I50.43 Acute on chronic combined systolic (congestive) and diastolic (congestive) heart failure; J96.01 Acute respiratory failure with hypoxia; J18.9 Pneumonia, unspecified organism; D68.32 Hemorrhagic disorder due to extrinsic circulating anticoagulants; D50.0 Iron deficiency anemia secondary to blood loss (chronic); N18.32 Chronic kidney disease, stage 3b; I08.3 Combined rheumatic disorders of mitral, aortic and tricuspid valves; I48.0 Paroxysmal atrial fibrillation; Z79.01 Long term (current) use of anticoagulants; Z11.52 Encounter for screening for COVID-19; J20.9 Acute bronchitis, unspecified; Z87.891 Personal history of nicotine dependence
CPT/HCPCS: 71045; 71046; 76700; 80048; 80053; 81003; 82607; 82668; 82746; 83010; 83521; 83615; 83735; 83880; 84484; 85025; 85027; 85045; 86850; 86900; 86901; 86920; 87040; 87502; 87811; 93005; 93306; 94640; 94660; 94762; 96374; 97110; 97116; 97162; 97166; 99285; J2916; P9016

== ENCOUNTER → 2023-10-14 11:38 | Outpatient (REF) | payer MEDICARE, SELFPAY ==
[2023-10-14 14:31] LABS: Blood Urea Nitrogen 42 mg/dl (9-20); Carbon Dioxide 34 mmol/L (22-30); Chloride 105 mmol/L (98-107); Glucose 103 mg/dl (70-99); Potassium 4.7 mmol/L (3.5-5.1); Sodium 142 mmol/L (135-145); eGFR 50.49
== END ==
LOC: REG 11:38
PROVIDERS: ATTENDING PHYSICIAN Internal Medicine Cardiovascular Disease
DX: I50.30 Unspecified diastolic (congestive) heart failure (principal)
CPT/HCPCS: 36415; 80048

== ENCOUNTER → 2023-10-22 15:10 | Outpatient (REF) | payer MEDICARE, SELFPAY ==
[2023-10-22 15:45] LABS: % Basophils 0.3 % (0-2); % Eosinophils 0.1 % (0-6); % Immature Granulocytes 0.6 % (0-0.5); % Lymphocytes 5.7 % (20.5-51.1); % Monocytes 1.4 % (1.7-9.3); % Neutrophils 91.9 % (42.2-75.2); Absolute Lymphocytes 0.4 10^3/uL (1.2-3.4); Absolute Monocytes 0.1 10^3/uL (0.1-0.6); Absolute Neutrophils 6.4 10^3/uL (1.4-6.5); Hematocrit 32.1 % (39.0-52.0); Hemoglobin 10.2 g/dL (13.0-18.0); Mean Corp Hgb Conc. 31.8 g/dL (33.0-37.0); Mean Corpuscular Hgb 28.4 pg (27.0-31.0); Mean Corpuscular Volume 89.4 fL (80.0-94.0); Mean Platelet Volume 11.7 fL (7.4-10.4); Nucleated Red Blood Cells % 0 % (-); Platelet Count 351 10^3/uL (130-400); Red Blood Cell Count 3.59 10^6/uL (4.70-6.10); Red Cell Dist. Width 15.4 % (11.5-14.5)
[2023-10-22 16:06] LABS: Blood Urea Nitrogen 53 mg/dl (9-20); Calcium 9.6 mg/dl (8.4-10.2); Carbon Dioxide 30 mmol/L (22-30); Chloride 103 mmol/L (98-107); Glucose 135 mg/dl (70-99); Potassium 4.8 mmol/L (3.5-5.1); Sodium 139 mmol/L (135-145)
== END ==
LOC: REG 15:10
PROVIDERS: ATTENDING PHYSICIAN Physician Assistant Medical; FAMILY PHYSICIAN Internal Medicine
DX: I50.30 Unspecified diastolic (congestive) heart failure (principal); D50.8 Other iron deficiency anemias
CPT/HCPCS: 36415; 80048; 85025

== ENCOUNTER → 2023-10-29 07:26 | Outpatient (REF) | payer MEDICARE, SELFPAY ==
[2023-10-29 09:30] LABS: Blood Urea Nitrogen 55 mg/dl (9-20); Calcium 9.2 mg/dl (8.4-10.2); Carbon Dioxide 28 mmol/L (22-30); Chloride 101 mmol/L (98-107); Glucose 90 mg/dl (70-99); Potassium 4.2 mmol/L (3.5-5.1); Sodium 141 mmol/L (135-145); eGFR 43.02
== END ==
LOC: REG 07:26
PROVIDERS: ATTENDING PHYSICIAN Internal Medicine Cardiovascular Disease
DX: N17.9 Acute kidney failure, unspecified (principal)
CPT/HCPCS: 36415; 80048

== ENCOUNTER 2023-11-01 06:21 | Day surgery (SDC) | payer MEDICARE, SELFPAY ==
[2023-11-01] VITALS (12 sets, daily range): BP systolic 112–143; BP diastolic 45–57; BMI 27.3
[2023-11-01] MEDS: NSS 266 ML IV (07:08)
[2023-11-01] MEDS: LOW STRENGTH ASPIRIN 324 MG PO (07:17)
[2023-11-01] MEDS: NSS 1000 IV (08:47)
--- NOTE | 2023-11-01 11:18 | CONSULT.STRU ---
Consultation
-
Date/Time Consultation Requested: 11/01/2023 0930
Date/Time Consultation Performed: 11/01/2023 1030
Requesting Provider: Dr. Robert Cohen
Performing Provider: ERNIE Brown
Reason for Consultation: Aortic stenosis/ TAVR evaluation
Patient History
Physicians
Family Physician: Dr. Cas Forrest
Outpatient Loan Closer: Dr. Fred Knight
Primary Loan Closer: Dr. Fred Knight
History of Present Illness
Mr. Hernández is a very pleasant 83yo male s/p cardiac catheterization today via right radial approach by Dr. Cohen. He is recovering nicely following his recent hospital admissions for acute anemia as well as acute on chronic heart failure in September.
His weight is down at about 30 pounds since his hospital admissions. He has been compliant with his prescribed Lasix, fluid restriction and low sodium diet. He appears euvolemic and is resting comfortably on examination today. He is aware he has
aortic stenosis and states his valve is bicuspid. He has been experiencing fatigue and DOUGLASS for years. Most recently he has noted orthopnea and has an adjustable bed and sleep elevated. His recent echocardiogram is notable for PG/M/5, SHELLEY 1.1,
Aortic peak velocity 4.58 cm/s. 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 He also has chronic anemia and was seen by Dr. De Leon of [facility] [place]. He did require 3 units of packed RBCs to help with
his anemia. His Hgb last week is improved and he is continuing to follow with [facility] with plans for erythropoietin infusions.
He has permanent atrial fibrillation and is 100% ventricular paced on EKG dated 10/04/2023. He has 6 years left on his battery per his last cardiology office visit note. He is on low-dose Xarelto to reduce risk of thromboembolic event. Will need to
hold the Xarelto for at least 48 hours prior to his TAVR and temporarily treat with aspirin.
Reviewed the pathophysiology of aortic stenosis with the patient, his and his daughter. Explained the treatment options of SAVR and TAVR. Explained the TAVR evaluation process including follow up BMP, CT TAVR scan, CT surgery consult and Heart
Team discussion. Provided with script for BMP next week, script and appointment for CT TAVR chest only, Consult appointment with Dr. Figueroa and a copy of the TAVR education booklet with contact information. Allowed for and answered questions.
Past Medical History
Past Medical History: Atrial Fib (C2V: 4 on Xarelto), CAD (non-obstructive), Cancer (h/o prostate s/p prostatectomy), CHF (acute on chronic), DOUGLASS, HTN, Renal Insufficiency (CKB stage 3), Valvular Disease (-bicuspid, mild-moderate AI, mild-moderate
MR, mild to moderate TR) and Other
h/o pulmonary embolism >10 years ago
h/o first degree av block
h/o bradycardia
colon polyps
Past Surgical History
Past Surgical History: Orthopedic (left knee surgery, right shoulder surgery), Tonsilectomy, Urological (Prostatectomy) and Other (leadless PPM 05/2017, Ablation, Cardioversion, Resected adenomatous tissue ileocecal valve)
Dental History
Regular dental care 3x/year- [facility]
Family History
Mother: at Age
Father: at Age
Social History
Alcohol: None
Drug: None
Tobacco: Former Smoker
Personal:
Living: With Spouse
Employment: Not Employed
Allergies
Allergy/AdvReac Type Severity Reaction Status Date / Time
lisinopril [Lisinopril] Allergy Intermediate cough Verified 11/01/23 06:55
sotalol [Sotalol] Allergy Intermediate bradycardia Verified 11/01/23 06:55
candesartan Allergy Unknown Verified 11/01/23 06:55
Home Medications
Medication Instructions Recorded Confirmed Type
simvastatin 20 mg tablet 20 mg PO QPM High Cholesterol 09/27/09 11/01/23 History
doxylamine succinate 25 mg tablet 25 mg PO HS sleep 06/08/17 11/01/23 History
(Sleep Aid (doxylamine))
ascorbic acid (vitamin C) 1,000 mg 1,000 mg PO DAILY Supplement 09/27/23 11/01/23 History
tablet (Vitamin C)
calcium carbonate 600 mg-vitamin 1 tab PO DAILY Supplement 09/27/23 11/01/23 History
D3 10 mcg (400 unit) tablet
(Calcium 600 + D(3))
rivaroxaban 15 mg tablet (Xarelto) 15 mg PO QPM Blood Clot 09/27/23 11/01/23 History
Prevention/Tx
cyanocobalamin (vitamin B-12) 1,000 mcg PO DAILY #30 tabs 10/09/23 11/01/23 Rx
1,000 mcg tablet
folic acid 1 mg tablet 1 mg PO DAILY #30 tabs 10/09/23 11/01/23 Rx
carvedilol 6.25 mg tablet 6.25 mg PO BID 11/01/23 11/01/23 History
furosemide 40 mg tablet 60 mg PO DAILY 11/01/23 11/01/23 History
loratadine 10 mg tablet 10 mg PO QPM 11/01/23 11/01/23 History
STS%
STS %: 2.87%
Review of Systems
-
History Source: Patient and Family
General: Reports Weight Loss (approximately 30 pounds with diuresis and diet changes) and Fatigue
HEENT: Reports No Symptoms
Respiratory: Reports DOUGLASS and Other (Sleeps elevated in adjustable bed to help breathing.)
Cardiac: Reports Chest Pain (with severe anemia, improved since transfusion) and Edema (bilateral LE, improved with diuresis)
Abdomen/GI: Reports No Symptoms
: Reports No Symptoms
Musculoskeletal: Reports No Symptoms
Skin: Reports No Symptoms
Neurological: Reports No Symptoms
Vascular: Reports No Symptoms
Physical Exam
Vital Signs
Temp 97.8 F 11/01/23 06:51
Temp route: Oral 11/01/23 06:31
Pulse 60 11/01/23 09:30
Resp Rate 18 11/01/23 06:31
Blood pressure 126/47 11/01/23 09:28
Blood pressure extremity used: Left upper arm 11/01/23 06:31
Position: Lying 11/01/23 06:31
MAP (cuff-Leonor Monitor) 73 11/01/23 09:28
SaO2 99 11/01/23 09:30
Oxygen Mode of Delivery Room air 11/01/23 06:31
Can the patient verbally communicate their pain? Yes 11/01/23 09:36
Actual Weight 88.7 kg 11/01/23 06:30
Body Mass Index (BMI) 27.3 11/01/23 06:30
Labs
10/29/2023
H/H: 10.2/32.1
Platelets: [id number]
BUN/Creat: 55/1.6
GFR: 43.02
Diagnostic Studies
10/04/2023 Echocardiogram:
CONCLUSIONS
�Normal left ventricular wall thickness. Left ventricle is mildly dilated.
�Normal left ventricular systolic function. Left ventricular ejection fraction
�is 57%.
�Mild to moderate mitral regurgitation.
�Moderate to severe aortic stenosis. Peak/mean gradients across the aortic valve
�are 79/45 mmHg, the SHELLEY =1.1 cm2.� Mild to moderate aortic regurgitation.
�Mild to moderate tricuspid regurgitation. Estimated pulmonary artery pressure
�of 56 mmHg.
�Pleural effusion present.
�The IVC is dilated.
�Compared to the previous echo May 2023, aortic valve gradients peak and mean
�were 43 and 28 mmHg respectively and have increased and PA pressures have
�increased.
�
�Indications:
�CHF,
�
�Rhythm: � � � � � � � � Atrial fibrillation
�
�Portable Study: � � � � Yes
�
�Technical Quality:� � � Good
�
�Contrast: � � None
�
�BP:� � 127 � / � 52
�
�PROCEDURE
�A complete Transthoracic Echocardiogram was performed utilizing two-dimensional
�evaluation with color flow and spectral Doppler analysis.
�
�FINDINGS
�
�Left Ventricle
�Normal left ventricular wall thickness. Left ventricle is mildly dilated.
�Normal left ventricular systolic function. Left ventricular ejection fraction
�is 57% by Busch's method.� Diastolic function indeterminate due to atrial
�fibrillation.
�
�Right Ventricle
�Normal right ventricular size and function.
�
�Left Atrium
�Indexed LA volume is severely abnormal (> 48 mL/m2).
�
�Right Atrium
�Severely dilated right atrium.
�
�Mitral Valve
�Thickened mitral valve leaflets.� Restricted posterior mitral valve. Mild to
�moderate mitral regurgitation.
�
�Aortic Valve
�Calcified aortic valve. Thickened aortic valve with restricted leaflet motion.
�Moderate to severe aortic stenosis. Peak/mean gradients across the aortic valve
�are 79/45 mmHg.� Using an LVOT diameter of 2.0cm, the SHELLEY =1.1 cm2.� Mild to
�moderate aortic regurgitation.
�
�Tricuspid Valve
�Tricuspid valve opens normally. Mild to moderate tricuspid regurgitation.
�Estimated pulmonary artery pressure of 56 mmHg, assuming a right atrial
�pressure of 8 mmHg.
�
�Pulmonic Valve
�Pulmonic valve opens normally. Trace pulmonic regurgitation.
�
�Pericardium\\Pleura
�Normal pericardium without effusion. Pleural effusion present.
�
�Aorta
�The aortic root is of normal size. Normal ascending aorta.
�
�Other Finding
�The IVC is dilated and does not collapse. Interatrial septum is intact with no
�evidence of shunting by color flow Doppler. No intracardiac mass or thrombus
�formation seen.
�
�MEASUREMENTS� (Male / Female) Normal Values
�2D ECHO
�LV Diastolic Diameter PLAX� � � � 6.0 cm� � � � � � � � 4.2 - 5.9 / 3.9 - 5.3 cm
�LV Systolic Diameter PLAX � � � � 4.7 cm� � � � � � � �
�IVS Diastolic Thickness � � � � � 1.0 cm� � � � � � � � 0.6 - 1.0 / 0.6 - 0.9 cm
�LVPW Diastolic Thickness� � � � � 1.0 cm� � � � � � � � 0.6 - 1.0 / 0.6 - 0.9 cm
�LV Relative Wall Thickness� � � � 0.3 � � � � � � � � �
�LVOT Diameter � � � � � � � � � � 2.0 cm� � � � � � � �
�LV Ejection Fraction MOD BP � � � 57.8 %� � � � � � � � >= 55� %
�LV Stroke Volume MOD BP � � � � � 73.4 cm3� � � � � � �
�LV Cardiac Index MOD BP � � � � � 2037.3 cm3/min
�LV Stroke Volume MOD 4C � � � � � 56.5 cm3� � � � � � �
�LV Stroke Volume 4C AL� � � � � � 55.1 cm3� � � � � � �
�LV Stroke Volume MOD 2C � � � � � 86.3 cm3� � � � � � �
�LV Stroke Volume 2C AL� � � � � � 87.7 cm3� � � � � � �
�LA Area 4C View � � � � � � � � � 34.5 cm2� � � � � � � <= 20 cm2
�LA Length 4C� � � � � � � � � � � 7.3 cm� � � � � � � �
�LA Volume � � � � � � � � � � � � 126.0 cm3 � � � � � � 18 - 58 / 22 - 52 cm3
�LA Volume Index � � � � � � � � � 62.2 cm3/m2 � � � � � 16 - 34 cm3/m2
�RV Diastolic Basal Diameter � � � 4.1 cm� � � � � � � � 2.0 - 2.8 cm
�RV Diastolic Mid Diameter � � � � 3.1 cm� � � � � � � � 2.7 - 3.3 cm
�Ascending Aorta Diameter� � � � � 3.3 cm� � � � � � � �
�Aorta at Sinuses Diameter � � � � 3.3 cm� � � � � � � �
�
�M-MODE
�LA Systolic Diameter MM � � � � � 5.9 cm� � � � � � � �
�AV Cusp Separation MM � � � � � � 1.3 cm� � � � � � � �
�
�DOPPLER
�AV Peak Velocity� � � � � � � � � 458.0 cm/s� � � � � �
�AV Peak Gradient� � � � � � � � � 83.9 mmHg � � � � � �
�AV Mean Gradient� � � � � � � � � 45.0 mmHg � � � � � �
�AV Velocity Time Integral � � � � 85.7 cm � � � � � � �
�AI Peak Velocity� � � � � � � � � 387.4 cm/s� � � � � �
�AI Peak Gradient� � � � � � � � � 60.0 mmHg � � � � � �
�AI Pressure Half Time � � � � � � 398.0 ms� � � � � � �
�LVOT Peak Velocity� � � � � � � � 162.0 cm/s� � � � � �
�LVOT Peak Gradient� � � � � � � � 10.5 mmHg � � � � � �
�LVOT Velocity Time Integral � � � 32.7 cm � � � � � � �
�LVOT Stroke Volume� � � � � � � � 102.7 cm3 � � � � � �
�LVOT Stroke Volume Index� � � � � 46.0 ml/m2� � � � � � empty
�LVOT Cardiac Index� � � � � � � � 2851.4 cm3/min\\m2 � �
�AV Area Cont Eq vti � � � � � � � 1.2 cm2 � � � � � � �
�AV Area Cont Eq pk� � � � � � � � 1.1 cm2 � � � � � � �
�MV Peak Velocity� � � � � � � � � 228.0 cm/s� � � � � �
�MV Peak Gradient� � � � � � � � � 20.8 mmHg � � � � � �
�MV Mean Velocity� � � � � � � � � 93.9 cm/s � � � � � �
�MV Mean Gradient� � � � � � � � � 5.0 mmHg� � � � � � �
�MV Area PHT � � � � � � � � � � � 4.1 cm2 � � � � � � �
�MR Peak Velocity� � � � � � � � � 524.0 cm/s� � � � � �
�MR Peak Gradient� � � � � � � � � 109.8 mmHg� � � � � �
�Mitral E Point Velocity � � � � � 206.0 cm/s� � � � � �
�LV E' Lateral Velocity� � � � � � 14.0 cm/s � � � � � �
�Mitral E to LV E' Lateral Ratio � 14.7� � � � � � � � �
�LV E' Septal Velocity � � � � � � 8.9 cm/s� � � � � � �
�Mitral E to LV E' Septal Ratio� � 23.1� � � � � � � � �
�TR Peak Velocity� � � � � � � � � 344.0 cm/s� � � � � �
�TR Peak Gradient� � � � � � � � � 47.3 mmHg � � � � � �
�
�
�11/01/2023 Cardiac Catheterization:
ACCESS: Right radial artery, 6 Mongolian sheath
HEMODYNAMICS : (mmHg)
AO (s/d) : 106/47
CORONARY FINDINGS
DOMINANCE: Right
LEFT MAIN: Normal
LEFT ANTERIOR DESCENDING: The LAD is a moderate caliber vessel arising normally from the left main and running in the anterior interventricular groove.� Minor irregularities are noted
CIRCUMFLEX: The circumflex is a large-caliber nondominant vessel giving rise to 2 sizable obtuse marginal branches.� The circumflex terminates in a small posterolateral branch.� Only minor irregularities are present.
RIGHT CORONARY ARTERY: The right coronary artery is a dominant vessel with a 45% mid stenosis and minor luminal irregularities throughout.� No focal obstructive stenosis.� The PDA is a moderate size vessel that is widely patent
ABDOMINAL AORTOGRAPHY WITH ILIOFEMORAL RUNOFF: Abdominal aortography was performed.� The distal abdominal aorta was of normal caliber and bifurcates normally to the right and left common iliac arteries.� The right common iliac had mild
atherosclerotic disease at its origin.� The external iliac to common femoral artery is widely patent.� The left common iliac artery is widely patent through the common femoral artery.
RADIATION SUMMARY:� Fluoro Time (min): 6, Dose (mGy): 308, DAP (Gy.cm2) : 25.9
Closure Device: TR band
CONCLUSIONS
1.� Nonobstructive coronary disease
2.� Symptomatic aortic stenosis with recent hospitalization for heart failure and recent GI bleeding
RECOMMENDATIONS
1.� Patient will be presented at upcoming Valve Clinic meeting.� CT angiography of the chest will be performed and a CT surgery consult will be arranged
Exam
General: Well Developed, Well Nourished and No Apparent Distress
HEENT: Normocephalic and Moist Mucous Membranes
Neck: Trachea Midline
Respiratory: Clear
Cardiac: S1/S2, Regular Rhythm and Murmur (Grade III/)
GI: Soft, Non Tender, Non Distended and Normal Bowel Sounds
Rectal: Deferred by Provider
Skin: Warm
Neuro: Awake, AO x 3, No Motor Deficits and Nonfocal/Grossly Intact
Extremities: Pulses (+2 DP pulses)
Psych: Calm
Assessment / Plan
-
Severe Aortic stenosis:
��������������� Continue evaluation for TAVR as an outpatient
��������������� BMP 11/08/2023 at
��������������� CT TAVR scan chest only 11/16/2023 at 0945 at
��������������� CT surgery consult with Dr. Figueroa 11/18/2023
��������������� Heart team discussion at [facility]
Dental Clearance
A-fib (C2V: 4)
Discuss timing to hold Xarelto prior to TAVR
Acute on Chronic Heart Failure: NYHA Class III
Continue lasix daily
Low sodium diet
Fluid restriction
Daily Weights
Chronic Kidney Disease Stage 3
Trend BUN/Creat/GFR
Limit contrast exposure
Consider pre and post hydration for CT pending follow up BMP results
Data Reviewed
-
EKG: Report Reviewed by me (Paced rhythm)
Inspector Tool: Discussed with Physician
Echo: Report Reviewed by me
Labs: Labs Reviewed by me
Old Records: Reviewed (previous hospitalization records from 09/27/2023 and 10/04/2023)
Total Time Spent with Patient (in minutes): 50
--- NOTE | 2023-11-01 12:25 | ITS.CL.CATH ---
Dialysis Technician - Catheterization
Cardiac Catheterization
Procedure Report:
LEFT HEART CATHETERIZATION
Date of Procedure: November 01, 2023
Referring: Dr. Fred Knight
PROCEDURES:
1. Coronary angiography
2. Abdominal aortography with iliofemoral runoff
INDICATION: Symptomatic aortic stenosis with recent hospitalization for congestive heart failure and GI bleeding
ACCESS: Right radial artery, 6 Maori sheath
HEMODYNAMICS : (mmHg)
AO (s/d) : 106/47
CORONARY FINDINGS
DOMINANCE: Right
LEFT MAIN: Normal
LEFT ANTERIOR DESCENDING: The LAD is a moderate caliber vessel arising normally from the left main and running in the anterior interventricular groove. Minor irregularities are noted
CIRCUMFLEX: The circumflex is a large-caliber nondominant vessel giving rise to 2 sizable obtuse marginal branches. The circumflex terminates in a small posterolateral branch. Only minor irregularities are present.
RIGHT CORONARY ARTERY: The right coronary artery is a dominant vessel with a 45% mid stenosis and minor luminal irregularities throughout. No focal obstructive stenosis. The PDA is a moderate size vessel that is widely patent
ABDOMINAL AORTOGRAPHY WITH ILIOFEMORAL RUNOFF: Abdominal aortography was performed. The distal abdominal aorta was of normal caliber and bifurcates normally to the right and left common iliac arteries. The right common iliac had mild
atherosclerotic disease at its origin. The external iliac to common femoral artery is widely patent. The left common iliac artery is widely patent through the common femoral artery.
RADIATION SUMMARY: Fluoro Time (min): 6, Dose (mGy): 308, DAP (Gy.cm2) : 25.9
Closure Device: TR band
CONCLUSIONS
1. Nonobstructive coronary disease
2. Symptomatic aortic stenosis with recent hospitalization for heart failure and recent GI bleeding
RECOMMENDATIONS
1. Patient will be presented at upcoming Valve Clinic meeting. CT angiography of the chest will be performed and a CT surgery consult will be arranged
Copy to: Dr. Fred Knight
== END 2023-11-01 11:15 | disposition home or self-care (01) ==
LOC: CATH 06:21
PROVIDERS: ATTENDING PHYSICIAN Internal Medicine Interventional Cardiology; FAMILY PHYSICIAN Internal Medicine
DX: I35.2 Nonrheumatic aortic (valve) stenosis with insufficiency (principal); I25.10 Atherosclerotic heart disease of native coronary artery without angina pectoris; I13.0 Hypertensive heart and chronic kidney disease with heart failure and stage 1 through stage 4 chronic kidney disease, or unspecified chronic kidney disease; I50.23 Acute on chronic systolic (congestive) heart failure; N18.32 Chronic kidney disease, stage 3b; I48.21 Permanent atrial fibrillation; E78.5 Hyperlipidemia, unspecified; Z85.46 Personal history of malignant neoplasm of prostate; Z87.891 Personal history of nicotine dependence; Z79.01 Long term (current) use of anticoagulants
CPT/HCPCS: 75630; 93454; C1769; C1894; Q9967

== ENCOUNTER → 2023-11-05 15:03 | Outpatient (REF) | payer MEDICARE, SELFPAY ==
[2023-11-05 15:53] LABS: % Basophils 0.5 % (0-2); % Eosinophils 2.1 % (0-6); % Immature Granulocytes 0.2 % (0-0.5); % Lymphocytes 13.2 % (20.5-51.1); % Monocytes 8.6 % (1.7-9.3); % Neutrophils 75.4 % (42.2-75.2); Absolute Eosinophils 0.2 10^3/uL (0-0.7); Absolute Lymphocytes 1.1 10^3/uL (1.2-3.4); Absolute Monocytes 0.7 10^3/uL (0.1-0.6); Absolute Neutrophils 6.2 10^3/uL (1.4-6.5); Hematocrit 33.2 % (39.0-52.0); Hemoglobin 10.9 g/dL (13.0-18.0); Mean Corp Hgb Conc. 32.8 g/dL (33.0-37.0); Mean Corpuscular Hgb 29.5 pg (27.0-31.0); Mean Platelet Volume 12.7 fL (7.4-10.4); Nucleated Red Blood Cells % 0 % (-); Platelet Count 194 10^3/uL (130-400); Red Blood Cell Count 3.69 10^6/uL (4.70-6.10); Red Cell Dist. Width 16.2 % (11.5-14.5); White Blood Cell Count 8.3 10^3/uL (4.8-10.8)
[2023-11-05 16:15] LABS: Blood Urea Nitrogen 41 mg/dl (9-20); Calcium 9.7 mg/dl (8.4-10.2); Carbon Dioxide 27 mmol/L (22-30); Chloride 102 mmol/L (98-107); Glucose 100 mg/dl (70-99); Iron 93 ug/dl (49-181); Potassium 4.5 mmol/L (3.5-5.1); Sodium 140 mmol/L (135-145); eGFR 43.02
[2023-11-05 16:24] LABS: Percent Saturation 31 % (20-50); Total Iron Binding Capacity 291 ug/dl (261-462)
== END ==
LOC: REG 15:03
PROVIDERS: ATTENDING PHYSICIAN Internal Medicine Hematology & Oncology; FAMILY PHYSICIAN Internal Medicine
DX: D50.0 Iron deficiency anemia secondary to blood loss (chronic) (principal); D64.9 Anemia, unspecified; R79.9 Abnormal finding of blood chemistry, unspecified; Z85.46 Personal history of malignant neoplasm of prostate; K92.1 Melena; N18.30 Chronic kidney disease, stage 3 unspecified
CPT/HCPCS: 36415; 80048; 82728; 83540; 83550; 85025

== ENCOUNTER → 2023-11-08 09:10 | Outpatient (REF) | payer MEDICARE, SELFPAY ==
[2023-11-08 10:02] LABS: Blood Urea Nitrogen 43 mg/dl (9-20); Calcium 9.6 mg/dl (8.4-10.2); Carbon Dioxide 28 mmol/L (22-30); Chloride 103 mmol/L (98-107); Glucose 96 mg/dl (70-99); Sodium 139 mmol/L (135-145); eGFR 43.02
== END ==
LOC: REG 09:10
PROVIDERS: ATTENDING PHYSICIAN Nurse Practitioner Adult Health; FAMILY PHYSICIAN Internal Medicine
DX: I35.0 Nonrheumatic aortic (valve) stenosis (principal)
CPT/HCPCS: 36415; 80048

== ENCOUNTER → 2023-11-16 09:35 | Outpatient (REF) | payer MEDICARE, SELFPAY | LOC: RAD 09:35 | PROVIDERS: ATTENDING PHYSICIAN Nurse Practitioner Adult Health; FAMILY PHYSICIAN Internal Medicine | DX: I35.0 Nonrheumatic aortic (valve) stenosis (principal) | CPT/HCPCS: 75572; Q9967 ==

== ENCOUNTER → 2023-11-18 10:00 | Outpatient (REF) | payer MEDICARE, SELFPAY ==
[2023-11-18 10:50] LABS: Hematocrit 32.8 % (39.0-52.0); Hemoglobin 10.4 g/dL (13.0-18.0); Mean Corp Hgb Conc. 31.7 g/dL (33.0-37.0); Mean Corpuscular Hgb 29.2 pg (27.0-31.0); Mean Corpuscular Volume 92.1 fL (80.0-94.0); Mean Platelet Volume 11.6 fL (7.4-10.4); Platelet Count 195 10^3/uL (130-400); Red Blood Cell Count 3.56 10^6/uL (4.70-6.10); Red Cell Dist. Width 16.5 % (11.5-14.5)
[2023-11-18 11:57] LABS: Albumin 3.9 g/dl (3.5-5.0); Blood Urea Nitrogen 41 mg/dl (9-20); Calcium 9.5 mg/dl (8.4-10.2); Carbon Dioxide 28 mmol/L (22-30); Chloride 104 mmol/L (98-107); Glucose 122 mg/dl (70-99); Phosphorus 3.4 mg/dl (2.5-4.5); Potassium 4.1 mmol/L (3.5-5.1); Sodium 142 mmol/L (135-145); eGFR 43.02
== END ==
LOC: REG 10:00
PROVIDERS: ATTENDING PHYSICIAN Internal Medicine; FAMILY PHYSICIAN Internal Medicine
DX: D64.9 Anemia, unspecified (principal); N18.32 Chronic kidney disease, stage 3b
CPT/HCPCS: 36415; 80069; 85027

== ENCOUNTER 2023-12-09 05:31 | Inpatient (IN) | payer MEDICARE, SELFPAY ==
[2023-12-01 12:10] VITALS: BMI 26.6
[2023-12-01 13:02] LABS: % Basophils 0.9 % (0-2); % Eosinophils 2.9 % (0-6); % Immature Granulocytes 0.3 % (0-0.5); % Lymphocytes 13.7 % (20.5-51.1); % Monocytes 11.6 % (1.7-9.3); % Neutrophils 70.6 % (42.2-75.2); Absolute Basophils 0.1 10^3/uL (0-0.2); Absolute Eosinophils 0.2 10^3/uL (0-0.7); Absolute Lymphocytes 0.8 10^3/uL (1.2-3.4); Absolute Monocytes 0.7 10^3/uL (0.1-0.6); Absolute Neutrophils 4.1 10^3/uL (1.4-6.5); Hematocrit 33.8 % (39.0-52.0); Mean Corp Hgb Conc. 32.5 g/dL (33.0-37.0); Mean Corpuscular Hgb 29.9 pg (27.0-31.0); Mean Corpuscular Volume 91.8 fL (80.0-94.0); Mean Platelet Volume 12.2 fL (7.4-10.4); Nucleated Red Blood Cells % 0 % (-); Platelet Count 201 10^3/uL (130-400); Red Blood Cell Count 3.68 10^6/uL (4.70-6.10); Red Cell Dist. Width 16.1 % (11.5-14.5); White Blood Cell Count 5.8 10^3/uL (4.8-10.8)
[2023-12-01 13:10] LABS: INR 1.48
[2023-12-01 13:11] LABS: Urine Albumin Negative (Neg - Trace); Urine Bilirubin Negative (Negative); Urine Character Clear (Clear); Urine Color Yellow; Urine Glucose Negative (Negative); Urine Ketone Negative (Negative); Urine Leukocyte Negative (Negative); Urine Nitrite Negative (Negative); Urine Occult Blood Negative (Negative); Urine Urobilinogen Negative (Neg - 1+)
[2023-12-01 13:11] LABS: APTT 34.3 Sec (23.4-35.0)
[2023-12-01 13:20] LABS: ALT (SGPT) 22 U/L (0-50); AST (SGOT) 29 U/L (17-59); Albumin 4.3 g/dl (3.5-5.0); Alkaline Phosphatase 81 U/L (38-126); Blood Urea Nitrogen 40 mg/dl (9-20); Calcium 9.6 mg/dl (8.4-10.2); Carbon Dioxide 27 mmol/L (22-30); Chloride 102 mmol/L (98-107); Direct Bilirubin 0.3 mg/dl (0.0-0.4); Estimated Creatinine Clearance 42 ml/min; Glucose 89 mg/dl (70-99); Potassium 4.8 mmol/L (3.5-5.1); Sodium 140 mmol/L (135-145); Total Bilirubin 0.6 mg/dl (0.2-1.3); Total Protein 6.9 g/dl (6.3-8.2); eGFR 46.48
[2023-12-01 13:27] LABS: NT-proBNP 3550 pg/ml
--- NOTE | 2023-12-01 14:20 | CM ---
CM met w/ patient, spouse Carmen during PATs for planned TAVR, 12/08.
Pt. resides w/ Carmen in a private, 2 story home. He is functionally indep. prior to admission w/ ADLs, mobility without the use of any assisted device. Pt. has SPC at home, but does not use. Pt. recently was hospitalized at and was DC'ed to home
w/ VN + O2. [facility] has since discontinued services and he only used O2 for several days before returning.
Pt. has Rx plan and uses [facility] in [place].
Soap, shower instructions and TAVR booklet provided.
Discussed pre op and post op routines.
Reviewed post op restrictions to include lifting and driving restrictions.
Discussed post op Apartment Rental Agent appointment, Cardiac Rehab and visit from CT Transitional Care RN.
Plan is for TAVR, 12/08.
Anticipated DC plan is for home w/ CT Transitional Care RN.
CM to follow.
[2023-12-02 08:37] LABS: Glycohemoglobin (HgbA1c) 5.8 % (4.0-5.6)
[2023-12-09] VITALS (14 sets, daily range): BP systolic 106–141; BP diastolic 58–71; BMI 26.9
--- NOTE | 2023-12-09 06:11 | W.CVOR.SURPR ---
CVOR Surgeon Immed Pre Op
-
I have examined this patient prior to performance of the scheduled procedure.
The patient's condition is unchanged from the time of the dictated/written History and
Physical and the patient is able to undergo the scheduled procedure.
TF TAVR
Full Rescue
--- NOTE | 2023-12-09 06:28 | PTCARENOTE ---
Pt rec'd as direct admit for tavr. Pt clipped and washed with CHG wipes. 20 g placed in left arm. adm hx taken and recorded. V paced o telemetry.
[2023-12-09] MEDS: ANCEF 10 IV (07:00)
[2023-12-09 08:18] LABS: ACT-LR - POC 236 Seconds (116-155)
[2023-12-09 08:28] LABS: ACT-LR - POC 290 Seconds (116-155)
--- NOTE | 2023-12-09 08:37 | W.PN.UPDATE ---
Update Note
Progress Note Update
Reviewed Mr. Hernández with the heart team in the preTAVR SDM meeting and confirmed a 26 mm S3 via right transfemoral access. Patient will resume Xarelto post TAVR. LVEDP 20mmHg. #26mm S3 (serial# [id number]) successfully deployed via right transfemoral
access. Post implant MG 5 mmHg.
--- NOTE | 2023-12-09 09:03 | ITS.CL.TAVR ---
Data Warehouse Administrator - TAVR Report
TAVR PRocedure
Procedure Report:
TRANSCATHETER AORTIC VALVE REPLACEMENT
Date of Procedure: December 09, 2023
Referring: Dr. Luc Mayorga
Operators: Drs. Robert Cohen and Jovon Figueroa
PROCEDURE PERFORMED:
1. Successful placement of 26 mm Mariee Juliocesar S3 aortic valve via right common femoral approach.
PREPROCEDURE NYHA CLASS: 3
DESCRIPTION OF PROCEDURE: The patient was referred for assessment of severe symptomatic aortic stenosis and following a comprehensive evaluation it was felt that transcatheter aortic valve replacement (TAVR) would be the most appropriate treatment.
Informed consent was obtained prior to the procedure. A 'time-out' was called and the procedural plan was verbally confirmed by anesthesia, surgery, perfusion, and laborer/grade check staff.
Arterial was obtained in the left common femoral artery using ultrasound guidance and micropuncture technique. A 6 Fr sheath was inserted. Ultrasound guidance was then utilized to gain access into the left common femoral vein and a 6 Fr sheath was
inserted. Attention was then turned to the right common femoral artery where ultrasound guidance was utilized and access was obtained. Angiography through the micropuncture sheath revealed appropriate positioning of the arteriotomy for preclosure
with 2 Perclose devices. A 0.035 inch J-wire was then reinserted through the micropuncture sheath and a 6 Fr sheath was then inserted.
A transvenous pacemaker wire was then advanced from the left common femoral vein to the right ventricular apex where excellent pacing thresholds were obtained.
An angled pigtail catheter was then advanced to the right coronary cusp. Angiography was performed to define a coplanar angle facilitating positioning and delivery of the TAVR device. MONTENEGRIN 2/CAU 5 appear to be a reasonable coplanar angle.
Pre-closure of the right femoral arteriotomy was then performed using 2 Perclose devices and was followed by placement of an 8 Fr arterial sheath.
An AL-1 catheter was then advanced to the proximal descending thoracic aorta over 0.035' J-tipped guidewire. An Amplatz Extra-Stiff wire was then advanced through the AL-1 catheter to the proximal descending thoracic aorta. The AL-1 catheter was
removed and the supportive wire was utilized to facilitate delivery of the Mariee eSheath and dilator. Heparin, 7000 units, was administered and the ACT was monitored throughout the procedure. Additional heparin was administered as needed.
The AL-1 catheter was then readvanced through the Mariee eSheath. The 0.035' stiff wire was allowed to drift across the aortic arch and the AL1 was positioned just above the aortic valve. The stenotic leaflets were probed with a Soft-tip Straight
wire. The aortic leaflets were crossed and the AL-1 catheter followed the Soft-tip Straight wire to the mid left ventricle. The wire was removed. Left ventricular end-diastolic pressures was measured at 20 mmHg.
An Amplatz Extra-Stiff wire with a generous curved tip was then advanced to the mid left ventricle. The AL-1 catheter was removed and the Amplatz wire was left in place in order to facilitate delivery of the Mariee delivery system. A 26 mm
Mariee JULIOCESAR S3 valve with 1 mL of additional volume was brought to the table and the orientation of the valve on the balloon delivery system was confirmed by all operators. The JULIOCESAR S3 valve was advanced through the eSheath and into the
proximal descending thoracic aorta. The JULIOCESAR valve was centered on the delivery balloon and the entire system was retroflexed as across the aortic arch in an MONTENEGRIN projection. The JULIOCESAR S3 delivery system was then advanced across the stenotic
aortic leaflets. The pusher was retracted. Angiography confirmed appropriate positioning of the valve and rapid pacing was undertaken. The 26 mm JULIOCESAR S3 valve w +1 ml of additional volume was deployed during rapid pacing. Valve deployment was
uneventful. Aortography following valve deployment suggested no aortic insufficiency while the wire was still across the valve in the left ventricle.
The post valve deployment transthoracic echocardiogram was notable for a mean gradient of 5 mmHg.
The Mariee valve delivery system was removed. The Mariee eSheath was removed and the Perclose knots were advanced to the arteriotomy site with excellent hemostasis. Angiography after the Perclose knots were advanced to the arteriotomy site and
demonstrated good distal runoff.
A 6 Macanese Angio-Seal was then utilized to obtain hemostasis in the left common femoral artery. The temporary pacemaker and 6 Fr sheath were removed and manual pressure was held over the 6 Macanese femoral venous access.
Protamine was administered to reverse the intravenous anticoagulant.
Fluoro Time: 7.1 min, Dose: 305 mGy, DAP : 38.7 Gy.cm2
CONCLUSIONS:
1. Severe symptomatic aortic stenosis. Successful deployment of a 26 mm JULIOCESAR S3 valve with 1 additional milliliter of volume. The post deployment mean gradient measured 5 mmHg with no significant aortic insufficiency
2. The right common femoral arteriotomy was closed with 2 Perclose devices and the left common femoral arteriotomy site with a 6 Fr Angio-Seal
Copy to: Dr. Luc Mayorga
--- NOTE | 2023-12-09 09:32 | W.PN.CT.SURG ---
CT Surgery Operative Note
-
OPERATIVE REPORT
Preoperative Diagnosis: Severe aortic valve stenosis, symptomatic
Postoperative Diagnosis: Same
Procedure(s) Performed: Right trans femoral TAVR with a 26mm + 1 Benton TAVR valve
Date of Procedure: 12/09/23
Comorbidities:
1. Severe aortic stenosis, symptomatic
2. CKD stage IIIb
3. Paroxysmal atrial fibrillation
4. Chronic anemia
5. History of hemorrhagic disorder
6. Chronic pulmonary hypertension
7. Hypertension
8. Hyperlipidemia
9. Congestive heart failure
Cardiac Surgeon: Jovon Figueroa MD, MS
Curtain Mender: Robert Cohen MD
Anesthesia: Conscious Sedation and Local Analgesia
EBL: 200cc
Products: none
Implant: 26mm (+1) BENOTN EVERT ULTRA, SN: [id number]
Indication(s) for Procedures: 83-year-old male with symptomatic severe aortic stenosis. CT-TAVR protocol revealed acceptable anatomy for TAVR access and implantation. Shared decision-making between the outpatient life educator, interventional
life educator, patient and myself was to pursue transcatheter intervention given his age and STS risk.
Start time: 0744hrs
Deployment time: 0818hrs
End time: 0830hrs
Radiation Dose (mGy): 304.73
DAP (cm2.Gy): 38.6664
Fluoroscopy time (minutes): 7.1
Contrast volume (ml): 88
TAVR gradient (mmHg): 5mmHg
Heparin Dose: 7000units
Protamine Dose: 30mg
Final Valve Positionin/10
LVEDP, mmH
Findings: Preoperative LVEF was 65% and was 65% following TAVR without inotropic support. Function was overall normal without regional wall motion abnormalities or dyskinesia. The aortic valve was well seated without detectable PVL and mean gradient
across the new valve was 5mmHg. the patient had a pre-existing Micra pacemaker and returned to their [place] rhythm while on the labor relations teacher table. There was successful placement of 26 mm norminal +1 TAVR valve without acute complications. LVEDP was
measured pre-TAVR deployment, was found to be 20 mmHg.
Access:
1. Device -right common femoral artery, perclose x 2
2. Pigtail -left common femoral artery + 6Fr angioseal
3. Transvenous Pacer -left common femoral vein
Description of Procedure: The patient was taken to the labor relations teacher. Their identity and procedure to be performed were verified and they were positioned supine on the labor relations teacher table. Induction via conscious sedation. The patient was then prepped and
draped from chin to thigh in a sterile fashion. A preoperative time-out was performed with all members of the team present. Arterial and venous access was performed using fluoroscopy and ultrasound guidance with micropuncture and Seldinger
technique. Two perclose devices were used on the device side followed by access to the aorta with a stiff wire to facilitate E-sheath placement. Heparin was given. A stiff straight wire and AL-1 catheter was used to cross the aortic valve. The stiff
wire was exchanged for an extra stiff coiled tip wire. The valve was prepped and mounted on to the device carrier. An ACT of >250 was achieved. We verified x 3 that the valve was mounted in the correct orientation with the skirt of the valve
directed toward the tip of the device carrier. We advanced the device into the descending thoracic aorta where the valve was them mounted onto the balloon under fluoroscopy. The device was flexed and advanced over the arch into the root and
positioned across the aortic valve. Contrast fluoroscopy was used to visualize the prosthesis across the valve and to guide positioning. A pigtail catheter in the RCC as used as a guide. We aimed to have the bottom of the device marker at the
annular hinge point. The device sheath was pulled back. We performed a quick pre-deployment time out. The pacer was turned on and had capture. Blood pressure fell accordingly, angiography was done to verify the intended final placement and the valve
was deployed with 5 seconds of rapid pacing to nominal volume. The balloon was deflated and the pacer was turned off. We had recovery of vitals. The device carrier was unflexed and positioned back in the descending thoracic aorta. A transthoracic
echocardiogram was performed. The device was removed from the E-Sheath maintaining wire access followed by removal of the E-sheath as we cinched down the perclose devices. There was acceptable hemostasis. The pigtail was withdrawn into the
descending/abdominal and completion aortogram with runoff run-off angiography was performed. There was no stenosis or dissection of bilateral iliofemoral systems. There was acceptable hemostasis of bilateral groins and manual pressure was held
following wire removal. Low dose protamine was administered after checking another ACT.
All instrument, sponge, and needle counts were confirmed to be correct x 2 at the end of the operation. The patient was transferred to the cardiac intensive care unit in stable condition.
I, Dr. Jovon Figueroa, was present, scrubbed for, and performed all critical elements of this procedure.
Jovon Figueroa MD
Cardiothoracic Surgeon
[facility]
This operative dictation was created using the imageloop dictation system. Please excuse any grammatical, typographical, or 'sound alike' errors
--- NOTE | 2023-12-09 11:31 | CM ---
Chart reviewed. Patient is in the OR today. Patient is independent of ADLS, lives with his in a 2 [address]TH, has a SPC at home but does not use. Plan is for the patient to return home with CT Transitional RN. CM to follow
[2023-12-09] MEDS: ANCEF 5 IV (16:31)
[2023-12-09] MEDS: COREG 6.25 MG PO (20:09)
[2023-12-09] MEDS: LIPITOR 10 MG PO (22:50)
[2023-12-09] MEDS: MELATONIN 5 MG PO (23:03)
--- NOTE | 2023-12-09 23:51 | PTCARENOTE ---
Pt rec'd at change of shift awake,alert no c/o pain or neuro changes. B/l groins intact. Old drainage noted on right femoral site drsg with no changes noted throughout evening shift. Pt given Melatonin after stating he was unable to sleep. Pt
usually takes Unisom at hS. call adkins within reach.
[2023-12-10] VITALS (7 sets, daily range): BP systolic 104–161; BP diastolic 63–86; PULSE 60; O2SAT 97–99
--- NOTE | 2023-12-10 02:44 | W.PN.CT ---
Today's Communication / Plan
-
-pod #1
-no issues overnight
-v-paced overnight, 6 beat run PVCs
-Echo today
-current meds (Coreg, Lasix, Lipitor, Xarelto to be restarted 12/09 pm)
-encourage IS, OOB
-possible d/c
Assessment / Plan
-
- Severe symptomatic - s/p Right trans femoral TAVR with a 26mm + 1 Mariee TAVR valve on 12/09/23, pod #1
- LVEDP was measured pre-TAVR deployment, was found to be 20 mmHg.
- Intraop TTE: LVEF was 65% pre and post TAVR without inotropic support, no regional wma. The aortic valve was well seated without detectable PVL and mean gradient across the new valve was 5mmHg.
- Chronic diastolic CHF
- s/p leadless Micra pacer for bradycardia
- CKD stage IIIb
- Paroxysmal atrial fibrillation, s/p CV and PVIs- on Xarelto at home
- Chronic anemia
- History of hemorrhagic disorder
- Chronic pulmonary hypertension
- Hypertension
- Hyperlipidemia
- Prostate CA - s/p prostatectomy
- hx PE
Discussed patient care with: Nursing and Care Team
Subjective
Procedure
- s/p Right trans femoral TAVR with a 26mm + 1 Mariee TAVR valve on 12/09/23
-
Date of Service: December 10, 2023
Objective Data
-
PT 18.0 Sec (11.4-14.6) H 12/01/23 12:17
INR 1.48 12/01/23 12:17
APTT 34.3 Sec (23.4-35.0) 12/01/23 12:17
Vital Signs
Vital Signs
Temp Pulse Resp BP Pulse Ox
98.8 F 60 20 134/68 98
12/09/23 22:55 12/09/23 22:50 12/09/23 22:55 12/09/23 22:50 12/09/23 22:50
CT Intake/Output/Weight
12/09/23 12/09/23 12/10/23
06:59 18:59 06:59
Intake Total 240 / 240
Balance 240 / 240
SaO2: 98
Physical Exam
-
General: Awake and AOx3
Cardiovascular: Regular rate & rhythm, Murmur (1/6 systolic) and No Rub
Respiratory: Clear and Decreased Breath Sounds
Incision: Other (groins are cdi, soft, nontender, no hematoma b/l)
Extremities: Edema +1 (2+ DPs b/l)
Data Reviewed
-
Lab Results: Results Reviewed
Medications: Active Meds Reviewed
Chest X-Ray: Report Reviewed and Image Reviewed
ECG: Report Reviewed and Image Reviewed
[2023-12-10] MEDS: TYLENOL 650 MG PO (04:02)
[2023-12-10 04:27] LABS: Hematocrit 29.4 % (39.0-52.0); Mean Corpuscular Hgb 30.1 pg (27.0-31.0); Mean Corpuscular Volume 88.6 fL (80.0-94.0); Mean Platelet Volume 11.3 fL (7.4-10.4); Platelet Count 145 10^3/uL (130-400); Red Blood Cell Count 3.32 10^6/uL (4.70-6.10); Red Cell Dist. Width 16.2 % (11.5-14.5); White Blood Cell Count 7.9 10^3/uL (4.8-10.8)
--- NOTE | 2023-12-10 04:32 | PTCARENOTE ---
Pt called nursing to room c/o pain right knee (arthritic pain). Tylenol given and ice applied. REFRIGERATING MACHINE OPERATOR on telemetry
[2023-12-10 04:54] LABS: Blood Urea Nitrogen 39 mg/dl (9-20); Carbon Dioxide 24 mmol/L (22-30); Chloride 109 mmol/L (98-107); Estimated Creatinine Clearance 44 ml/min; Glucose 107 mg/dl (70-99); Potassium 4.1 mmol/L (3.5-5.1); Sodium 139 mmol/L (135-145); eGFR 50.49
--- NOTE | 2023-12-10 07:38 | W.PN.ANS.POP ---
Anesthesia Post Operative
- Anesthesia Post Op Note
Vital Signs Stable-See Nursing Note: Yes
Airway Patent: Yes
Adequate Pain Control: Yes
Change in Mental Status: No
Current Postoperative Nausea & Vomiting: No
Anesthesia Complications: No
General Anesthetic Recall: No
Unplanned Admission: No
Post Op Hydration Adequate: Yes
- -
Pt awake and alert, resting comfortably with no anesthesia c/o at time of post op visit.
[2023-12-10] MEDS: COREG 6.25 MG PO (08:24)
[2023-12-10] MEDS: LASIX 60 MG PO (08:24)
--- NOTE | 2023-12-10 08:39 | W.DCSUMMARY ---
Discharge Summary
Discharge Data
Date of Admission: 12/09/23
Date of Discharge: 12/10/23
-
Pending Results: No
Hospital Course
Primary care physician: Dr Forrest
Outpatient provider scribe: Dr. Knight
Inpatient consultants: [facility]
Procedures:
1. Right transfemoral TAVR
Primary Diagnosis:
1. Severe aortic stenosis
Secondary Diagnoses:
1. CKD stage IIIb
2. Paroxysmal atrial fibrillation with permanent pacer
3. Chronic anemia
4. History of hemorrhagic disorder
5. Chronic pulmonary hypertension
6. Hypertension
7. Hyperlipidemia
8. Congestive heart failure
HPI: 83-year-old male was electively admitted on 12/09/2023 for TAVR.
Hospital course: Patient underwent right transfemoral TAVR #26mm (+1) BENTON EVERT ULTRA with Dr. Figueroa. Patient went to recovery room without sheaths or vasoactive infusions. ECG with unchanged paced rhythm. Predischarge TTE repoted EF 45-50%,
AV gradients 24/13mmHg, no mild TR, moderate MR. Stable fo rdischarge.
Home medication changes:
Tylenol as needed for pain
Discharge Plan
-
Patient Disposition: Home (Routine Discharge)
Discharge Diagnosis/Procedures: TF-TAVR
Condition: Good
Diet: Low Cholesterol and 2 Gram Sodium
Activity: As tolerated
Driving Restrictions: No driving for 1 week
Bathing Restrictions: OK to Shower
Others Tests: 30 Day Follow Up Echocardiogram: 01/14/2024 at 9:20am at [facility]
Other Services: Cardiac Rehab
Wound Care: Please do not apply lotions, creams or powders to groin areas. Please monitor for increased pain, swelling, redness or drainage. Call your doctor if any occur.
Specialty Instructions: Weigh Daily- Call MD for wt gain/loss 3 lbs overnight/5 lbs in 1 week
Referrals:
CT Transitional Care Nurse [Outside] (The Cardiothoracic Transitional Care Nurse will call you to set up a visit in 1-2 days.)
[facility] [Outside] - 12/30/23 9:30 am
(Cardiac Rehab Orientation appointment is on 12/30/23 at 9:30 am
The Cardiac Rehab gym is located on the first floor of the [facility].)
Emily Lafleur CRNP [Specified Professional Personl] - 01/03/24 3:00 pm
()
Daniel Forrest MD [Family Provider] -
Prescriptions:
New
acetaminophen 325 mg Tablet
650 mg PO Q4HPRN PRN (Reason: WEBSTER, mild pain, or fever >101F) Qty: 0 0RF
Continued
simvastatin 20 MG tablet
20 mg PO QPM
Sleep Aid (doxylamine) 25 MG tablet
25 mg PO HS
ascorbic acid (vitamin C) [Vitamin C] 1,000 mg Tablet
1,000 mg PO DAILY
calcium carbonate-vitamin D3 [Calcium 600 + D(3)] 600 mg-10 mcg (400 unit) Tablet
1 tab PO DAILY
Xarelto 15 mg Tablet
15 mg PO 1800
Hold Instructions: Resume on 09/30/23.
furosemide 40 mg Tablet
60 mg PO DAILY Qty: 0 0RF
carvedilol 6.25 mg Tablet
6.25 mg PO BID Qty: 0 0RF
loratadine 10 mg tablet
10 mg PO QPM Qty: 0 0RF
cyanocobalamin (vitamin B-12) 1,000 mcg tablet
1,000 mcg PO DAILY
folic acid 1 mg tablet
1 mg PO DAILY
Care Plan Goals
Care Plan Goals:
Problem: Readiness for enhanced knowledge related to diagnosis and treatment plan
Goal: Understand your diagnosis and treatment plan needs, including medications if applicable.
Instructions: Know your diagnosis, underlying causes and treatment plan options, including medications if applicable. Consult with your health care team to learn about your diagnosis and treatment plan, including medications if applicable.
Discharge Date and Time
Print Language: PERSIAN
--- NOTE | 2023-12-10 08:41 | PTCARENOTE ---
assumed care of pt from previous shift RN, paced rhythm on tele, + peripheral pulses, no edema. Lungs CTA, denies SOB or CP. +BS, tolerating PO intake, voids spontaneously. Bilateral groins w dressings intact w marked old drainage unchanged. PIV
flushes easily. Plan of care reviewed w the pt and questions encouraged.
--- NOTE | 2023-12-10 11:36 | CM ---
Chart reviewed. Patient is independent of ADLS, lives with his in a 2 STH, 0 DME. Plan is for the patient to return home with CT Transitional RN. CM to follow
--- NOTE | 2023-12-10 11:51 | W.PN.CARDCBS ---
Addendum entered and electronically signed by Adan Velasquez MD 12/10/23 14:48:
I saw and examined the patient.
The TANNING SALON ATTENDANT or PA's note was reviewed and I agree with the note.
Comment: General: Well developed, well nourished in NAD.
Neck: Supple, no JVD, HJR, carotids +2 B/L, no bruits bilaterally.
Heart: Non displaced PMI, RRR, no murmurs, No S3, S4, no rubs.
Lungs: Clear to auscultation bilaterally, no wheeze, rhonchi, rubs bilaterally,
normal expiratory phase.
Extremities: No clubbing, cyanosis or edema bilaterally.
Neuro: Grossly nonfocal, awake, alert and oriented x3.
Stable cardiology status for discharge. Ejection fraction mildly reduced on echocardiogram. No signs or symptoms of CHF. Follow-up arranged. Discussed with buttonhole tacker. Xarelto to be resumed this evening
Original Note:
Today's Communication / Plan
-
doing well s/p TAVR
echo pending
vpaced
xarelto to restart this evening
for possible DC later today
OP cardiac follow up arranged
Impression / Plan
-
Primary Factory Expert: Dr. Knight
Assessment:
-Severe symptomatic s/p R TF TAVR with 26mm Mariee TAVR 12/09/23
-Chronic diastolic CHF
-CHB s/p leadless Micra PPM 05/2017
-CKD stage IIIb
-Paroxysmal atrial fibrillation
s/p PVI 07/18/2009
s/p redo PVI 06/26/2010
-chronic OAC with Xarelto
-Chronic iron def anemia
-History of gi bleed 09/2023
-Chronic pulmonary hypertension
-Hypertension
-Hyperlipidemia
-Prostate CA s/p prostatectomy
-History of B/L PE 2012
ECHO 10/04/2023: EF 57%, mild to moderate MR, moderate to severe with peak/mean gradient 79/45 mmHg, SHELLEY 1.1 cm�, mild to moderate AR, mild to moderate TR, PAP 56 mmHg, pleural effusion present, dilated IVC
ECHO 12/09/2023: Limited views obtained after TAVR deployment, mean gradient 5 mmHg, no AR seen
Plan:
-Patient reports feeling well status post right transfemoral TAVR 12/09/2023
-Remains in V paced rhythm overnight on review of telemetry.
-with 6 beats NSVT overnight. K stable, continue OP coreg
-Echo today
-Xarelto 15mg QPM to be resumed this evening. hgb 10.0. no issues with B/L groin sites noted
-continue po lasix 60mg daily. Cr stable at 1.4
-for possible DC to home later today
-OP cardiac follow up arranged
Progress Note - Factory Expert
Subjective
Date of Service: December 10, 2023
no issues overnight. reports feeling well
Objective
Labs:
12/10/23 04:13
12/10/23 04:13
Labs
Hgb 10.0 g/dL (13.0-18.0) L 12/10/23 04:13
Hct 29.4 % (39.0-52.0) L 12/10/23 04:13
Plt Count 145 10^3/uL (130-400) 12/10/23 04:13
PT 18.0 Sec (11.4-14.6) H 12/01/23 12:17
INR 1.48 12/01/23 12:17
APTT 34.3 Sec (23.4-35.0) 12/01/23 12:17
Sodium 139 mmol/L (135-145) 12/10/23 04:13
Potassium 4.1 mmol/L (3.5-5.1) 12/10/23 04:13
BUN 39 mg/dl (9-20) H 12/10/23 04:13
Creatinine 1.4 mg/dL (0.7-1.3) H 12/10/23 04:13
Glucose 107 mg/dl (70-99) H 12/10/23 04:13
Vital Signs and I&O:
Vital Signs
Temp Pulse Resp BP Pulse Ox
99 F 60 20 110/65 99
12/10/23 11:19 12/10/23 08:00 12/10/23 11:19 12/10/23 07:36 12/10/23 11:19
Vital Signs
Temp Pulse Resp BP Pulse Ox
99 F 60 20 110/65 99
12/10/23 11:19 12/10/23 08:00 12/10/23 11:19 12/10/23 07:36 12/10/23 11:19
Intake & Output
12/08/23 12/09/23 12/10/23 12/11/23
07:59 07:59 07:59 07:59
Intake Total 720 / 720 50 / 50
Balance 720 / 720 50 / 50
Physical Exam
Physical Exam
GEN: No distress, awake, alert, oriented x3
HEENT: supple, anicteric, mmm, eomi
LUNGS: CTA B/L, no wheezes/rales
CV: Reg, S1/S2, 1/6 syst LSB
ABD: soft, BS+, NT/ND
EXT: No cyanosis, clubbing, edema
NEURO: Gross non-focal
SKIN: Warm, pink, dry. No rash. B/L groin sites with dressings intact, soft, NTTP
--- NOTE | 2023-12-10 15:52 | PTCARENOTE ---
IV line and tele monitor d/c'ed. Discharge instructions, medication list and follow up appointments reviewed w the pt and his , questions encouraged.
== END 2023-12-10 16:19 | disposition home or self-care (01) | DRG 267 ==
LOC: IVU 05:31
PROVIDERS: Physician Assistant Medical; ADMITTING PHYSICIAN Thoracic Surgery (Cardiothoracic Vascular Surgery); FAMILY PHYSICIAN Internal Medicine; REFERRING PHYSICIAN Nurse Practitioner Adult Health
PROC: 02RF38Z Replacement of Aortic Valve with Zooplastic Tissue, Percutaneous Approach (ICD-10-PCS; 2023-12-09)
DX: I35.0 Nonrheumatic aortic (valve) stenosis (principal); Z00.6 Encounter for examination for normal comparison and control in clinical research program; I13.0 Hypertensive heart and chronic kidney disease with heart failure and stage 1 through stage 4 chronic kidney disease, or unspecified chronic kidney disease; I50.32 Chronic diastolic (congestive) heart failure; N18.32 Chronic kidney disease, stage 3b; I48.0 Paroxysmal atrial fibrillation; D63.1 Anemia in chronic kidney disease; I27.20 Pulmonary hypertension, unspecified; E78.5 Hyperlipidemia, unspecified; D50.9 Iron deficiency anemia, unspecified; Z79.01 Long term (current) use of anticoagulants; Z79.899 Other long term (current) drug therapy; Z85.46 Personal history of malignant neoplasm of prostate; Z86.711 Personal history of pulmonary embolism
CPT/HCPCS: 93308; 33361; 36415; 71045; 71046; 80048; 80053; 81003; 82248; 83036; 83880; 85025; 85027; 85347; 85610; 85730; 86850; 86900; 86901; 86920; 87070; 93005; 93306; 93321; 93325; C1760; C1769; C1894; Q9967

== ENCOUNTER 2024-01-12 09:50 | Outpatient (RCR) | payer MEDICARE, SELFPAY | END 2024-01-12 23:59 | disposition home or self-care (01) | LOC: CRHB 09:50 | PROVIDERS: ATTENDING PHYSICIAN Internal Medicine Cardiovascular Disease | DX: Z95.4 Presence of other heart-valve replacement (principal) | CPT/HCPCS: G0422; G0423 ==

== ENCOUNTER → 2024-01-14 09:06 | Outpatient (REF) | payer MEDICARE, SELFPAY | LOC: RCS 09:06 | PROVIDERS: ATTENDING PHYSICIAN Internal Medicine Cardiovascular Disease; FAMILY PHYSICIAN Internal Medicine | DX: I35.0 Nonrheumatic aortic (valve) stenosis (principal) | CPT/HCPCS: 93306 ==

== ENCOUNTER → 2024-01-17 13:55 | Outpatient (REF) | payer MEDICARE, SELFPAY ==
[2024-01-17 14:46] LABS: % Basophils 0.5 % (0-2); % Eosinophils 4.4 % (0-6); % Immature Granulocytes 0.3 % (0-0.5); % Lymphocytes 17.2 % (20.5-51.1); % Monocytes 9.7 % (1.7-9.3); % Neutrophils 67.9 % (42.2-75.2); Absolute Eosinophils 0.3 10^3/uL (0-0.7); Absolute Lymphocytes 1.1 10^3/uL (1.2-3.4); Absolute Monocytes 0.6 10^3/uL (0.1-0.6); Absolute Neutrophils 4.2 10^3/uL (1.4-6.5); Hematocrit 32.5 % (39.0-52.0); Hemoglobin 10.4 g/dL (13.0-18.0); Mean Corpuscular Hgb 30.5 pg (27.0-31.0); Mean Corpuscular Volume 95.3 fL (80.0-94.0); Mean Platelet Volume 11.9 fL (7.4-10.4); Nucleated Red Blood Cells % 0 % (-); Platelet Count 158 10^3/uL (130-400); Red Blood Cell Count 3.41 10^6/uL (4.70-6.10); Red Cell Dist. Width 15.5 % (11.5-14.5); White Blood Cell Count 6.1 10^3/uL (4.8-10.8)
[2024-01-17 14:54] LABS: Blood Urea Nitrogen 38 mg/dl (9-20); Creatine Phosphokinase 47 U/L (55-170); Iron 73 ug/dl (49-181)
[2024-01-17 15:04] LABS: Percent Saturation 24 % (20-50); Total Iron Binding Capacity 294 ug/dl (261-462)
[2024-01-17 15:30] LABS: Ferritin 62.1 ng/ml (17.9-464.0)
== END ==
LOC: REG 13:55
PROVIDERS: ATTENDING PHYSICIAN Internal Medicine Hematology & Oncology; FAMILY PHYSICIAN Internal Medicine
DX: D50.0 Iron deficiency anemia secondary to blood loss (chronic) (principal); D64.9 Anemia, unspecified; R79.9 Abnormal finding of blood chemistry, unspecified; Z85.46 Personal history of malignant neoplasm of prostate; K92.1 Melena; N18.30 Chronic kidney disease, stage 3 unspecified
CPT/HCPCS: 36415; 82550; 82728; 83540; 83550; 84520; 85025

== ENCOUNTER → 2024-02-11 08:02 | Outpatient (REF) | payer MEDICARE, SELFPAY ==
[2024-02-11 08:49] LABS: % Basophils 0.5 % (0-2); % Eosinophils 3.9 % (0-6); % Immature Granulocytes 0.2 % (0-0.5); % Lymphocytes 14.7 % (20.5-51.1); % Monocytes 10.8 % (1.7-9.3); % Neutrophils 69.9 % (42.2-75.2); Absolute Eosinophils 0.2 10^3/uL (0-0.7); Absolute Lymphocytes 0.8 10^3/uL (1.2-3.4); Absolute Monocytes 0.6 10^3/uL (0.1-0.6); Hematocrit 30.2 % (39.0-52.0); Hemoglobin 9.7 g/dL (13.0-18.0); Mean Corp Hgb Conc. 32.1 g/dL (33.0-37.0); Mean Corpuscular Volume 96.5 fL (80.0-94.0); Mean Platelet Volume 11.8 fL (7.4-10.4); Nucleated Red Blood Cells % 0 % (-); Platelet Count 150 10^3/uL (130-400); Red Blood Cell Count 3.13 10^6/uL (4.70-6.10); Red Cell Dist. Width 13.6 % (11.5-14.5); White Blood Cell Count 5.7 10^3/uL (4.8-10.8)
[2024-02-11 09:21] LABS: ALT (SGPT) 18 U/L (0-50); AST (SGOT) 27 U/L (17-59); Alkaline Phosphatase 70 U/L (38-126); Blood Urea Nitrogen 38 mg/dl (9-20); Calcium 9.2 mg/dl (8.4-10.2); Carbon Dioxide 27 mmol/L (22-30); Chloride 107 mmol/L (98-107); Glucose 93 mg/dl (70-99); HDL Cholesterol 42 mg/dl; LDL Cholesterol, Calculated 49 mg/dl; Potassium 4.2 mmol/L (3.5-5.1); Sodium 142 mmol/L (135-145); Total Bilirubin 0.7 mg/dl (0.2-1.3); Total Cholesterol 103 mg/dl (50-199); Total Protein 6.5 g/dl (6.3-8.2); Triglyceride 63 mg/dl (10-149); Very Low Density Lipoprotein 12 mg/dl (0-30); eGFR 46.48
== END ==
LOC: REG 08:02
PROVIDERS: ATTENDING PHYSICIAN Internal Medicine
DX: E78.5 Hyperlipidemia, unspecified (principal); I10 Essential (primary) hypertension; I48.0 Paroxysmal atrial fibrillation; Z00.00 Encounter for general adult medical examination without abnormal findings
CPT/HCPCS: 36415; 80053; 80061; 85025

== ENCOUNTER 2024-02-11 10:01 | Outpatient (RCR) | payer MEDICARE, SELFPAY | END 2024-02-11 23:59 | disposition home or self-care (01) | LOC: CRHB 10:01 | PROVIDERS: ATTENDING PHYSICIAN Internal Medicine Cardiovascular Disease | DX: Z95.4 Presence of other heart-valve replacement (principal) | CPT/HCPCS: G0422; G0423 ==

== ENCOUNTER 2024-03-15 10:48 | Outpatient (RCR) | payer MEDICARE, SELFPAY | END 2024-03-15 23:59 | disposition home or self-care (01) | LOC: CRHB 10:48 | PROVIDERS: ATTENDING PHYSICIAN Internal Medicine Cardiovascular Disease | DX: Z95.4 Presence of other heart-valve replacement (principal) | CPT/HCPCS: G0422; G0423 ==

== ENCOUNTER → 2024-03-17 10:53 | Outpatient (REF) | payer MEDICARE, SELFPAY ==
[2024-03-17 12:56] LABS: Albumin 3.9 g/dl (3.5-5.0); Blood Urea Nitrogen 44 mg/dl (9-20); Calcium 9.4 mg/dl (8.4-10.2); Carbon Dioxide 27 mmol/L (22-30); Chloride 106 mmol/L (98-107); Glucose 81 mg/dl (70-99); Phosphorus 3.6 mg/dl (2.5-4.5); Potassium 4.7 mmol/L (3.5-5.1); Sodium 140 mmol/L (135-145); eGFR 43.02
[2024-03-17 14:25] LABS: Urine Protein 14 mg/dl (0-12)
== END ==
LOC: REG 10:53
PROVIDERS: ATTENDING PHYSICIAN Internal Medicine; FAMILY PHYSICIAN Internal Medicine
DX: N18.32 Chronic kidney disease, stage 3b (principal)
CPT/HCPCS: 36415; 80069; 82570; 83970; 84156

== ENCOUNTER 2024-04-10 10:01 | Outpatient (RCR) | payer MEDICARE, SELFPAY | END 2024-04-10 23:59 | disposition home or self-care (01) | LOC: CRHB 10:01 | PROVIDERS: ATTENDING PHYSICIAN Internal Medicine Cardiovascular Disease; FAMILY PHYSICIAN Internal Medicine | DX: I25.10 Atherosclerotic heart disease of native coronary artery without angina pectoris (principal); Z95.4 Presence of other heart-valve replacement | CPT/HCPCS: G0422; G0423 ==

== ENCOUNTER → 2024-04-18 13:14 | Outpatient (REF) | payer MEDICARE, SELFPAY | LOC: RAD 13:14 | PROVIDERS: ATTENDING PHYSICIAN Internal Medicine | DX: M25.461 Effusion, right knee (principal) | CPT/HCPCS: 73564 ==

== ENCOUNTER → 2024-04-18 13:51 | Outpatient (REF) | payer MEDICARE, SELFPAY ==
[2024-04-18 16:00] LABS: % Basophils 0.1 % (0-2); % Eosinophils 0.4 % (0-6); % Immature Granulocytes 0.6 % (0-0.5); % Lymphocytes 7.9 % (20.5-51.1); % Monocytes 7.7 % (1.7-9.3); % Neutrophils 83.3 % (42.2-75.2); Absolute Immature Granulocytes 0.1 10^3/uL (0-0.05); Absolute Lymphocytes 0.8 10^3/uL (1.2-3.4); Absolute Monocytes 0.8 10^3/uL (0.1-0.6); Absolute Neutrophils 8.2 10^3/uL (1.4-6.5); Hematocrit 31.5 % (39.0-52.0); Hemoglobin 10.3 g/dL (13.0-18.0); Mean Corp Hgb Conc. 32.7 g/dL (33.0-37.0); Mean Corpuscular Hgb 30.4 pg (27.0-31.0); Mean Corpuscular Volume 92.9 fL (80.0-94.0); Mean Platelet Volume 11.9 fL (7.4-10.4); Nucleated Red Blood Cells % 0 % (-); Platelet Count 246 10^3/uL (130-400); Red Blood Cell Count 3.39 10^6/uL (4.70-6.10); White Blood Cell Count 9.9 10^3/uL (4.8-10.8)
[2024-04-18 16:19] LABS: Blood Urea Nitrogen 46 mg/dl (9-20); Iron 59 ug/dl (49-181)
[2024-04-18 16:29] LABS: Percent Saturation 18 % (20-50); Total Iron Binding Capacity 325 ug/dl (261-462)
[2024-04-18 16:54] LABS: Ferritin 32.2 ng/ml (17.9-464.0)
== END ==
LOC: REG 13:51
PROVIDERS: ATTENDING PHYSICIAN Internal Medicine Hematology & Oncology
DX: D50.0 Iron deficiency anemia secondary to blood loss (chronic) (principal); D64.9 Anemia, unspecified; R79.9 Abnormal finding of blood chemistry, unspecified; Z85.46 Personal history of malignant neoplasm of prostate; K92.1 Melena; N18.30 Chronic kidney disease, stage 3 unspecified
CPT/HCPCS: 36415; 82565; 82728; 83540; 83550; 84520; 85025

== ENCOUNTER 2024-04-21 10:21 | Outpatient (RCR) | payer MEDICARE, SELFPAY | END 2024-04-21 23:59 | disposition home or self-care (01) | LOC: CRHB 10:21 | PROVIDERS: ATTENDING PHYSICIAN Internal Medicine Cardiovascular Disease; FAMILY PHYSICIAN Internal Medicine | DX: Z95.3 Presence of xenogenic heart valve (principal) | CPT/HCPCS: G0422; G0423 ==

== ENCOUNTER → 2024-05-05 12:33 | Outpatient (REF) | payer MEDICARE, SELFPAY | LOC: RAD 12:33 | PROVIDERS: ATTENDING PHYSICIAN Internal Medicine | DX: M25.461 Effusion, right knee (principal) | CPT/HCPCS: 93971 ==

== ENCOUNTER → 2024-07-17 12:42 | Outpatient (REF) | payer MEDICARE, SELFPAY ==
[2024-07-17 13:51] LABS: % Basophils 0.6 % (0-2); % Eosinophils 2.7 % (0-6); % Immature Granulocytes 0.2 % (0-0.5); % Monocytes 11.1 % (1.7-9.3); % Neutrophils 70.4 % (42.2-75.2); Absolute Eosinophils 0.1 10^3/uL (0-0.7); Absolute Lymphocytes 0.8 10^3/uL (1.2-3.4); Absolute Monocytes 0.6 10^3/uL (0.1-0.6); Absolute Neutrophils 3.6 10^3/uL (1.4-6.5); Hematocrit 32.1 % (39.0-52.0); Hemoglobin 10.4 g/dL (13.0-18.0); Mean Corp Hgb Conc. 32.4 g/dL (33.0-37.0); Mean Corpuscular Hgb 30.7 pg (27.0-31.0); Mean Corpuscular Volume 94.7 fL (80.0-94.0); Mean Platelet Volume 11.7 fL (7.4-10.4); Nucleated Red Blood Cells % 0 % (-); Platelet Count 172 10^3/uL (130-400); Red Blood Cell Count 3.39 10^6/uL (4.70-6.10); Red Cell Dist. Width 14.2 % (11.5-14.5); White Blood Cell Count 5.1 10^3/uL (4.8-10.8)
[2024-07-17 14:03] LABS: Blood Urea Nitrogen 36 mg/dl (9-20); Iron 102 ug/dl (49-181)
[2024-07-17 14:14] LABS: Percent Saturation 27 % (20-50); Total Iron Binding Capacity 377 ug/dl (261-462)
[2024-07-17 14:37] LABS: Ferritin 12.6 ng/ml (17.9-464.0)
== END ==
LOC: REG 12:42
PROVIDERS: ATTENDING PHYSICIAN Internal Medicine Hematology & Oncology; FAMILY PHYSICIAN Internal Medicine
DX: D50.0 Iron deficiency anemia secondary to blood loss (chronic) (principal); D64.9 Anemia, unspecified; R79.9 Abnormal finding of blood chemistry, unspecified; Z85.46 Personal history of malignant neoplasm of prostate; K92.1 Melena; N18.30 Chronic kidney disease, stage 3 unspecified
CPT/HCPCS: 36415; 82565; 82728; 83540; 83550; 84520; 85025

== ENCOUNTER → 2024-07-24 09:53 | Outpatient (REF) | payer MEDICARE, SELFPAY | LOC: HWRCS 09:53 | PROVIDERS: ATTENDING PHYSICIAN Internal Medicine Cardiovascular Disease; FAMILY PHYSICIAN Internal Medicine | DX: I10 Essential (primary) hypertension (principal); Q23.1 Congenital insufficiency of aortic valve; Z95.2 Presence of prosthetic heart valve | CPT/HCPCS: 93306 ==

== ENCOUNTER → 2024-09-13 12:21 | Outpatient (REF) | payer MEDICARE, SELFPAY ==
[2024-09-13 15:46] LABS: Albumin 4.1 g/dl (3.5-5.0); Blood Urea Nitrogen 37 mg/dl (9-20); Calcium 8.8 mg/dl (8.4-10.2); Carbon Dioxide 32 mmol/L (22-30); Chloride 101 mmol/L (98-107); Glucose 105 mg/dl (70-99); Phosphorus 2.7 mg/dl (2.5-4.5); Potassium 4.2 mmol/L (3.5-5.1); Sodium 143 mmol/L (135-145); eGFR 39.75
[2024-09-13 16:59] LABS: Urine Protein 10 mg/dl (0-12)
== END ==
LOC: REG 12:21
PROVIDERS: ATTENDING PHYSICIAN Internal Medicine; FAMILY PHYSICIAN Internal Medicine
DX: N18.32 Chronic kidney disease, stage 3b (principal)
CPT/HCPCS: 36415; 80069; 82570; 84156

== ENCOUNTER → 2024-10-17 12:06 | Outpatient (REF) | payer MEDICARE, SELFPAY ==
[2024-10-17 13:55] LABS: % Basophils 0.1 % (0-2); % Eosinophils 3.2 % (0-6); % Immature Granulocytes 0.4 % (0-0.5); % Lymphocytes 16.8 % (20.5-51.1); % Monocytes 10.3 % (1.7-9.3); % Neutrophils 69.2 % (42.2-75.2); Absolute Eosinophils 0.3 10^3/uL (0-0.7); Absolute Lymphocytes 1.3 10^3/uL (1.2-3.4); Absolute Monocytes 0.8 10^3/uL (0.1-0.6); Absolute Neutrophils 5.4 10^3/uL (1.4-6.5); Hematocrit 35.2 % (39.0-52.0); Hemoglobin 11.3 g/dL (13.0-18.0); Mean Corp Hgb Conc. 32.1 g/dL (33.0-37.0); Mean Corpuscular Hgb 30.9 pg (27.0-31.0); Mean Corpuscular Volume 96.2 fL (80.0-94.0); Mean Platelet Volume 12.2 fL (7.4-10.4); Nucleated Red Blood Cells % 0 % (-); Platelet Count 164 10^3/uL (130-400); Red Blood Cell Count 3.66 10^6/uL (4.70-6.10); Red Cell Dist. Width 13.7 % (11.5-14.5); White Blood Cell Count 7.8 10^3/uL (4.8-10.8)
[2024-10-17 14:31] LABS: Blood Urea Nitrogen 49 mg/dl (9-20); Iron 67 ug/dl (49-181)
[2024-10-17 14:40] LABS: Percent Saturation 22 % (20-50); Total Iron Binding Capacity 297 ug/dl (261-462)
[2024-10-17 15:36] LABS: Folate > 20.0 ng/ml (2.76-20); Vitamin B12 > 1000 pg/ml (239-931)
== END ==
LOC: REG 12:06
PROVIDERS: ATTENDING PHYSICIAN Internal Medicine Hematology & Oncology; FAMILY PHYSICIAN Internal Medicine
DX: D50.0 Iron deficiency anemia secondary to blood loss (chronic) (principal); D64.9 Anemia, unspecified; R79.9 Abnormal finding of blood chemistry, unspecified; Z85.46 Personal history of malignant neoplasm of prostate; K91.1 Postgastric surgery syndromes; N18.30 Chronic kidney disease, stage 3 unspecified
CPT/HCPCS: 36415; 82565; 82607; 82728; 82746; 83540; 83550; 84520; 85025

== ENCOUNTER → 2025-01-16 13:24 | Outpatient (REF) | payer MEDICARE, SELFPAY | LOC: MRI 3T 13:24 | PROVIDERS: ATTENDING PHYSICIAN Internal Medicine | DX: S02.40EA Zygomatic fracture, right side, initial encounter for closed fracture (principal); W19.XXXA Unspecified fall, initial encounter | CPT/HCPCS: 70540; 76014; 76015 ==

== ENCOUNTER → 2025-02-09 08:36 | Outpatient (REF) | payer MEDICARE, SELFPAY ==
[2025-02-09 09:21] LABS: % Basophils 0.6 % (0-2); % Eosinophils 2.4 % (0-6); % Immature Granulocytes 0.3 % (0-0.5); % Lymphocytes 15.4 % (20.5-51.1); % Monocytes 9.9 % (1.7-9.3); % Neutrophils 71.4 % (42.2-75.2); Absolute Eosinophils 0.2 10^3/uL (0-0.7); Absolute Monocytes 0.7 10^3/uL (0.1-0.6); Absolute Neutrophils 4.8 10^3/uL (1.4-6.5); Hematocrit 30.9 % (39.0-52.0); Mean Corp Hgb Conc. 32.4 g/dL (33.0-37.0); Mean Corpuscular Hgb 29.9 pg (27.0-31.0); Mean Corpuscular Volume 92.5 fL (80.0-94.0); Mean Platelet Volume 11.4 fL (7.4-10.4); Nucleated Red Blood Cells % 0 % (-); Platelet Count 216 10^3/uL (130-400); Red Blood Cell Count 3.34 10^6/uL (4.70-6.10); Red Cell Dist. Width 12.7 % (11.5-14.5); White Blood Cell Count 6.7 10^3/uL (4.8-10.8)
[2025-02-09 09:47] LABS: ALT (SGPT) 12 U/L (0-50); AST (SGOT) 20 U/L (17-59); Albumin 3.9 g/dl (3.5-5.0); Alkaline Phosphatase 80 U/L (38-126); Blood Urea Nitrogen 35 mg/dl (9-20); Calcium 9.3 mg/dl (8.4-10.2); Carbon Dioxide 26 mmol/L (22-30); Chloride 110 mmol/L (98-107); Glucose 90 mg/dl (70-99); HDL Cholesterol 39 mg/dl; LDL Cholesterol, Calculated 47 mg/dl; Potassium 4.3 mmol/L (3.5-5.1); Sodium 144 mmol/L (135-145); Total Bilirubin 0.4 mg/dl (0.2-1.3); Total Cholesterol 98 mg/dl (50-199); Total Protein 6.4 g/dl (6.3-8.2); Triglyceride 60 mg/dl (10-149); Very Low Density Lipoprotein 12 mg/dl (0-30); eGFR 50.18
== END ==
LOC: REG 08:36
PROVIDERS: ATTENDING PHYSICIAN Internal Medicine
DX: Z00.01 Encounter for general adult medical examination with abnormal findings (principal); Z95.0 Presence of cardiac pacemaker; I10 Essential (primary) hypertension; E78.5 Hyperlipidemia, unspecified; R79.9 Abnormal finding of blood chemistry, unspecified; Z68.31 Body mass index [BMI] 31.0-31.9, adult
CPT/HCPCS: 36415; 80053; 80061; 85025

== ENCOUNTER → 2025-03-06 13:18 | Outpatient (REF) | payer MEDICARE, SELFPAY | LOC: RAD 13:18 | PROVIDERS: ATTENDING PHYSICIAN Internal Medicine | DX: G89.29 Other chronic pain (principal); M25.561 Pain in right knee | CPT/HCPCS: 73564 ==

== ENCOUNTER → 2025-03-15 11:58 | Outpatient (REF) | payer MEDICARE, SELFPAY ==
[2025-03-15 13:10] LABS: Albumin 4.0 g/dl (3.5-5.0); Blood Urea Nitrogen 35 mg/dl (9-20); Calcium 9.1 mg/dl (8.4-10.2); Carbon Dioxide 28 mmol/L (22-30); Chloride 107 mmol/L (98-107); Glucose 107 mg/dl (70-99); Potassium 4.6 mmol/L (3.5-5.1); Sodium 141 mmol/L (135-145); eGFR 42.75
== END ==
LOC: REG 11:58
PROVIDERS: ATTENDING PHYSICIAN Internal Medicine
DX: N18.32 Chronic kidney disease, stage 3b (principal)
CPT/HCPCS: 36415; 80069

== ENCOUNTER 2025-04-11 13:57 | Outpatient (RCR) | payer MEDICARE, SELFPAY | END 2025-04-11 23:59 | disposition home or self-care (01) | LOC: RPT 13:57 | PROVIDERS: ATTENDING PHYSICIAN Internal Medicine | DX: M25.512 Pain in left shoulder (principal); M25.561 Pain in right knee; Z73.6 Limitation of activities due to disability; W19.XXXD Unspecified fall, subsequent encounter; R29.6 Repeated falls | CPT/HCPCS: 97110; 97112; 97163; 97530 ==

== ENCOUNTER 2025-05-09 14:21 | Outpatient (RCR) | payer MEDICARE, SELFPAY | END 2025-05-09 23:59 | disposition home or self-care (01) | LOC: RPT 14:21 | PROVIDERS: ATTENDING PHYSICIAN Internal Medicine | DX: M25.512 Pain in left shoulder (principal); M25.561 Pain in right knee; Z73.6 Limitation of activities due to disability; W19.XXXD Unspecified fall, subsequent encounter; R29.6 Repeated falls | CPT/HCPCS: 97110; 97112; 97140; 97530 ==

== ENCOUNTER → 2025-05-18 14:27 | Outpatient (REF) | payer MEDICARE, SELFPAY ==
[2025-05-18 16:09] LABS: Hematocrit 33.1 % (39.0-52.0); Hemoglobin 10.5 g/dL (13.0-18.0); Mean Corp Hgb Conc. 31.7 g/dL (33.0-37.0); Mean Corpuscular Volume 90.9 fL (80.0-94.0); Nucleated Red Blood Cells % 0 % (-); Platelet Count 180 10^3/uL (130-400); Red Cell Dist. Width 14.2 % (11.5-14.5)
[2025-05-18 16:25] LABS: Iron 51 ug/dl (49-181)
[2025-05-18 16:34] LABS: Total Iron Binding Capacity 358 ug/dl (261-462)
[2025-05-18 17:00] LABS: Ferritin 17.5 ng/ml (17.9-464.0)
== END ==
LOC: REG 14:27
PROVIDERS: ATTENDING PHYSICIAN Internal Medicine Hematology & Oncology; FAMILY PHYSICIAN Internal Medicine
DX: D50.0 Iron deficiency anemia secondary to blood loss (chronic) (principal); D64.9 Anemia, unspecified; R79.9 Abnormal finding of blood chemistry, unspecified; Z85.46 Personal history of malignant neoplasm of prostate; K92.1 Melena; N18.30 Chronic kidney disease, stage 3 unspecified
CPT/HCPCS: 36415; 82728; 83540; 83550; 85025